=== PATIENT | male | born 1940 | race Caucasian/White ===

== ENCOUNTER 2018-06-04 22:55 | Emergency (ER) | payer MEDICARE, OTHER, SELFPAY ==
[2018-06-04 22:56] VITALS: BP 122/66; PULSE 123; RESP 16; TEMP 36.1; O2SAT 97; BMI 26.9
--- NOTE | 2018-06-05 00:10 | CT_ITS ---
STUDY: CT ABDOMEN AND PELVIS WITHOUT CONTRAST REASON FOR EXAM: Male, 78 years old. Abdominal pain. Vomiting. RADIATION DOSAGE (If Supplied By Facility): CTDIvol = ( 16.85 ) mGy, DLP = ( 930.50 ) mGycm TECHNIQUE: Transaxial images were obtained from the dome of the diaphragm to the symphysis pubis without oral contrast, and without intravenous contrast. Sagittal and coronal images were reconstructed. Individualized dose optimization techniques were used for this CT. COMPARISON: None. FINDINGS: There is mild atelectasis in the visualized posterior lung bases. The visualized portions of the heart are within normal limits. There is decreased attenuation of the liver consistent with steatosis. Normal gallbladder and extrahepatic biliary system. There is mild splenomegaly. There are a few small calcifications in the head of the pancreas which might represent chronic pancreatitis. The pancreas is otherwise normal in appearance with no evidence for acute pancreatitis. Normal bilateral adrenal glands. Normal right kidney. Normal left kidney. There is a small hiatal hernia. Normal small intestine. There are multiple colonic diverticula consistent with diverticulosis. The appendix is visualized posterior to the cecum on axial images 84-96. It contains some radiodense material but otherwise appears normal, with no evidence for acute appendicitis.. There is mild atherosclerotic calcification of the abdominal aorta, without a demonstrated aneurysm. There is an IVC filter in place. Normal retroperitoneum. There are multiple mildly hyperplastic mesenteric lymph nodes in the midabdomen which range up to 7 mm in short axis diameter. There is apparent mild mural thickening of the urinary bladder which may be an artifact of limited distention or may represent cystitis or other bladder pathology. Prostate gland is enlarged. There are small inguinal hernias which contain fat, but no bowel. There are surgical mesh underlying the anterior abdominal wall, consistent with a previous ventral hernia repair. There are diffuse degenerative changes of the visualized lumbar spine. CT/Abdomen/Pelvis without Cont IMPRESSION: Fatty liver. Mild splenomegaly. Suspect chronic pancreatitis. No evidence for acute pancreatitis. Small hiatal hernia. Colonic diverticulosis, without evidence for acute diverticulitis. Enlarged prostate. Mural thickening of the urinary bladder may be an artifact of limited distention or may represent cystitis or bladder pathology. Atherosclerosis. IVC filter. Previous ventral hernia repair. Mild mesenteric lymph node hyperplasia, possibly representing mesenteric lymphadenitis. No demonstrated urinary calculi or hydronephrosis. No evidence for appendicitis. No evidence for bowel obstruction or ileus. Electronically Signed: Dylan Pleitez MD at 1:53 EST , Service support ,
[2018-06-05 00:29] VITALS: PULSE 90; RESP 16; O2SAT 95
[2018-06-05] MEDS: Ondansetron 4 MG/2 ML Vial IV ×2 (00:30→02:20)
[2018-06-05] MEDS: 0.9% Normal Saline 1,000 ML 1000 ML IV (00:30)
[2018-06-05] MEDS: Diphenoxylate/Atrop 1 Tablet PO (00:31)
[2018-06-05 00:39] LABS: Absolute Lymphocyte Count 1.82 X10^3/ul (0.83-4.51); Absolute Neutrophil Count 9.6 X10^3/uL (2.0-7.7); Basophil# 0.01 X10^3/uL; Basophil% 0.1 % (0-1); Eosinophil# 0.31 X10^3/uL; Eosinophils% 2.5 % (0-5); Hematocrit 41.6 % (40-54); Hemoglobin 14.9 g/dl (13.0-16.5); Lymphocyte # 1.82 X10^3/ul (4.0); Lymphocyte % 14.5 % (19-41); Mean Corp Hgb Conc 35.8 g/gl (32-36); Mean Corpuscular Volume 86.7 fL (80-94); Mean Platelet Vol. 10.5 fl (6.2-12.0); Monocyte# 0.81 X10^3/uL; Monocyte% 6.5 % (0-10); Neutrophil # 9.55 X10^3/uL (2.7-7.7); Neutrophil % 76.2 % (47-70); POSITIVE COUNT NO; POSITIVE DIFFERENTIAL NO; POSITIVE MORPHOLOGY NO; Platelet Count 169 K/mm3 (150-450); RBC Distribution Width CV 13.9 % (11.6-14.6); RBC Distribution Width SD 43.7 fl (35.1-43.9); White Blood Count 12.5 K/mm3 (4.4-11.0)
[2018-06-05 01:01] VITALS: BP 132/70; PULSE 83; RESP 16; O2SAT 93
[2018-06-05 01:13] LABS: ALB/GLOB Ratio 0.8 RATIO (0.9-2.4); AST(SGOT) 39 U/L (15-37); Alanine Aminotransfer ALT/SGPT 46 U/L (16-61); Albumin, Serum 3.3 g/dL (3.2-5.0); Alkaline Phosphatase 88 U/L (45-117); Anion Gap 11 (5-15); BUN 24 mg/dL (7-18); BUN/Creat Ratio 17.9 RATIO (10-20); Calcium,Total 9.3 mg/dL (8.5-10.1); Chloride 108 mmol/L (98-107); Creatinine, Serum 1.34 mg/dL (0.70-1.30); EST Glomerular Filtration Rate 55 mL/min (>60); Est Glom Filt Rate - Afr Amer 67 mL/min (>60); Estimated Creatinine Clearance 54.53 ml/min; Globulin 4.3 g/dL (2.2-4.2); Glucose 239 mg/dL (74-106); Lipase 82 U/L (73-393); Potassium 3.2 mmol/L (3.5-5.1); Protein, Total 7.6 g/dL (6.4-8.2); Sodium Level 138 mmol/L (136-145)
[2018-06-05 01:35] VITALS: BP 125/75; PULSE 84; RESP 16; O2SAT 98
[2018-06-05] MEDS: 0.9% Normal Saline 1,000 ML 999 ML IV (02:19)
--- NOTE | 2018-06-05 02:21 | ED.VISSUMM ---
- ER Visit Summary Date of Service: 06/05/18 Chief Complaint: Diarrhea History of Present Illness: The patient is a 78 M presenting for evaluation secondary diarrhea. Patient reports over the course last 6 days he has having loose watery diarrhea. He reports that he is having up to 10-15 episodes per day. This been associated with nausea and vomiting that started today. Patient states that he tends to have a history of getting colitis about once a year but this seems to be lasting somewhat longer. Denies any new exposures, antibiotic use, recent hospital admissions, or travel. Patient does state that he has a mild amount of abdominal pain associated with this that is crampy and diffuse and nonlocalizing. Review of systems otherwise negative. Physical Examination: Vital signs are within normal limits, patient is afebrile. General: Patient is well-nourished well-developed and in no acute distress. Head: Normocephalic, atraumatic Eyes: Pupils equal round and reactive bilaterally, extra occular motion intact bialterally ENT: Moist mucous membranes Neck: Supple, no lymphadenopathy, no JVD, no meningismus CVS: Heart regular rate and rhythm, no murmurs, rubs or gallops, radial pulses 2+ bilaterally Resp: Respirations nondistressed, lung sounds clear bilaterally Abdomen: Soft, diffuse nonlocalizing tenderness, nondistended, no palpable masses, normal bowel sounds Back: Nontender Extremities: Nontender, atraumatic, active full range of motion, no peripheral edema Skin: warm, no rashes, no petechia Neuro: Alert and oriented x 4, CN 2-12 intact, no lateralizing neurological defecits Psyc: Normal affect Test Results: CT abdomen and pelvis shows mesenteric adenitis. CBC shows leukocytosis of 12, chemistry shows mild acidosis CO2 at 19 creatinine 1.3 liver and lipase are unremarkable potassium mildly low at 3.2 Emergency Department Course and Treatment: Patient presented for evaluation secondary to prolonged diarrhea. Does not seem to have any risk factors for infectious colitis, but he did have some mild abdominal tenderness. CT shows mesenteric adenitis. Lab work was essentially unremarkable except for very mild acidosis and mild hypokalemia. Patient was given 2 L normal saline and Lomotil and Zofran had improvement. I had a extensive conversation with patient about inpatient versus outpatient management, he does feel comfortable with outpatient management at this point and given his stable vital signs and relatively normal workup I believe this to be appropriate. He will be sent home with a course of Zofran, instructed on aggressive hydration, he understands signs and symptoms which to return to follow-up with primary care within the next 1-2 days. Disposition: Discharge Impression: 1. Mesenteric adenitis 2. Colitis This note was generated with [employer] dictation software. It may contain incorrect words, spelling, and punctuation that were not noted in review of the chart prior to signing ED Disposition - Plan for ED Patient: Disposition: Home or Assisted Living Chief Complaint: Nausea/Vomiting/Diarrhea Diagnosis: Mesenteric adenitis Instructions: ED Gastroenteritis Non Infec, ED Adenitis Mesenteric Prescriptions: Ondansetron [Zofran Odt] 4 mg PO Q8H PRN PRN #10 tab PRN Reason: Nausea [facility]errals: [facility] [Primary Care Provider] - 2 Days
[2018-06-05 03:45] VITALS: BP 131/78; PULSE 85; RESP 16; O2SAT 95
== END 2018-06-05 03:45 | disposition home or self-care (01) ==
PROVIDERS: Emergency Provider Emergency Medicine
DX: I88.0 Nonspecific mesenteric lymphadenitis (principal); K52.9 Noninfective gastroenteritis and colitis, unspecified; E11.9 Type 2 diabetes mellitus without complications; I10 Essential (primary) hypertension; E78.00 Pure hypercholesterolemia, unspecified; Z86.73 Personal history of transient ischemic attack (TIA), and cerebral infarction without residual deficits; Z86.718 Personal history of other venous thrombosis and embolism
CPT/HCPCS: 74176; 80053; 83690; 85025; 96361; 96374; 96376; 99284; J7030; A4216; J2405

== ENCOUNTER 2020-03-01 10:39 | Emergency (ER) | payer OTHER, MEDICARE, SELFPAY ==
[2020-03-01 10:41] VITALS: BP 148/72; PULSE 71; RESP 16; TEMP 36.3; O2SAT 98; BMI 29.5
[2020-03-01 10:42] VITALS: BP 148/72; PULSE 71; RESP 16; TEMP 36.3; O2SAT 98
--- NOTE | 2020-03-01 10:59 | ED.VIS.GEN ---
History of Present Illness Chief Complaint: Complaint Informant: Patient, Significant Other Onset: Days - 1-2 Context: Gradual Onset Timing: Intermittent Quality: burning Location: urethral Current Severity: Moderate Maximum Severity: Moderate Worsened by: urinating Relieved by: nothing Associated Symptoms: both testicles/scrotum ache. nausea. Narrative: Patient states he has a urethral stricture somewhere, was scheduled for a scope at the [facility] several days ago however since he was on blood thinners for some reason they had to reschedule it for a month from now, he states he urinates frequently, every hour or 2, that is typical for him, but now he has a burning dysuria. No fevers or chills, no new back pain although he has chronic back discomfort. States he is cramping in his lower abdomen. He states when they try to do a bladder scan at the [facility] this past week, they were not able to find his bladder easily and assumed that it was emptying. He denies any hematuria at this time. He is still urinating. - Past Medical History (1) Benign prostatic hyperplasia Status: Chronic (2) Dementia Status: Chronic (3) Depression Status: Chronic (4) History of DVT (deep vein thrombosis) Status: Chronic (5) History of pulmonary embolism Status: Chronic (6) Hyperlipidemia Status: Chronic (7) Hypertension Status: Chronic (8) Type 2 diabetes mellitus Status: Chronic Past Medical History - Allergies and Home Meds Allergies/Adverse Reactions: Allergies No Known Allergies Allergy (Verified 03/01/20 10:42) Primary Care Physician: [place] [place] [Primary Care Provider] - Surgical History: herniorrhaphy Lives: Spouse/ Significant Other Smoking Status: Never smoker - Family History Maternal Family History: Reports: No pertinent history Paternal Family History: Reports: No pertinent history Review of Systems General: Denies: Chills, Fever, Sweats Eyes: Denies: Visual changes - bilaterally, Diplopia ENT: Denies: Rhinorrhea, Sore throat Cardiovascular: Denies: Chest pain, Palpitations Respiratory: Denies: Dyspnea, Cough, Dyspnea on exertion Gastrointestinal: Reports: Abdominal pain, Nausea. Denies: Vomiting, Diarrhea, Melena, Hematochezia Genitourinary: Reports: Dysuria, Frequency. Denies: Hematuria Musculoskeletal: Reports: Back pain. Denies: Neck pain, Extremity Pain Skin: Denies: Rash, Wounds Neurological: Denies: Headache, Weakness, Numbness Physical Exam Vital Signs/Narrative: Vital Signs Temp Pulse Resp BP Pulse Ox 03/01/20 10:42 97.4 F L 71 16 148/72 H 98 03/01/20 10:41 97.4 F L 71 16 148/72 H 98 Inital Vital Signs reviewed: Yes General: Well nourished, Well developed, No Acute Distress Head: Normocephalic, Atraumatic Eyes: Perrl, EOMI ENT: Moist mucous membranes, No rhinorrhea Neck: Supple, Nontender Cardiovascular: Regular rate, Regular rhythm, No murmurs. Negative for: Tachycardia Respiratory: No distress, CTA bilaterally, Chest nontender Abdomen: Soft, Nondistended, Normal bowel sounds, Tender - Suprapubic only. Negative for: Guarding, Rebound tenderness, Pulsatile mass : - - Mild tenderness diffusely scrotum and testicles. Both testicles descended. No blue dot sign, signs of cellulitis, or abnormal cremasteric reflex. Back: Nontender, Normal Inspection. Negative for: CVA tenderness Extremities: Nontender, No edema Skin: Normal color, No rash Neurological: Alert, Oriented x3, Cranial nerves II-XII grossly intact, Normal Strength, Normal Sensation Psychological: Normal affect, Normal Mood Diagnostic/Tx/Re-eval Laboratory Tests 03/01/20 Range/Units 11:32 Urine Color Yellow (Yellow) Urine Clarity Clear (Clear) Urine pH 6.0 (5.0 - 8.0) Ur Specific [place] 1.020 (1.002-1.030) Urine Protein 15 H (Negative) mg/dl Urine Glucose (UA) 1000 H (Normal) mg/dl Urine Ketones 5 H (Negative) mg/dl Urine Occult Blood 10 H (Negative) /ul Urine Nitrite Negative (Negative) Urine Bilirubin Negative (Negative) mg/dL Urine Urobilinogen Normal (Normal) mg/dl Ur Leukocyte Esterase 500 H (Negative) /ul Urine RBC 0 SEEN (0-5) /hpf Urine WBC 10-25 SEEN (0-5) /hpf Ur Squamous Epith Cells 0-5 SEEN (0-5) /hpf Urine Bacteria 0 SEEN (None Seen) /hpf Urine Mucus 0 SEEN (<or=2+) /hpf - Medical Decision Making Patient had a postvoid residual of only 100 cc, which is reassuring evidence against acute urinary retention, and a urinalysis that is consistent with infection. We will treat him for nonhemorrhagic cystitis, and advise close outpatient follow-up with his urologist. He is comfortable with that plan. With regards to his testicular tenderness, if he has epididymitis bilaterally, and/or orchido-epididymitis, the antibiotic should help those as well. ED Disposition - Plan for ED Patient: Disposition: Home or Assisted Living Diagnosis: Cystitis Instructions: ED CYSTITIS Male Adult Prescriptions: Cephalexin [Keflex] 500 mg PO TID #30 cap Transmission Status: Pending to [facility] Referrals: [facility] [Primary Care Provider] - 3-5 Days if not improving (your urologist)
[2020-03-01 11:37] LABS: Bacteria 0 SEEN /hpf (None Seen); Mucous, Urine 0 SEEN /hpf (<or=2+); Red Blood Cells-Urine 0 SEEN /hpf (0-5)
[2020-03-01 11:38] LABS: Color, Urine Yellow (Yellow); Glucose, Dipstick 1000 mg/dl (Normal); Ketone-Dipstick 5 mg/dl (Negative); Leukocyte Esterase-Dipstick 500 /ul (Negative); Nitrite-Dipstick Negative (Negative); Occult Blood-Urine 10 /ul (Negative); Protein-Dipstick 15 mg/dl (Negative); Urine Bilirubin Dipstick Negative (Negative); Urine Clarity Clear (Clear); Urine Urobilinogen Normal (Normal)
[2020-03-01 11:51] LABS: Squamous Epithelial Cells - UA 0-5 SEEN /hpf (0-5); White Blood Cells 10-25 SEEN /hpf (0-5)
[2020-03-01] MEDS: Cephalexin 250 MG Capsule 500 MG PO (12:05)
== END 2020-03-01 12:09 | disposition home or self-care (01) ==
PROVIDERS: Emergency Provider Emergency Medicine
DX: N30.90 Cystitis, unspecified without hematuria (principal); N35.919 Unspecified urethral stricture, male, unspecified site; F03.90 Unspecified dementia, unspecified severity, without behavioral disturbance, psychotic disturbance, mood disturbance, and anxiety; Z86.718 Personal history of other venous thrombosis and embolism; Z86.711 Personal history of pulmonary embolism; E78.5 Hyperlipidemia, unspecified; I10 Essential (primary) hypertension; E11.9 Type 2 diabetes mellitus without complications; Z79.02 Long term (current) use of antithrombotics/antiplatelets; Z79.84 Long term (current) use of oral hypoglycemic drugs; Z79.899 Other long term (current) drug therapy
CPT/HCPCS: 81001; 87086; 87088; 99283

== ENCOUNTER 2020-03-24 13:03 | Emergency (ER) | payer OTHER, MEDICARE, SELFPAY ==
[2020-03-24 13:05] VITALS: BP 143/89; PULSE 86; RESP 18; TEMP 36.7; O2SAT 97; BMI 29.7
--- NOTE | 2020-03-24 14:11 | CT_ITS ---
STUDY: CT ABDOMEN AND PELVIS WITHOUT CONTRAST REASON FOR EXAM: Male, 80 years old. LEFT LOWER ABDOMINAL PAIN AND LEFT TESTICULAR PAIN. Hx of diabetes, HTN and HLD RADIATION DOSAGE (If Supplied By Facility): CTDIvol = ( 16.44 ) mGy, DLP = ( 1573.18 ) mGycm TECHNIQUE: Transaxial images were obtained from the dome of the diaphragm to the symphysis pubis without oral contrast, and without intravenous contrast. Sagittal and coronal images were reconstructed. Individualized dose optimization techniques were used for this CT. COMPARISON: Comparison is made with prior examination dated 06/05/2018. FINDINGS: The visualized lung bases are unremarkable. The visualized portions of the heart are within normal limits. There is decreased attenuation of the liver consistent with steatosis. Normal gallbladder and extrahepatic biliary system. There is mild splenomegaly. Stable punctate calcifications in the head of the pancreas. Normal bilateral adrenal glands. 1 cm cyst in the lateral aspect of the right kidney. Normal left kidney. Normal visualized stomach. Normal small intestine. There are multiple colonic diverticula consistent with diverticulosis. The appendix is visualized and appears normal. There is scattered atherosclerotic calcification of the abdominal aorta, without a demonstrated aneurysm. There is an IVC filter in place. Normal retroperitoneum. Normal urinary bladder. There are prostatic calcifications. There is evidence of prior anterior abdominal wall hernia repair with a mesh. There are mild degenerative changes of the visualized lumbar spine. CT/Abdomen/Pelvis W IV Cont ONLY IMPRESSION: Fatty infiltration of liver. Mild splenomegaly. Sigmoid diverticulosis. Electronically Signed: Sergey Espinoza, at 15:50 EDT , Service support ,
--- NOTE | 2020-03-24 14:13 | US_ITS ---
STUDY: SCROTUM ULTRASOUND REASON FOR EXAM: Male, 80 years old. LEFT TESTICULAR PAIN 3WEEKS -- hx UTI TECHNIQUE: Ultrasound evaluation of the scrotum was performed with color Doppler and static sheikh-scale imaging. COMPARISON: None. FINDINGS: RIGHT TESTICLE INTRATESTICULAR: There is a normal size of the right testicle. The right testicle measures 3.8 cm x 3 cm x 2.5 cm. There is a homogenous echotexture. There is normal arterial and normal venous vascularity. There is no demonstrated right testicular mass or cyst. EXTRATESTICULAR: The epididymis is normal in size. The epididymis head measures 0.6 cm x 1 cm x 0.5 cm. There is increased (hyperemic) vascularity of the epididymis. There is no demonstrated epididymal cystic structure. There is no demonstrated hydrocele. There is no demonstrated varicocele. There is no demonstrated extratesticular mass or cyst. LEFT TESTICLE INTRATESTICULAR: There is a normal size of the left testicle. The left testicle measures 3.1 cm x 2.7 cm x 1.9 cm. There is a homogenous echotexture. There is normal arterial and normal venous vascularity. There is no demonstrated left testicular mass or cyst. EXTRATESTICULAR: The epididymis is enlarged. The epididymis head measures 0.7 cm x 0.8 cm x 0.8 cm. There is increased (hyperemic) vascularity of the epididymis. There is no demonstrated epididymal cystic structure. There is no demonstrated hydrocele. There is no demonstrated varicocele. There is no demonstrated extratesticular mass or cyst. US/Testicular with Arterial Flow IMPRESSION: Findings suggestive of bilateral epididymitis more prominent on the left side. Electronically Signed: Sergey Espinoza, at 15:57 EDT , Service support ,
[2020-03-24] MEDS: Morphine 2 MG/ML Syringe IV (14:33)
[2020-03-24] MEDS: Ondansetron 4 MG/2 ML Vial IV (14:33)
[2020-03-24 14:37] LABS: Absolute Lymphocyte Count 1.87 X10^3/uL (0.83-4.51); Absolute Neutrophil Count 4.6 X10^3/uL (2.0-7.7); Basophil# 0.05 X10^3/uL; Basophil% 0.7 % (0-1); Eosinophil# 0.53 X10^3/uL; Eosinophils% 7.1 % (0-5); Hematocrit 33.2 % (40-54); Lymphocyte # 1.87 X10^3/ul (4.0); Lymphocyte % 25.1 % (19-41); Mean Corp Hgb Conc 33.1 g/dL (32-36); Mean Corpuscular Hgb 29.5 pg (27.0-32.0); Mean Platelet Vol. 9.4 fl (6.2-12.0); Monocyte# 0.41 X10^3/uL; Monocyte% 5.5 % (0-10); NRBC Flagged by Analyzer 0 % (0-5); Neutrophil # 4.57 X10^3/uL (2.7-7.7); Neutrophil % 61.3 % (47-70); Platelet Count 147 K/mm3 (150-450); RBC Distribution Width CV 13.9 % (11.6-14.6); RBC Distribution Width SD 45.1 fl (35.1-43.9); Red Blood Count 3.73 M/mm3 (4.6-6.2); White Blood Count 7.5 K/mm3 (4.4-11.0)
[2020-03-24 14:39] VITALS: BP 143/89; PULSE 86; RESP 18; TEMP 36.7; O2SAT 97
--- NOTE | 2020-03-24 14:47 | ED.DCSUM_ITS ---
History of Present Illness Chief Complaint: Male Pain/Injury Informant: Patient Narrative: 80-year-old male presents with concern for scrotal pain. States that approximately 1 week ago he had an attempted cystoscopy with but was found to have a ureteral stricture. States that since that time he has been developing pain in his lower abdomen including his suprapubic region. Describes it as aching. Patient states he also began developing pain in his left scrotum. Describes this is aching as well. No relieving or worsening factors. Was seen by his primary care physician today who was concerned for a high riding testicle. Denies any trauma to the area. Denies any hematuria. Denies any hematochezia or melena. Moving bowels without issue. Denies any fever, chills, chest pain, shortness of breath, nausea, vomiting. Past Medical History - Allergies and Home Meds Allergies/Adverse Reactions: Allergies No Known Allergies Allergy (Verified 03/24/20 13:10) Primary Care Physician: [place] [place] [Primary Care Provider] - Past Medical History: - - Diabetes, hypertension, pulmonary embolism, DVT, dementia Surgical History: herniorrhaphy Smoking Status: Never smoker Alcohol: None Drugs: None - Family History Maternal Family History: Reports: No pertinent history Paternal Family History: Reports: No pertinent history Physical Exam Vital Signs/Narrative: Vital Signs Temp Pulse Resp BP Pulse Ox 03/24/20 14:39 98.1 F 86 18 143/89 H 97 03/24/20 13:05 98.1 F 86 18 143/89 H 97 Diagnostic/Tx/Re-eval Clinical Impression(s) from Imaging Studies Abdomen/Pelvis CT 03/24/20 14:11 IMPRESSION: Fatty infiltration of liver. Mild splenomegaly. Sigmoid diverticulosis. Electronically Signed: Sergey Espinoza, at 15:50 EDT , Service support , Testicular Ultrasound 03/24/20 14:13 IMPRESSION: Findings suggestive of bilateral epididymitis more prominent on the left side. Electronically Signed: Sergey Espinoza, at 15:57 EDT , Service support , Laboratory Data 03/24/20 03/24/20 03/24/20 14:30 14:30 16:00 WBC 7.5 RBC 3.73 L Hgb 11.0 L Hct 33.2 L MCV 89.0 MCH 29.5 MCHC 33.1 RDW Std Deviation 45.1 H RDW Coeff of Melany 13.9 Plt Count 147 L MPV 9.4 Immature Gran % (Auto) 0.300 Neut % (Auto) 61.3 Lymph % (Auto) 25.1 Whiteside % (Auto) 5.5 Eos % (Auto) 7.1 H Baso % (Auto) 0.7 Absolute Neuts (auto) 4.6 Absolute Lymphs (auto) 1.87 Nucleated RBC % 0 Sodium 139 Potassium 3.9 Chloride 106 Carbon Dioxide 26.0 Anion Gap 7 BUN 16 Creatinine 1.21 Estim Creat Clear Calc 58.50 Est GFR (MDRD) Af Amer 75 Est GFR (MDRD) Non-Af 62 BUN/Creatinine Ratio 13.2 Glucose 311 H Calcium 9.0 Total Bilirubin 0.80 AST 27 ALT 36 Alkaline Phosphatase 65 Total Protein 7.1 Albumin 3.2 Globulin 3.9 Albumin/Globulin Ratio 0.8 L Urine Color Yellow Urine Clarity Sl. Cloudy Urine pH 6.5 Ur Specific [place] 1.010 Urine Protein Negative Urine Glucose (UA) 1000 H Urine Ketones Negative Urine Occult Blood 10 H Urine Nitrite Negative Urine Bilirubin Negative Urine Urobilinogen Normal Ur Leukocyte Esterase Negative Urine RBC 0 SEEN Urine WBC 0 SEEN Ur Squamous Epith Cells 0-5 SEEN Urine Bacteria 0 SEEN Urine Mucus 0 SEEN - Medical Decision Making Appears well and nontoxic. Vital signs within normal limits. Afebrile. CT of the abdomen pelvis shows no acute process. Ultrasound of the scrotum shows a bilateral epididymitis worse on the left. Urine shows no continued evidence of infection following treatment with Keflex last week. Patient will be advised on supportive underwear as well as Tylenol for pain relief. Asked to follow-up with urologist at [place]. Asked to return for new or worsening symptoms. Patient agreeable and discharged home in stable condition. Impression: 1. Bilateral epididymitis ED Disposition - Plan for ED Patient: Disposition: Home or Assisted Living Instructions: ED Epididymitis Referrals: [facility] [Primary Care Provider] -
[2020-03-24 14:54] LABS: ALB/GLOB Ratio 0.8 RATIO (0.9-2.4); AST(SGOT) 27 U/L (15-37); Alanine Aminotransfer ALT/SGPT 36 U/L (16-61); Albumin, Serum 3.2 g/dL (3.2-5.0); Alkaline Phosphatase 65 U/L (45-117); Anion Gap 7 (5-15); BUN 16 mg/dL (7-18); BUN/Creat Ratio 13.2 RATIO (10-20); Chloride 106 mmol/L (98-107); Creatinine, Serum 1.21 mg/dL (0.70-1.30); EST Glomerular Filtration Rate 62 mL/min (>60); Est Glom Filt Rate - Afr Amer 75 mL/min (>60); Globulin 3.9 g/dL (2.2-4.2); Glucose 311 mg/dL (74-106); Potassium 3.9 mmol/L (3.5-5.1); Protein, Total 7.1 g/dL (6.4-8.2); Sodium Level 139 mmol/L (136-145)
[2020-03-24 16:04] LABS: Bacteria 0 SEEN /hpf (None Seen); Mucous, Urine 0 SEEN /hpf (<or=2+); Red Blood Cells-Urine 0 SEEN /hpf (0-5); White Blood Cells 0 SEEN /hpf (0-5)
[2020-03-24 16:23] LABS: Color, Urine Yellow (Yellow); Glucose, Dipstick 1000 mg/dl (Normal); Ketone-Dipstick Negative (Negative); Leukocyte Esterase-Dipstick Negative /ul (Negative); Nitrite-Dipstick Negative (Negative); Occult Blood-Urine 10 /ul (Negative); Protein-Dipstick Negative (Negative); Urine Bilirubin Dipstick Negative (Negative); Urine Clarity Sl. Cloudy (Clear); Urine Urobilinogen Normal (Normal); Urine pH 6.5 (5.0 - 8.0)
[2020-03-24 16:40] LABS: Squamous Epithelial Cells - UA 0-5 SEEN /hpf (0-5)
[2020-03-24 17:04] VITALS: BP 135/77; PULSE 84; RESP 17; O2SAT 98
== END 2020-03-24 17:05 | disposition home or self-care (01) ==
PROVIDERS: Emergency Provider Emergency Medicine
DX: N45.1 Epididymitis (principal); E11.9 Type 2 diabetes mellitus without complications; I10 Essential (primary) hypertension; F03.90 Unspecified dementia, unspecified severity, without behavioral disturbance, psychotic disturbance, mood disturbance, and anxiety; Z86.718 Personal history of other venous thrombosis and embolism; Z86.711 Personal history of pulmonary embolism
CPT/HCPCS: 74177; 76870; 80053; 81001; 85025; 93976; 96374; 96375; 99283; A4216; J2405

== ENCOUNTER → 2020-04-10 | Outpatient (CLI) | payer OTHER, MEDICARE, SELFPAY ==
[2020-03-24 13:05] VITALS: BMI 29.7
--- NOTE | 2020-04-10 14:16 | US_ITS ---
STUDY: SCROTUM ULTRASOUND REASON FOR EXAM: Male, 80 years old. epididymitis -- previous scan on 03/24/20 -- on 2nd round of anti biotics TECHNIQUE: Ultrasound evaluation of the scrotum was performed with color Doppler and static sheikh-scale imaging. COMPARISON: None. FINDINGS: RIGHT TESTICLE INTRATESTICULAR: There is a normal size of the right testicle. The right testicle measures 4.3 x 2.7 x 1.9 cm. There is a homogenous echotexture. There is normal arterial and normal venous vascularity. There is no demonstrated right testicular mass or cyst. EXTRATESTICULAR: The epididymis is normal in size. The epididymis head measures 1.8 cm. There is increased (hyperemic) vascularity of the epididymis. There is no demonstrated epididymal cystic structure. There is no demonstrated hydrocele. There is no demonstrated varicocele. There is no demonstrated extratesticular mass or cyst. Right sided scrotal wall thickening. LEFT TESTICLE INTRATESTICULAR: There is a normal size of the left testicle. The left testicle measures 4.0 x 2.6 x 1.5 cm. There is a heterogeneous echotexture. Ill-defined focal areas of decreased echogenicity are seen as much as 1.4 cm. Heterogeneous left testis is also present previously. There is normal arterial and normal venous vascularity. There is no demonstrated left testicular mass or cyst. EXTRATESTICULAR: The epididymis is normal in size. The epididymis head measures 1.4 cm. There is increased (hyperemic) vascularity of the epididymis. There is no demonstrated epididymal cystic structure. There is no demonstrated hydrocele. There is no demonstrated varicocele. There is no demonstrated extratesticular mass or cyst. Left sided scrotal wall thickening. US/Testicular with Arterial Flow IMPRESSION: Improvement since prior exam. Currently no definite increased vascularity of either testes. Normal blood flow to both testes. Continued increased vascularity of the epididymides. No significant hydroceles. Findings currently suggest bilateral epididymitis with no specific evidence for orchitis. Electronically Signed: Ezequile Hernandez MD at 16:42 EDT , Service support ,
== END | disposition home or self-care (01) ==
LOC: US 14:12
DX: N45.1 Epididymitis (principal)
CPT/HCPCS: 76870; 93976

== ENCOUNTER → 2020-05-04 | Outpatient (CLI) | payer OTHER, MEDICARE, SELFPAY ==
[2020-05-04 16:15] LABS: Hematocrit 35.2 % (40-54); Hemoglobin 11.7 g/dL (13.0-16.5); Mean Corp Hgb Conc 33.2 g/dL (32-36); Mean Corpuscular Hgb 29.9 pg (27.0-32.0); Platelet Count 161 K/mm3 (150-450); RBC Distribution Width CV 14.2 % (11.6-14.6); RBC Distribution Width SD 46.5 fl (35.1-43.9); Red Blood Count 3.91 M/mm3 (4.6-6.2); White Blood Count 7.9 K/mm3 (4.4-11.0)
[2020-05-04 16:37] LABS: ALB/GLOB Ratio 0.8 RATIO (0.9-2.4); AST(SGOT) 34 U/L (15-37); Alanine Aminotransfer ALT/SGPT 42 U/L (16-61); Albumin, Serum 3.3 g/dL (3.2-5.0); Alkaline Phosphatase 67 U/L (45-117); Anion Gap 4 (5-15); BUN 15 mg/dL (7-18); Calcium,Total 8.9 mg/dL (8.5-10.1); Chloride 104 mmol/L (98-107); Creatinine, Serum 1.07 mg/dL (0.70-1.30); EST Glomerular Filtration Rate 71 mL/min (>60); Est Glom Filt Rate - Afr Amer 86 mL/min (>60); Glucose 223 mg/dL (74-106); Potassium 4.1 mmol/L (3.5-5.1); Protein, Total 7.3 g/dL (6.4-8.2); Sodium Level 136 mmol/L (136-145)
== END | disposition home or self-care (01) ==
DX: Z86.718 Personal history of other venous thrombosis and embolism (principal); Z86.711 Personal history of pulmonary embolism
CPT/HCPCS: 36415; 80053; 85027

== ENCOUNTER 2021-11-09 09:53 | Outpatient (CLI) | payer OTHER, MEDICARE, SELFPAY ==
--- NOTE | 2021-11-09 10:01 | PR.ITP_ITS ---
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 Gold Classification:: GOLD 1: Mild - PFT FEV1:: 3.06 - 96% predicted FVC:: 3.72 - 87% predicted FEV1/FVC%:: 82 - 110 % predicted - Personal Learning Style/Barriers Personal Learning Style:: Audio/Visual - , Written Barriers to Learning: Vision impaired, Hearing impaired Stage of change r/t lifestyle modifications: Action Educational Classes [place]: Breathing Retraining: Initial Assessment, Exercise: Initial Assessment, Energy Conservation: Initial Assessment, Preventing infection: Initial Assessment, Nutrition: Initial Assessment - Education/Goals Individual Counseling: Initial Assessment: High Blood Pressure, Diabetes, Overweight/Obesity, Sedentary Lifestyle [place] Patient Goals: Increase muscle strength: Initial Assessment, Experience less dyspnea: Initial Assessment, Improve energy level: Initial Assessment, Improve the ability to cope with ADLs: Initial Assessment, Improve knowledge of lung disease: Initial Assessment, Understand how to use medications: Initial Assessment, Control panic/anxiety: Initial Assessment, Improve my quality of life: Initial Assessment, Reduce Stress/relaxation techniques: Initial Assessment Exercise - Initial Assessment - Visit Date of Eval: 11/09/21 Session Number:: 0 - pre-pulm rehab evaluation - Problem/Goals Problems: Deconditioning, No regular exercise, Knowledge deficit exercise safety Goals:: Aerobic exercise 30-60 mins x 12 weeks [36 sessions] - Physician Prescribed Exercise Modalities: Treadmill, Airdyne, NuStep Frequency (days/week): 3 Duration (Minutes):: 30-45 Intensity: 60-80% of age predicted maximum heart rate reserve Current METSs:: 3.0 Target HR:: 120 - THRR 92-120 Resting Blood Pressure: 116/66 Core Components - Initial Core Components - 30 DAYS Core Components - 60 DAYS Core Components - 90 DAYS Core Components - Final Patient Health Questionnaire Initial Assessment 1. Little interest or pleasure in doing things: Nearly every day 2. Feeling down, depressed, or hopeless: More than half the days 3. Trouble falling or staying asleep, or sleeping too much: Nearly every day 4. Feeling tired or having little energy: Nearly every day 5. Poor appetite or overeating: Not at all 6. Feeling bad about yourself -- or that you are a failure or have let yourself or your family down: Several days 7. Trouble concentrating on things, such as reading the newspaper or watching television: Nearly every day 8. Moving or speaking so slowly that other people could have noticed. Or the opposite - being so fidgety or restless that you have been moving around a lot more than usual: Several days 9. Thoughts that you would be better off , or of hurting yourself in some way: Several days How difficult have these problems made it for you to do your work, take care of things at home, or get along with other people?: Somewhat difficult Total Score: 17 Knowledge Questionaire (BCKQ) - Information Information: [place] COPD Knowledge Questionnaire (BCKQ) This questionnaire is designed to find out what you know about your lung problem. It should be completed without help form anyone else. This usually takes between 10 and 20 minutes. Your answers will help us to find out what information you need to help you to understand and manage your lung condition. Han the chitina which you think is the correct answer. - Questions b. COPD can only be confirmed by breathing tests: Don't know c. In COPD ther is usually gradual worsening over time: True d. In COPD oxygen levels in the blood are always low: Don't know e. COPD is usually in people less than 40 years old: Don't know Desirae than 80% of COPD cases are caused by cigarette smoking: Don't know b. COPD can be caused by occupational dust exposure: True c. Longstanding asthma can develop into COPD: True d. COPD is commonly an inherited disease: False e. Women are less vunerable to the effects of cigarette than men: False a. Swelling of the ankles is common in COPD:: Don't know b. Fatigue [tiredness] is common in COPD: True c. Wheezing is common in COPD: True d. Crushing chest pain is common in COPD: Don't know e. Rapid weight loss is common in COPD: Don't know a. Severe breathlessness prevents travel by air: True b. Breathlessness can be worsened by eating large meals: Don't know c. Breathlessness means that your oxygen levels are low: True d. Breathlessness is a normal response to exercise: True e. Breathlessness is primarily caused by a narrowing of the bronchial tubes: Don't know a. Coughing phlegm is a common symptom in COPD: Don't know b. Clearing phlegm is more difficult if you get dehydrated: Don't know c. Bronchodilator inhalers can help clear phlegm: Don't know d. Phlegm causes harm if swallowed: Don't know e. Clearing phlegm can be assisted by breathing exercises: True a. Chest infections often cause coughing of blood: Don't know b. Chest infection phlegm usually becomes coloured (ylw/grn): Don't know cExerbations (episodes of worsening) can occur in the absence of chest infection: Don't know d. Chest infections are always accompanied by a high temperature: False e. Steroid tablets should be taken whenever there is an exacerbation: Don't know aWalking excercises better than breathing to improve fitness: Don't know b. Exercise should be avoided as it strains the lungs: Don't know c. Exercise can help maintain your bone density: True d. Exercise helps relieve depression: True e. Exercise should be stopped if it makes you breathless: Don't know a. Stopping smoking will reduce the risk of heart disease: True b. Stopping smoking will slow down further lung damage: True c. Stopping smoking is pointless as the damage is done: False d.Stopping smoking usually results in improved lung function: True eNicotine replacement therapy only available on prescription: Don't know a. A flu jab is recommended every year: Don't know b. You can get flu from having a flu jab: False c. You can only have a flu jab if you are 65 or over: Don't know d. A pneumonia jab protects against all forms of pneumonia: Don't know e.You can have a pneumonia jab and a flu job on the same day: Don't know a. Bronchodilators act quickly (within 10 minutes): Don't know b. Both short & long acting bronchodilators can be taken on the same day: Don't know c. Spacers (volumatic,nebuhaler,serochamber)should be dried w/atowel after washing: Don't know d. A spacer device increases the medication to the lungs: Don't know e. Tremor may be a side effect of bronchodilators: Don't know a. To be effective, the course should last at least 10 days: Don't know b. Excessive use of antibiotics can cause resistant bacteria (germs): True c. Antibiotics will clear all chest infections: False d. Antibiotic treatment is necessary for an exacerbation (worsening) however mild: Don't know e. Seek advice if antibiotics cause severe diarrhoea: True a. Steroid tablets help strengthen muscles: Don't know b. Steroid tablets should be avoided if there is a chest infection: Don't know c. The risk of long-term side effects due to steroids is less w/short courses then w/continous treatment: Don't know dIndigestion is common side effect from using steroid tablet: Don't know e. Steroid tablets can increase your appetite: Don't know a. Inhaled steroids should be stopped if you are given steroid tablets: Don't know bSteroid inhalers can be used for rapid relief breathlessnes: Don't know c. Spacer devices reduce the risk of getting thrush in the mouth: Don't know d.Steroid inhaler should be taken before your bronchodilator: Don't know e. Inhaled steroids improve lung function in COPD: Don't know COPD Assessment Test [CAT] - Questions Never cough = 0, Cough all the time = 5: 1 No phlegm = 0, Chest full of phlegm = 5: 0 No chest tightness = 0, Chest very tight = 5: 3 No breathless w/exertion = 0, Very breathless w/exertion = 5: 3 No limitations w/activity = 0, Very limited w/activity = 5: 3 Confident leaving home = 0, Not at all confident = 5: 0 Sleep soundly = 0, Don't sleep soundly = 5: 3 Lots of energy = 0, No energy at all = 5: 5 Total CAT score:: 18 Self-Efficacy Initial Assessment We would like to know how confident you are in doing certain activities. Please select your confidence level for:: Select your confidence level for the following using the scale 1-10 where 1 is not at all confident and 10 is totally confident. Your score is the average of all 6 responses. Fatigue: How confident are you that you can keep the fatigue caused by your disease from interfering with the things you want to do? Select Number: 5 Physical Discomfort or Pain: How confident are you that you can keep the physical discomfort or pain of your disease from interfering with the things you want to do? Select Number: 5 Emotional Distress: How confident are you that you can keep the emotional distress caused by your disease from interfering with the things you want to do? Select Number: 6 Other Symptoms or Health Problems: How confident are you that you can keep other symptoms or health problems from interfering with the things you want to do? Select Number: 6 Different Tasks and Activities: How confident are you that you can do the different tasks and activities needed to manage your health condition so as to reduce your need to see a doctor? Select Number: 4 Medication: How confident are you that you can do things other than just taking medication to reduce how much your illness affects your everyday life? Select Number: 7 Total Score:: 5 Nutrition Survey - Nutrition Survey Initial Have you lost >10 lbs over the past 2 months without trying?: No Are you following a special diet at home for diabetes, low fat, or low salt?: No Are you interested in meeting with a dietitian for help understanding your diet?: No Do you eat less than 3 meals a day?: Yes Do you eat fatty meats (ferris, sausage, ribs, etc), fried foods, desserts, large amounts of salad dressings, margarine, butter, or cheese most days?: No Do you have food allergies? [Enter types in comment field]: No Do you eat in restaurants more than 3 times a week?: No Do you season food with salt, seasoning salt, or garlic salt?: Yes Do you used canned, boxed, frozen meals, or soups, seasoning packets?: No Total Score:: 2
--- NOTE | 2021-11-09 10:01 | PCM.PR.HP ---
History of Present Illness Arrival date:: 11/09/21 Arrival time:: 10:02 Date of Referral:: 10/27/21 Date of Evaluation: 11/09/21 [facility] Primary Diagnosis: COPD [facility] Breathless Scale: When is the patient short of breath? Y/N Grade: Description of Breathlessness: 0 I only get breathless with strenuous exercise. 1 I get short of breath when hurrying on level ground or walking up a slight hill. 2 On level ground, I walk slower than people of the same age because of breathless, or have to stop for breath when walking at my own pace. 3 I stop for breath after walking 100 yards or after a few minutes on level ground. 4 I am too breathless to leave the house or I am breathless when dressing. Respiratory Problems: Yes: Fatigue, Able to Speak in Full Sentences, Dizziness, Anxiety, Dyspnea at Rest, Dyspnea with Activity No: Retain Secretions, Limited Range of Motion, Wheezing - Secretions Thick:: No Thin:: No Hx of Sleep Apnea: Yes Do you snore loudly (louder than talking or can be heard through closed doors)?: Yes - was on a CPAP but kept fighting the machine, told no longer needed. Do you often feel tired/ fatigued/ sleepy during daytime?: Yes Has anyone observed you stop breathing during sleep?: No History of Hypertension (for STOP score): Yes STOP Results: Positive Home Medications: Home Medications apixaban [Eliquis] 5 mg PO BID 08/11/17 atenolol 50 mg PO DAILY 08/11/17 atorvastatin 80 mg PO QHS 08/11/17 glipizide 10 mg PO BIDAC 08/11/17 omeprazole 20 mg PO DAILY 08/11/17 ropinirole [Requip] 0.5 mg PO QHS 08/11/17 tamsulosin 0.4 mg PO QHS 08/11/17 codeine-guaifenesin 10 ml PO Q6H PRN PRN #14 udc 08/13/17 loratadine 10 mg PO DAILY PRN 06/04/18 saxagliptin [Onglyza] 2.5 mg PO DAILY 06/04/18 ondansetron 4 mg PO Q8H PRN PRN #10 tab 06/05/18 cephalexin 500 mg PO TID #30 cap 03/01/20 acetaminophen 325 mg PO Q6H PRN 11/09/21 escitalopram oxalate 5 mg PO DAILY 11/09/21 ezetimibe 10 mg PO DAILY 11/09/21 finasteride 5 mg PO DAILY 11/09/21 fluticasone furoate-vilanterol 1 inh INHALATION DAILY 11/09/21 insulin glargine 42 unit SUBCUT QPM 11/09/21 nitroglycerin 0.4 mg SUBLINGUAL Q5M PRN 11/09/21 pantoprazole 20 mg PO DAILY 11/09/21 pioglitazone 15 mg PO DAILY 11/09/21 semaglutide 1 mg SUBCUT QWEEK 11/09/21 Allergies/Adverse Reactions: Allergies No Known Allergies Allergy (Verified 03/24/20 13:10) Medical Utilization Do you use a peak flow meter at home?: No Do you use a spacer device with your inhalers?: No Number of hospital visits in the last year?: 0 Number of emergency room visits in the last year?: 2 Do you see your physician on a regular schedule?: Yes How often?: 3 months period and as needed for flare-ups or ill Advanced Directives - Advanced Directives Power of Tiller Man: Yes Living Will: Yes Advance Directives Information Provided: No Advance Directives on File: No - patient not sure but he believes they may be o file here at [facility] DNR Order?:: No - MOLST See MOLST form: No Past Medical History - Covid-19 Screening Fever: No Unexplained muscle aches: No Current respiratory symptoms: No Upper respiratory infections symptoms: No Gastro-intestinal symptoms: Yes - H/O GERD [id number] symptoms: No Has tested positive for COVID-19 in last 30 days: No Date of testin11/09/21 - Patient states he has had both vaccines and booster. Had contact w/person w/symptoms or Covid-19 (+) last 14 days: No Has High Risk Exposures ID'd by Health dept/Inf Control team: No 65 years or older:: Yes Lives in Assisted Living facility:: No Has a chronic lung disease or moderate to severe asthma:: Yes Has a serious heart condition:: No Immunocompromised:: No Severely obese (Body Mass Index of 40 or higher):: No Diabetic:: Yes Has chronic kidney disease undergoing dialysis:: No Has liver disease:: Yes Medical History: Past Medical History (Last Updated 11/09/21 @ 10:20 by Von Richey, AURE, LIBRARIAN SPECIALIST, BS) Chronic shortness of breath R06.02 COPD (chronic obstructive pulmonary disease) J44.9 Coronary artery disease I25.10 Diabetes type 2, controlled E11.9 Dizziness R42 on exertion GERD (gastroesophageal reflux disease) K21.9 Pulmonary embolism I26.99 Restrictive lung disease J98.4 PMH Surgical History: Past Surgical History (Last Updated 11/09/21 @ 10:42 by Von Richey, AURE, LIBRARIAN SPECIALIST, BS) H/O adenoidectomy Z90.89 H/O hernia repair Z98.890, Z87.19 Hx of tonsillectomy Z90.89 - Current/ Previous Services Pulmonary Rehab:: No Social History - Smoking History Smoking Status: Never smoker Hx Tobacco Use: No Hx Smoking Exposure: No - Alcohol Use Alcohol Usage: No - Substance Abuse Hx Substance Use: No - Occupation Occupation (List type of work in comments):: Retired - Hobbies, Recreation, Social Activities Hobbies: Other - AmGroSocialRefrigerating Engineer Recreational Activities: I am able to engage in most, but not all activities - just run out of air easily. Functioning ADL/IADL - Current Ability Current Ability: Independent Self-Care (e.g.,grooming, dressing, & bathing), Independent Ambulation, Independent Transfer, Independent Household tasks (e.g., light meal prep, laundry, shopping) - Pt Functioning Prior to Problem Prior Functioning: Self-Care (e.g.,grooming, dressing, & bathing): Independent, Ambulation: Independent, Transfer: Independent, Household tasks (e.g., light meal prep, laundry, shopping): Independent Social Environment - Status Marital Status: - Current Living Arrangements Living Environment:: Spouse - Children How many children do you have?: 4 Do any of your children live nearby?: Yes - Safety Do you feel safe in your surroundings?: Yes - Assistance Do you need any assistance at home?: no Review of Systems Review of Systems: Right click = Denies ([place]). Left click = Reports ([place]) Respiratory: Reports: SOB at Rest - Sometimes, but very rare, SOB upon Exertion - always and worsens over time, Appetite, Normal, Dizziness/Lightheadedness - positional, and especially first thing in the morning sitting up on bedside., Fatigue, Sleep, Normal. Denies: Cough, Sputum production, Wheezing, Sexual changes Is Patient Pain Free?: Yes Pain Location: none Pain Level: 0/10 Risk Factor Assessment - Chief Complaint Chief Complaint: 81 yr male from the [facility] who presents to Pulmonary Rehab today for his COPD/Restrictive Lung Disease. Noted lower lobe fibosis, chronic dypnea with worsening shortness of breath on exertion. Patient denies cough, fever chills, or chest pain today. - Vital Signs Temperature: 98.6 F Pulse Rate: 96 Pulse Rhythm: Regular Respiratory Rate: 16 Pulse Ox: 96 Blood Pressure: 116/66 - Diabetes Diabetic History: Type II, Insulin Dependent Nutrition Referral for Diabetes: Yes - Obesity Height: 6 ft 3 in Weight:: 226 lb 9.6 oz Weight in Pounds: 226.6 lbs Weight Source: Estimated by Patient Body Mass Index (BMI): 28.3 Nutritional Referral for Obesity: No - Risk Stratification Risk Guidelines: Lowest Risk: Risk Factor for Smoking, Risk Factor for Dyslipidemia, Risk Factor for Diabetes - No Glucose Available; No HbA1c Available Motivation - Motivation to Participate On a scale of 1 to 10, how prepared are you to commit to attending program?: 10 What do you see as barriers to successfully being able to complete the program?: not really What do you see as the benefits of succesfully completing the program? In other words, what do you hope to get out of participating in the program?: better breathing, get strength and endurance, improve outlook on life Are there issues you are dealing with that will interfere with completing the program?: no Do you have a spouse or signficant other, family or friends who will help support you to complete the program?: Yes Diagnostic Data Review - 6 Minute Walk Test 6 Minute Walk Test: no feet walked indicated but noted no desaturation on report provided. - Pulmonary Function Test FEV1:: 3.06 FVC:: 3.72 FEV1/FVC%:: 82 Gold Classification: GOLD class I (mild COPD) with FEV1/FVC<70%, FEV1<80% predicted - Mild restrictive disease; fibrosis in the lower lobes.
[2021-11-09 10:48] VITALS: BP 116/66; PULSE 96; RESP 16; TEMP 37; O2SAT 96; BMI 28.3
[2021-11-09 10:57] VITALS: BP 116/66
== END 2021-11-09 23:59 | disposition home or self-care (01) ==
DX: J44.9 Chronic obstructive pulmonary disease, unspecified (principal)

== ENCOUNTER 2021-11-17 10:30 | Outpatient (RCR) | payer OTHER, MEDICARE, SELFPAY | END 2021-11-27 23:59 | LOC: PR 10:30 | DX: R06.00 Dyspnea, unspecified (principal); I27.20 Pulmonary hypertension, unspecified | CPT/HCPCS: 97150; G0239 ==

== ENCOUNTER 2021-12-09 18:36 | Emergency (ER) | payer OTHER, SELFPAY ==
[2021-12-08 07:27] VITALS: BMI 27.9
[2021-12-09 18:37] VITALS: BP 167/154; PULSE 104; RESP 16; TEMP 36.8; O2SAT 98; BMI 28.1
--- NOTE | 2021-12-09 19:25 | CT_ITS ---
STUDY: CT Abdomen And Pelvis W/O Contrast Injection 12/09/2021 8:13 PM REASON FOR EXAM: Male, 81 years old. Abdominal pain abd pain -- lower abd pain, constipation, ? diverticulitis Individualized dose optimization techniques were used for this CT. COMPARISON: Mar 24 2020 3:30pm . TECHNIQUE: CT Abdomen And Pelvis W/O Contrast Injection FINDINGS: There are atherosclerotic calcifications of visualized coronary arteries. The visualized portions of the heart are within normal limits. Normal liver. Normal gallbladder and extrahepatic biliary system. Normal spleen. Normal pancreas. Normal bilateral adrenal glands. No acute findings of the right kidney. No acute findings of the left kidney. Normal visualized stomach. Normal small intestine. There are multiple colonic diverticula consistent with diverticulosis. There is non-visualization of the appendix. Rectal wall thickening and inflammation may suggest a proctitis. There are calcifications of the abdominal aorta. This is consistent for atherosclerotic disease. There is NO abdominal aortic aneurysm. Vascular workup can be obtained based on clinical correlation. There is an IVC filter in place. Subcentimeter mesenteric lymph nodes. Bilateral testicular hydroceles. Normal urinary bladder. There are prostatic calcifications.Anterior abdominal wall hernia mesh in place. There is an umbilical hernia containing fat. There are diffuse degenerative changes of the visualized lumbar spine. Vacuum disc phenomenon. There is bilateral neural foraminal stenosis at L4-5 and L5-S1. CT/Abdomen/Pelvis without Cont IMPRESSION: (NOT LISTED IN ORDER OF SIGNIFICANCE) There are multiple colonic diverticula consistent with diverticulosis. Rectal wall thickening and inflammation may suggest a proctitis. Other findings as above. Electronically Signed: Harsha Grayson MD at 20:15 EDT ,
--- NOTE | 2021-12-09 19:26 | ED.VIS.GI ---
HPI HPI - GI History of Present Illness Chief Complaint: Constipation Informant: patient and spouse/S.O. Narrative Narrative: Here with spouse for evaluation lower abdominal pain and constipation. Typically has 2 bowel movements a day. Last bowel movement yesterday. Today none. However pain started lower abdomen. No fevers. No nausea or vomiting. No urinary symptoms. Colonoscopy 2 years ago states diverticulosis no diverticulitis in the past. Spouse tried to disimpact only had a little bit that was casper. She tried a fleets enema with no relief. Patient on Eliquis for history of DVT. Prior similar symptoms: No PFSH PFSH Medical History Chronic shortness of breath COPD (chronic obstructive pulmonary disease) Coronary artery disease Diabetes type 2, controlled Dizziness GERD (gastroesophageal reflux disease) Pulmonary embolism Restrictive lung disease Home Medications apixaban [Eliquis] 5 mg PO BID 08/11/17 [History Last Taken Unknown] atenolol 50 mg PO DAILY 08/11/17 [History Last Taken Unknown] atorvastatin 80 mg PO QHS 08/11/17 [History Last Taken Unknown] glipizide 10 mg PO BIDAC 08/11/17 [History Last Taken Unknown] omeprazole 20 mg PO DAILY 08/11/17 [History Last Taken Unknown] ropinirole [Requip] 0.5 mg PO QHS 08/11/17 [History Last Taken Unknown] tamsulosin 0.4 mg PO QHS 08/11/17 [History Last Taken Unknown] codeine-guaifenesin 10 ml PO Q6H PRN PRN #14 udc 08/13/17 [Rx Last Taken Unknown] loratadine 10 mg PO DAILY PRN 06/04/18 [History Last Taken Unknown] saxagliptin [Onglyza] 2.5 mg PO DAILY 06/04/18 [History Last Taken Unknown] ondansetron 4 mg PO Q8H PRN PRN #10 tab 06/05/18 [Rx Last Taken Unknown] cephalexin 500 mg PO TID #30 cap 03/01/20 [Rx Last Taken Unknown] acetaminophen 325 mg PO Q6H PRN 11/09/21 [History Last Taken Unknown] escitalopram oxalate 5 mg PO DAILY 11/09/21 [History Last Taken Unknown] ezetimibe 10 mg PO DAILY 11/09/21 [History Last Taken Unknown] finasteride 5 mg PO DAILY 11/09/21 [History Last Taken Unknown] fluticasone furoate-vilanterol 1 inh INHALATION DAILY 11/09/21 [History Last Taken Unknown] insulin glargine 42 unit SUBCUT QPM 11/09/21 [History Last Taken Unknown] nitroglycerin 0.4 mg SUBLINGUAL Q5M PRN 11/09/21 [History Last Taken Unknown] pantoprazole 20 mg PO DAILY 11/09/21 [History Last Taken Unknown] pioglitazone 15 mg PO DAILY 11/09/21 [History Last Taken Unknown] semaglutide 1 mg SUBCUT QWEEK 11/09/21 [History Last Taken Unknown] amoxicillin-pot clavulanate 1 tab PO Q12H #20 tab 12/09/21 [Rx Last Taken Unknown] Allergy/AdvReac Type Severity Reaction Status Date / Time No Known Allergies Allergy Verified 12/09/21 18:37 Surgical History H/O adenoidectomy H/O hernia repair Hx of tonsillectomy Social History Smoking Status: Never smoker ROS ROS ED Constitutional Constitutional ED: Denies chills, fever(s) or sweats Eyes Eyes: Denies change in vision ENT ENT ED: Denies dysphagia or sore throat Cardiovascular Cardiovascular: Denies chest pain, leg edema, palpitations or racing heartbeat Respiratory/Chest Respiratory/Chest: Denies cough, dyspnea or dyspnea on exertion Gastrointestinal Gastrointestinal: Reports abdominal pain and constipation; Denies diarrhea, nausea or vomiting Genitourinary Genitourinary ED: Denies dysuria, hematuria or urinary frequency Musculoskeletal Musculoskeletal: Denies back pain, extremity pain or neck pain Integumentary Denies rash or wounds Neurologic Neurologic: Denies headache(s), paresthesias or weakness EXAM Physical Exam Const Vital Signs: 12/09/21 18:37 12/09/21 21:19 Temperature 98.2 F Temperature Source Temporal Pulse Rate 104 H 79 Respiratory Rate 16 Blood Pressure 167/154 H 147/74 H Blood Pressure Mean 158 98 Pulse Ox 98 Oxygen Delivery Method Room Air Positive well nourished and well developed General Appearance ED: well developed and NAD HEENT Reports moist mucous membranes normocephalic and atraumatic Eyes PERRL, EOMs intact bilaterally and conjunctivae normal General Eye ED: Yes normal appearance of both eyes Neck no lymphadenopathy and supple General: Negative for tenderness Chest Wall Chest: Negative for tenderness Resp normal respiratory effort and normal air movement Effort and Inspection: symmetric chest movement; Negative for respiratory distress Cardio regular rate, regular rhythm and no murmurs Peripheral Pulses: pulses 2+ throughout GI normal to inspection, nondistended, normoactive bowel sounds GI Narrative: Suprapubic tenderness without guarding or rebound. Palpation: Negative for guarding or rebound tenderness present Back/Spine no CVA tenderness and no thoracic nor lumbar tenderness Extremity normal to inspection General Extremety ED: Negative for edema or tenderness General Extremity: Negative for edema Neuro oriented x3 and no sensory deficits noted Sensorium / Orientation: awake and alert Skin no rashes or lesions noted and no wounds MDM MDM MDM Narrative Medical decision making narrative: Patient with mild suprapubic tenderness. Nonsurgical abdomen. Laboratory studies white count 8.8. CT scan positive for thickening rectal wall concerning for proctitis. Reevaluation he had a large bowel movement with relief of symptoms. He is afebrile he did not require any pain medicines. He is placed on Augmentin for treatment. [facility] Return precautions. All questions were answered. Lab Data Attestation: I reviewed the patient's lab results. Labs: Laboratory Results - last 24 hr 12/09/21 12/09/21 19:30 19:30 WBC 8.8 RBC 4.14 L Hgb 12.8 L Hct 37.1 L MCV 89.6 MCH 30.9 MCHC 34.5 RDW Std Deviation 44.3 H RDW Coeff of Melany 13.5 Plt Count 179 MPV 10.1 Immature Gran % (Auto) 0.200 Neut % (Auto) 71.8 H Lymph % (Auto) 18.6 L [place] % (Auto) 5.6 Eos % (Auto) 3.3 Baso % (Auto) 0.5 Absolute Neuts (auto) 6.3 Absolute Lymphs (auto) 1.63 Nucleated RBC % 0 Sodium 140 Potassium 4.2 Chloride 109 H Carbon Dioxide 26.0 Anion Gap 5 BUN 15 Creatinine 1.13 Estim Creat Clear Calc 61.63 Est GFR (MDRD) Af Amer 80 Est GFR (MDRD) Non-Af 66 BUN/Creatinine Ratio 13.3 Glucose 109 H Calcium 9.6 Total Bilirubin 1.20 H AST 28 ALT 36 Alkaline Phosphatase 74 Total Protein 7.4 Albumin 3.4 Globulin 4.0 Albumin/Globulin Ratio 0.8 L Lipase 153 Radiography Diagnostic Testing: Clinical Impression(s) from Imaging Studies Abdomen/Pelvis CT 12/09/21 19:25 IMPRESSION: (NOT LISTED IN ORDER OF SIGNIFICANCE) There are multiple colonic diverticula consistent with diverticulosis. Rectal wall thickening and inflammation may suggest a proctitis. Other findings as above. Electronically Signed: Harsha Grayson MD at 20:15 EDT , Discharge Plan Triage Chief Complaint: Constipation ED Provider: Dequan Olea Dx/Rx/DC Orders Clinical Impression: Acute proctitis, Abdominal pain Instructions: Abdominal Pain, ED Understanding Colitis Prescriptions: New amoxicillin-pot clavulanate 875-125 mg tablet 1 tab PO Q12H Qty: 20 RF: 0 No Action atorvastatin 80 MG tablet 80 mg PO QHS RF: 0 tamsulosin 0.4 MG capsule 0.4 mg PO QHS RF: 0 ropinirole [Requip] 0.5 MG tablet 0.5 mg PO QHS RF: 0 omeprazole 20 MG capsule 20 mg PO DAILY RF: 0 atenolol 50 MG tablet 50 mg PO DAILY RF: 0 glipizide 5 MG tablet 10 mg PO BIDAC RF: 0 apixaban [Eliquis] 5 MG tablet 5 mg PO BID RF: 0 codeine-guaifenesin 5 ML liquid 10 ml PO Q6H PRN PRN (Reason: COUGH/CONGESTION) Qty: 14 RF: 0 saxagliptin [Onglyza] 5 MG tablet 2.5 mg PO DAILY RF: 0 loratadine 10 MG capsule 10 mg PO DAILY PRN (Reason: Allergies) RF: 0 ondansetron 4 MG tablet 4 mg PO Q8H PRN PRN (Reason: Nausea) Qty: 10 RF: 0 cephalexin 500 MG capsule 500 mg PO TID Qty: 30 RF: 0 pioglitazone 15 mg Tablet 15 mg PO DAILY RF: 0 acetaminophen 325 mg Tablet 325 mg PO Q6H PRN (Reason: Pain) RF: 0 insulin glargine 100 unit/mL Solution 42 unit SUBCUT QPM RF: 0 pantoprazole 20 mg Tablet,Delayed Release (Dr/Ec) 20 mg PO DAILY RF: 0 nitroglycerin 0.4 mg Tablet, Sublingual 0.4 mg SUBLINGUAL Q5M PRN (Reason: Chest Pain) RF: 0 finasteride 5 mg Tablet 5 mg PO DAILY RF: 0 ezetimibe 10 mg Tablet 10 mg PO DAILY RF: 0 escitalopram oxalate 5 mg Tablet 5 mg PO DAILY RF: 0 fluticasone furoate-vilanterol 100-25 mcg/dose Blister With Device 1 inh INHALATION DAILY RF: 0 semaglutide 1 mg/dose (4 mg/3 mL) Pen Injector 1 mg SUBCUT QWEEK RF: 0 [facility] [Primary Care Provider] - 1 Week Activity Restrictions/Additional Instructions: CT notes proctitis. Labs are stable white count normal. Take antibiotic as prescribed. Disposition Disposition: Home, Self Care Discharge Date/Time: 12/09/21 21:54
[2021-12-09 19:41] LABS: Absolute Lymphocyte Count 1.63 X10^3/uL (0.83-4.51); Absolute Neutrophil Count 6.3 X10^3/uL (2.0-7.7); Basophil# 0.04 X10^3/uL; Basophil% 0.5 % (0-1); Eosinophil# 0.29 X10^3/uL; Eosinophils% 3.3 % (0-5); Hematocrit 37.1 % (40-54); Hemoglobin 12.8 g/dL (13.0-16.5); Lymphocyte # 1.63 X10^3/ul (0.83-4.51); Lymphocyte % 18.6 % (19-41); Mean Corp Hgb Conc 34.5 g/dL (32-36); Mean Corpuscular Hgb 30.9 pg (27.0-32.0); Mean Corpuscular Volume 89.6 fL (80-94); Mean Platelet Vol. 10.1 fl (6.2-12.0); Monocyte# 0.49 X10^3/uL; Monocyte% 5.6 % (0-10); NRBC Flagged by Analyzer 0 % (0-5); Neutrophil # 6.28 X10^3/uL (2.7-7.7); Neutrophil % 71.8 % (47-70); Platelet Count 179 K/mm3 (150-450); RBC Distribution Width CV 13.5 % (11.6-14.6); RBC Distribution Width SD 44.3 fl (35.1-43.9); Red Blood Count 4.14 M/mm3 (4.6-6.2); White Blood Count 8.8 K/mm3 (4.4-11.0)
[2021-12-09 19:53] LABS: ALB/GLOB Ratio 0.8 RATIO (0.9-2.4); AST(SGOT) 28 U/L (15-37); Alanine Aminotransfer ALT/SGPT 36 U/L (16-61); Albumin, Serum 3.4 g/dL (3.2-5.0); Alkaline Phosphatase 74 U/L (45-117); Anion Gap 5 (5-15); BUN 15 mg/dL (7-18); BUN/Creat Ratio 13.3 RATIO (10-20); Calcium,Total 9.6 mg/dL (8.5-10.1); Chloride 109 mmol/L (98-107); Creatinine, Serum 1.13 mg/dL (0.70-1.30); EST Glomerular Filtration Rate 66 mL/min (>60); Est Glom Filt Rate - Afr Amer 80 mL/min (>60); Estimated Creatinine Clearance 61.63 ml/min; Glucose 109 mg/dL (74-106); Lipase 153 U/L (73-393); Potassium 4.2 mmol/L (3.5-5.1); Protein, Total 7.4 g/dL (6.4-8.2); Sodium Level 140 mmol/L (136-145)
[2021-12-09 21:19] VITALS: BP 147/74; PULSE 79
[2021-12-09] MEDS: Amox/Clavulanate 875 MG Tablet PO (21:52)
== END 2021-12-09 21:54 | disposition home or self-care (01) ==
PROVIDERS: Emergency Provider Emergency Medicine; Visit Provider Emergency Medicine
DX: K62.89 Other specified diseases of anus and rectum (principal); J44.9 Chronic obstructive pulmonary disease, unspecified; E11.9 Type 2 diabetes mellitus without complications; Z79.4 Long term (current) use of insulin; I25.10 Atherosclerotic heart disease of native coronary artery without angina pectoris; R10.9 Unspecified abdominal pain; K21.9 Gastro-esophageal reflux disease without esophagitis; Z86.711 Personal history of pulmonary embolism; Z79.01 Long term (current) use of anticoagulants; Z79.899 Other long term (current) drug therapy; K59.00 Constipation, unspecified
CPT/HCPCS: 74176; 80053; 83690; 85025; 96360; 99284; J7030

== ENCOUNTER 2021-12-24 10:30 | Outpatient (RCR) | payer OTHER, MEDICARE, SELFPAY ==
--- NOTE | 2021-12-08 07:12 | PCM.PR.TP ---
Exercise - 30-Day Assessment - Visit Date of Eval: 12/08/21 Session Number:: 10 - Physician Prescribed Exercise Modalities: Treadmill, NuStep, SciFit Frequency (days/week): 3 Duration (Minutes):: 50 Intensity: 60-80% of age predicted maximum heart rate reserve Aerobic Exercise [30-60 min 3-7x/week]:: Progressing Clarissa-12 METs - Progression 0.5-1.0 weekly:: 0 - Current METSs:: 3.0 Target HR:: 119 - Resting heart rates >109 Rest+ 20 for THRR+ 20 for Current RPD:: 3 Maximum Exercise HR:: 127 Resting Blood Pressure: 108/60 Maximum Exercise Blood Pressure: 122/60 Minimum SpO2 with exercise: 90 - room air EKG Type: NSR to sinus tach w/occasional PAC and PVC Current Minutes of Exercise: 50 - Home Exercise Home Exercise:: No Nutrition/Wt Mgmt - 30-Day - Weight Management Height: 6 ft 3 in - Weight:: 223 lb 8 oz BMI: 27.9 Weight Goals Progress:: Progressing Psychosocial - 30-Day - Visit Date of Eval: 12/08/21 Session Number:: 10 - Problems/Goals History of Emotional Disorders: Depression Psychosocial Goals: 1. Patient is free from overwhelming symtoms of depression (or anxiety, 2. Identifies personal stressors & states the strategies for managing, 3. Identifies activities to decrease isolation and/or symptoms of, 4. Improved psychosocial coping skills., 5. Verbalizes coping strategies., 6. Adequate treatment of depression., 7. Improved Q.O.L. Self-reported stressors: Medical/Health - Psychosocial Test Tool Used:: PHQ-9 Questionnaire PHQ-9 Score: 17 - Concerning when thoughts of being better off and feeling bad about yourself is rated high. Referred to MD for counseling:: No - Referral to Behavioral Health PS - Interventions: Yes Attend Stress Management Classes, No Referral to Behavioral Health if PHQ-9 score >9:, No Referral to [facility], No Referral to Physician if PHQ-9 if score is 5-9: - Plan Interventions/Plan:: Assess stressors,coping strategies & signs of derpression on admission, Instruct/assist pt to develop coping & personal stress Mgt strategies, Instruct patient to recognize signs & symptoms of depression, Instruct patient to recog Oxygen & Oxygen Titration 30D - Visit Date of Eval: 12/08/21 Session Number:: 10 - Reassessment Reassessment- 30 Days: Demonstrate knowledge of O2 Rx at rest & w/exercise Breath Sounds:: Inspiratory Wheezes SpO2:: 94 - @ rest room air Core Components - Initial Core Components - 30 DAYS - Visit Date of Eval: 12/08/21 Session Number:: 10 - Hypertension Resting Blood Pressure:: 108/60 [employer] [place] [employer] Hypertension Guidelines: [place] [employer] Hypertension Guidelines. Normal BP Less than 120/80. Elevated BP 120/80. Hypertension Stage 1: BP 130-139/80-89. Hypertesnion Stage 2: BP 140 or higher/90 or higher. Hypertension Crisis: BP higher than 180/120 Peak Exercise Blood Pressure:: 122/60 Change in medication: No Outcomes/Goals: Able to verbalize/achieve optimal blood pressure <130/80, Incorporates diet changes & exercise for blood pressure control by DC Interventions/plan: Instruct on optimal blood pressure, hypertension & medications, Instruct on effects of sodium, alcohol, stress, exercise &hypertension 30 day Reassessments:: Met - Exacerbation Mgmt & Airway Clearance Reassessment: Demonstrates knowledge of O2 Rx at rest, Demonstrates knowledge of O2 Rx with exercise Bronchial Hygiene Plan: Yes Pt demo correct for improved hydration, Yes Pt demo correct for hand hygiene - Medication Medication list reviewed:: Yes Taking medications 100% of the time:: Met - Diabetes Diabetes:: Yes Insulin dependent injection/pump?: No Non-Insulin Dependent?: Yes Do you monitor your blood sugar at home?: Yes Referral to Diabetic Clinic:: Yes Refer to Nutritional Services: DSMNT & MNT 30-day Reassessments:: Progressing - Heart Failure Documenting weight renee: No Core Components - 60 DAYS Core Components - 90 DAYS Core Components - Final Patient Health Questionnaire 30-Day Re-eval Assessment 1. Little interest or pleasure in doing things: Nearly every day 2. Feeling down, depressed, or hopeless: More than half the days 3. Trouble falling or staying asleep, or sleeping too much: Nearly every day 4. Feeling tired or having little energy: Nearly every day 5. Poor appetite or overeating: Not at all 6. Feeling bad about yourself -- or that you are a failure or have let yourself or your family down: Several days 7. Trouble concentrating on things, such as reading the newspaper or watching television: Nearly every day 8. Moving or speaking so slowly that other people could have noticed. Or the opposite - being so fidgety or restless that you have been moving around a lot more than usual: Several days 9. Thoughts that you would be better off , or of hurting yourself in some way: Several days How difficult have these problems made it for you to do your work, take care of things at home, or get along with other people?: Somewhat difficult Total Score: 17 Knowledge Questionaire (BCKQ) - Information Information: [place] COPD Knowledge Questionnaire (BCKQ) This questionnaire is designed to find out what you know about your lung problem. It should be completed without help form anyone else. This usually takes between 10 and 20 minutes. Your answers will help us to find out what information you need to help you to understand and manage your lung condition. Han the tolowa [id number]' which you think is the correct answer. Self-Efficacy 30-Day Re-eval Assessment We would like to know how confident you are in doing certain activities. Please select your confidence level for:: Select your confidence level for the following using the scale 1-10 where 1 is not at all confident and 10 is totally confident. Your score is the average of all 6 responses. Fatigue: How confident are you that you can keep the fatigue caused by your disease from interfering with the things you want to do? Select Number: 6 Physical Discomfort or Pain: How confident are you that you can keep the physical discomfort or pain of your disease from interfering with the things you want to do? Select Number: 6 Emotional Distress: How confident are you that you can keep the emotional distress caused by your disease from interfering with the things you want to do? Select Number: 6 Other Symptoms or Health Problems: How confident are you that you can keep other symptoms or health problems from interfering with the things you want to do? Select Number: 6 Different Tasks and Activities: How confident are you that you can do the different tasks and activities needed to manage your health condition so as to reduce your need to see a doctor? Select Number: 7 Medication: How confident are you that you can do things other than just taking medication to reduce how much your illness affects your everyday life? Select Number: 8 Total Score:: 6 Nutrition Survey
[2021-12-08 07:27] VITALS: BP 108/60; BP 122/60; O2SAT 94; BMI 27.9
== END 2021-12-28 23:59 ==
LOC: PR 10:30
DX: R06.00 Dyspnea, unspecified (principal)
CPT/HCPCS: 97150; G0239

== ENCOUNTER 2022-01-07 10:30 | Outpatient (RCR) | payer OTHER, SELFPAY ==
[2021-12-08 07:27] VITALS: BMI 27.9
[2021-12-29 01:06] VITALS: BP 108/60; BP 122/60
--- NOTE | 2022-01-05 12:32 | PR.ITP_ITS ---
Exercise - 60-Day Assessment - Visit Date of Eval: 01/05/22 Session Number:: 17 - Patient missed 7 sessions due to rapid heart rates - Physician Prescribed Exercise Modalities: Treadmill, NuStep, SciFit Frequency (days/week): 3 Duration (Minutes):: 30-45 Intensity: 60-80% of age predicted maximum heart rate reserve Aerobic Exercise [30-60 min 3-7x/week]:: Not progressing - limited by generalized weakness and extreme fatigue. Patient gets totally wiped out. Clarissa-[id number] Current METSs: 2.5 unchanged over his 17 attended sessions. Target HR:: 0 - Resting HR + 25 BPM Current RPD:: 14 Maximum Exercise HR:: 111 Resting Blood Pressure: 128/68 Maximum Exercise Blood Pressure: 126/70 Minimum SpO2 with exercise: 89 - room air EKG Type: Sinus tachycardia with occasional PVCs and rare PACs Current Minutes of Exercise: 38:04 - Home Exercise Home Exercise:: No Nutrition/Wt Mgmt - 60-Day - Visit Date of Eval: 01/05/22 - t Session Number:: 17 - Weight Management Height: 6 ft 3 in Weight:: 220 lb BMI: 27.5 Weight Goals Progress:: Progressing - encouraging smaller more frequent meals Psychosocial - 60-Day - Visit Date of Eval: 01/05/22 Session Number:: 17 - Problems/Goals History of Emotional Disorders: Anxious, Depression Psychosocial Goals: 1. Patient is free from overwhelming symtoms of depression (or anxiety, 2. Identifies personal stressors & states the strategies for managing, 3. Identifies activities to decrease isolation and/or symptoms of, 4. Improved psychosocial coping skills., 5. Verbalizes coping strategies., 7. Improved Q.O.L. Depression:: Self report Self-reported stressors: Medical/Health, Recent Illness - Psychosocial Test Tool Used:: Pulmonary QOL, PHQ-9 Questionnaire Referred to MD for counseling:: Yes - Referral to Behavioral Health PS - Interventions: Yes Referral to Physician if PHQ-9 if score is 5-9:, Yes Attend Stress Management Classes, No Referral to Behavioral Health if PHQ-9 score >9:, No [facility]erral to [facility] - Plan Interventions/Plan:: Assess stressors,coping strategies & signs of derpression on admission, Instruct/assist pt to develop coping & personal stress Mgt strategies, Instruct patient to recognize signs & symptoms of depression, Instruct patient to recog Oxygen & Oxygen Titration 60D - Visit Date of Eval: 01/05/22 Session Number:: 17 - Reassessment Reassessment- 60 Days: Demonstrate knowledge of O2 Rx at rest & w/exercise, Has home O2 as Rx'd Breath Sounds:: Crackles & Wheezes SpO2:: 96 - room air at rest Airway Clearance: SMI and P-Flex Devices instructed with patient returning proper technique. Core Components - Initial Core Components - 30 DAYS Core Components - 60 DAYS - Visit Date of Eval: 01/05/22 Session Number:: 17 - Hypertension Hypertension Diagnosis:: Hypertension ICD-10 I10 Resting Blood Pressure:: 128/68 [employer] Hypertension Guidelines: [employer] Hypertension Guidelines. Normal BP Less than 120/80. Elevated BP 120/80. Hypertension Stage 1: BP 130-139/80-89. Hypertesnion Stage 2: BP 140 or higher/90 or higher. Hypertension Crisis: BP higher than 180/120 Peak Exercise Blood Pressure:: 130/68 Change in medication: No Outcomes/Goals: Able to verbalize/achieve optimal blood pressure <130/80, Incorporates diet changes & exercise for blood pressure control by DC Interventions/plan: Instruct on optimal blood pressure, hypertension & medications, Instruct on effects of sodium, alcohol, stress, exercise &hypertension 60 day Reassessments:: Progressing - Exacerbation Mgmt & Airway Clearance Reassessment: Demonstrates knowledge of O2 Rx at rest, Demonstrates knowledge of O2 Rx with exercise Bronchial Hygiene Plan: Yes Pt demonstrates correctly for effective cough, Yes Pt demo correct for improved hydration, Yes Pt demo correct for hand hygiene, Yes Pt demo correct for verbalize when to call MD - Medication Medication list reviewed:: Yes Taking medications 100% of the time:: Approximately 75% of the time - Reinforce importance of using inhalers prior to exertional activities such as his exercising Taking medications 100% of the time:: Approximately 75% of the time Medication reassessment: Yes Pt demonstrates correct technique timing for MDI, Yes Pt demonstrates correct technique timing for DPI, Yes Pt demonstrates correct technique timing for NEB, Yes Pt demonstrates correct technique timing for spacer - Diabetes Diabetes:: No - Heart Failure Documenting weight renee: No Core Components - 90 DAYS Core Components - Final Patient Health Questionnaire 60-Day Re-eval Assessment 1. Little interest or pleasure in doing things: Nearly every day 2. Feeling down, depressed, or hopeless: More than half the days 3. Trouble falling or staying asleep, or sleeping too much: Nearly every day 4. Feeling tired or having little energy: Nearly every day 5. Poor appetite or overeating: Several days 6. Feeling bad about yourself -- or that you are a failure or have let yourself or your family down: Several days 7. Trouble concentrating on things, such as reading the newspaper or watching television: Nearly every day 8. Moving or speaking so slowly that other people could have noticed. Or the opposite - being so fidgety or restless that you have been moving around a lot more than usual: Several days 9. Thoughts that you would be better off , or of hurting yourself in some way: Several days How difficult have these problems made it for you to do your work, take care of things at home, or get along with other people?: Very difficult Total Score: 18 Knowledge Questionaire (BCKQ) - Information Information: [place] [facility] COPD Knowledge Questionnaire (BCKQ) This questionnaire is designed to find out what you know about your lung problem. It should be completed without help form anyone else. This usually takes between 10 and 20 minutes. Your answers will help us to find out what information you need to help you to understand and manage your lung condition. [place] [employer] [place] [place] which you think is the correct answer. Self-Efficacy 60-Day Re-eval Assessment We would like to know how confident you are in doing certain activities. Please select your confidence level for:: Select your confidence level for the [facility] using the scale 1-10 where 1 is not at all confident and 10 is totally confident. Your score is the average of all 6 responses. Fatigue: How confident are you that you can keep the fatigue caused by your disease from interfering with the things you want to do? Select Number: 5 Physical Discomfort or Pain: How confident are you that you can keep the physical discomfort or pain of your disease from interfering with the things you want to do? Select Number: 5 Emotional Distress: How confident are you that you can keep the emotional distress caused by your disease from interfering with the things you want to do? Select Number: 5 Other Symptoms or Health Problems: How confident are you that you can keep other symptoms or health problems from interfering with the things you want to do? Select Number: 5 Different Tasks and Activities: How confident are you that you can do the different tasks and activities needed to manage your health condition so as to reduce your need to see a doctor? Select Number: 5 Medication: How confident are you that you can do things other than just taking medication to reduce how much your illness affects your everyday life? Select Number: 5 Total Score:: 5 Nutrition Survey
[2022-01-05 12:43] VITALS: BP 128/68; BP 130/68; O2SAT 96; BMI 27.5
== END 2022-01-27 23:59 ==
LOC: PR 10:30
DX: R06.00 Dyspnea, unspecified (principal)
CPT/HCPCS: 97150; G0239

== ENCOUNTER 2022-01-14 10:23 | Emergency (ER) | payer OTHER, SELFPAY ==
[2022-01-05 12:43] VITALS: BMI 27.5
[2022-01-14 10:24] VITALS: BP 125/75; PULSE 98; RESP 20; TEMP 36.6; O2SAT 98; BMI 28.2
[2022-01-14 10:46] VITALS: BP 131/64; PULSE 89; RESP 20; O2SAT 98
[2022-01-14 11:00] LABS: Bedside Glucose 282 mg/dL (74-106)
--- NOTE | 2022-01-14 11:34 | EKG12_ITS ---
Test Reason : CP Blood Pressure : / mmHG Vent. Rate : 085 BPM Atrial Rate : 085 BPM P-R Int : 156 ms QRS Dur : 134 ms QT Int : 420 ms P-R-T Axes : 008 -21 027 degrees QTc Int : 499 ms Normal sinus rhythm Right bundle branch block Abnormal ECG Confirmed by AMI NOGUEIRA, BOBBI ([id number]), editorial clerk NATHALIE SYED ([id number]) on 01/17/2022 12:38:01 PM Referred By: DM Confirmed By:BOBBI MUELLER MD
--- NOTE | 2022-01-14 11:34 | RAD_ITS ---
STUDY: X-RAY CHEST REASON FOR EXAM: Male, 81 years old. Chest pain TECHNIQUE: Single AP portable view of the chest. COMPARISON: Comparison is made with prior study dated 08/11/2017. FINDINGS: EKG electrodes are seen. The lungs are clear and expanded. There is no demonstrated pleural abnormality. Normal size heart. Normal mediastinum and raquel. Normal visualized pulmonary arteries. There is atherosclerotic calcification of the aortic arch with tortuosity. Normal visualized thoracic spine. Normal visualized ribs, clavicles, and shoulders. There is no demonstrated abnormality of the visualized soft tissue structures of the upper abdomen. RAD/Chest 1 View (Portable) IMPRESSION: No acute abnormality is seen. Electronically Signed: Sergey Espinoza MD at 12:20 EDT ,
[2022-01-14 11:42] VITALS: O2SAT 96
[2022-01-14 11:52] LABS: Absolute Lymphocyte Count 1.48 X10^3/uL (0.83-4.51); Absolute Neutrophil Count 5.4 X10^3/uL (2.0-7.7); Basophil# 0.02 X10^3/uL; Basophil% 0.3 % (0-1); Eosinophil# 0.29 X10^3/uL; Eosinophils% 3.8 % (0-5); Hematocrit 35.6 % (40-54); Hemoglobin 12.2 g/dL (13.0-16.5); Lymphocyte # 1.48 X10^3/ul (0.83-4.51); Lymphocyte % 19.6 % (19-41); Mean Corp Hgb Conc 34.3 g/dL (32-36); Mean Corpuscular Volume 90.6 fL (80-94); Mean Platelet Vol. 10.2 fl (6.2-12.0); Monocyte# 0.33 X10^3/uL; Monocyte% 4.4 % (0-10); NRBC Flagged by Analyzer 0 % (0-5); Neutrophil # 5.42 X10^3/uL (2.7-7.7); Neutrophil % 71.5 % (47-70); Platelet Count 173 K/mm3 (150-450); RBC Distribution Width CV 13.4 % (11.6-14.6); RBC Distribution Width SD 44.5 fl (35.1-43.9); Red Blood Count 3.93 M/mm3 (4.6-6.2); White Blood Count 7.6 K/mm3 (4.4-11.0)
[2022-01-14 12:12] LABS: Anion Gap 8 (5-15); BUN 17 mg/dL (7-18); BUN/Creat Ratio 14.5 RATIO (10-20); Chloride 107 mmol/L (98-107); Creatinine, Serum 1.17 mg/dL (0.70-1.30); EST Glomerular Filtration Rate 64 mL/min (>60); Est Glom Filt Rate - Afr Amer 77 mL/min (>60); Estimated Creatinine Clearance 59.52 ml/min; Glucose 277 mg/dL (74-106); Potassium 3.7 mmol/L (3.5-5.1); Sodium Level 137 mmol/L (136-145); Troponin-I HS 8 pg/mL (3.0-78.0)
--- NOTE | 2022-01-14 12:57 | CT_ITS ---
STUDY: CT BRAIN WITHOUT CONTRAST REASON FOR EXAM: Male, 81 years old. Headache RADIATION DOSAGE (If Supplied By Facility): CTDIvol = ( 44.99 ) mGy, DLP = ( 846.73 ) mGycm TECHNIQUE: Transaxial CT imaging of the brain was performed without administration of intravenous contrast material. Individualized dose optimization techniques were used for this CT. COMPARISON: Comparison is made with prior study dated 11/05/2012. FINDINGS: Normal soft tissue structures. Normal calvarium. There is mild cerebral atrophy with widening of the extra-axial spaces and ventricular dilatation. There are areas of decreased attenuation within the white matter tracts of the supratentorial brain, consistent with microvascular disease changes. 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 Normal brainstem. Normal cerebellum. There is no intracranial hemorrhage. There are no findings of an acute ischemic infarction. Partial opacification of the ethmoid sinuses bilaterally. Mild degree of mucosal thickening of the right maxillary sinus. CT/Brain/Head without Contrast IMPRESSION: Chronic involutional changes of the brain. Electronically Signed: Sergey Espinoza MD at 13:39 EDT ,
--- NOTE | 2022-01-14 13:23 | EDS_ITS ---
HPI History of Present Illness Chief Complaint: General Illness Informant: patient and spouse/S.O. Narrative Narrative: 81-year-old male presenting to the emergency department with episodic feelings of near syncope. States has been going on for couple months. He has episodes where he will get sweaty with blood pressure of the low feel like being passed out. Today he was at pulmonary rehab and after watching some videos was on his way to the exercise portion when he got these feelings. States he is feeling better now and has a headache behind the right eye. His states that he is on low-dose lisinopril to control his heart rate but notes that he has a cough and she thinks that this is all related to the lisinopril. She states that they talk to their doctor at the [place] about discontinuing the lisinopril and they did not want to do this regularly as the cough. [facility] Medical History Chronic shortness of breath COPD (chronic obstructive pulmonary disease) Coronary artery disease Diabetes type 2, controlled Dizziness GERD (gastroesophageal reflux disease) Pulmonary embolism Restrictive lung disease Home Medications apixaban 5 mg tablet (Eliquis) 5 mg PO BID BLOOD CLOTS 08/11/17 [History Last Taken Unknown] atenolol 50 mg tablet 50 mg PO DAILY HEART 08/11/17 [History Last Taken Unknown] atorvastatin 80 mg tablet 80 mg PO QHS CHOLESTEROL 08/11/17 [History Last Taken Unknown] glipizide 5 mg tablet 10 mg PO BIDAC BLOOD SUGAR/DIABETES 08/11/17 [History Last Taken Unknown] omeprazole 20 mg capsule,delayed release 20 mg PO DAILY gerd 08/11/17 [History Last Taken Unknown] ropinirole 0.5 mg tablet (Requip) 0.5 mg PO QHS RESTLESS LEGS 08/11/17 [History Last Taken Unknown] tamsulosin 0.4 mg capsule 0.4 mg PO QHS PROSTATE/URINATION 08/11/17 [History Last Taken Unknown] loratadine 10 mg capsule 10 mg PO DAILY PRN Allergies 06/04/18 [History Last Taken Unknown] saxagliptin 5 mg tablet (Onglyza) 2.5 mg PO DAILY 06/04/18 [History Last Taken Unknown] ondansetron 4 mg disintegrating tablet 4 mg PO Q8H PRN PRN Nausea #10 tabs 06/05/18 [Rx Last Taken Unknown] acetaminophen 325 mg tablet 325 mg PO Q6H PRN Pain 11/09/21 [History Last Taken Unknown] escitalopram oxalate 5 mg tablet 5 mg PO DAILY 11/09/21 [History Last Taken Unknown] ezetimibe 10 mg tablet 10 mg PO DAILY 11/09/21 [History Last Taken Unknown] finasteride 5 mg tablet 5 mg PO DAILY 11/09/21 [History Last Taken Unknown] fluticasone furoate 100 mcg-vilanterol 25 mcg/dose inhalation powder 1 inh inhalation DAILY 11/09/21 [History Last Taken Unknown] insulin glargine 100 unit/mL subcutaneous solution 42 unit subcut QPM 11/09/21 [History Last Taken Unknown] nitroglycerin 0.4 mg sublingual tablet 0.4 mg sublingual Q5M PRN Chest Pain 11/09/21 [History Last Taken Unknown] pantoprazole 20 mg tablet,delayed release 20 mg PO DAILY 11/09/21 [History Last Taken Unknown] pioglitazone 15 mg tablet 15 mg PO DAILY 11/09/21 [History Last Taken Unknown] semaglutide 1 mg/dose (4 mg/3 mL) subcutaneous pen injector 1 mg subcut QWEEK 11/09/21 [History Last Taken Unknown] Allergy/AdvReac Type Severity Reaction Status Date / Time No Known Allergies Allergy Verified 01/14/22 10:26 Surgical History H/O adenoidectomy H/O hernia repair Hx of tonsillectomy Social History Smoking Status: Never smoker EXAM Physical Exam Const Vital Signs: 01/14/22 10:24 01/14/22 10:46 01/14/22 10:46 Temperature 98 F Temperature Source Temporal Pulse Rate 98 89 Respiratory Rate 20 H 20 H Respiratory Effort Normal Non-Labored Respiratory Pattern Normal Blood Pressure 125/75 H 131/64 H Blood Pressure Mean 91 86 Pulse Ox 98 98 Oxygen Delivery Method Room Air Room Air 01/14/22 11:42 01/14/22 11:43 01/14/22 14:02 Temperature Temperature Source Pulse Rate 108 H Respiratory Rate 22 H Respiratory Effort Normal Non-Labored Respiratory Pattern Blood Pressure 132/73 H Blood Pressure Mean 92 Pulse Ox 96 99 Oxygen Delivery Method Room Air Room Air Positive well nourished and well developed General Appearance ED: well developed HEENT Reports normocephalic, head/scalp atraumatic and moist mucous membranes Eyes PERRL and EOMs intact bilaterally Neck no lymphadenopathy, supple and no JVD Resp normal respiratory effort and clear to auscultation bilaterally Cardio regular rate, regular rhythm and no murmurs GI normal to inspection, nondistended, normoactive bowel sounds and non-tender Palpation: soft Back/Spine no CVA tenderness and normal ROM Extremity normal to inspection General Extremety ED: Negative for edema General Extremity: Negative for edema Neuro oriented x3 and CN's II-XII intact bilaterally Sensorium / Orientation: alert Motor Exam: strength 5/5 throughout Psych mental status grossly normal Mood & Affect: Negative for depressed or tearful Skin no rashes or lesions noted and no wounds MDM MDM MDM Narrative Medical decision making narrative: Basic blood work was negative. Head CT showed no acute process. Troponin is 8. My interpretation of the chest x-ray is no acute process. On repeat examination the patient states he feels like he is drunk and that he is having a hard time even lifting himself up off the bed. Check the urine this was negative. Patient is able to now ambulate to the bathroom and feels good enough to go home. Lab Data Attestation: I reviewed the patient's lab results. Labs: Laboratory Results - last 24 hr 01/14/22 01/14/22 01/14/22 10:45 10:45 10:55 WBC 7.6 RBC 3.93 L Hgb 12.2 L Hct 35.6 L MCV 90.6 MCH 31.0 MCHC 34.3 RDW Std Deviation 44.5 H RDW Coeff of Melany 13.4 Plt Count 173 MPV 10.2 Immature Gran % (Auto) 0.400 Neut % (Auto) 71.5 H Lymph % (Auto) 19.6 [place] % (Auto) 4.4 Eos % (Auto) 3.8 Baso % (Auto) 0.3 Absolute Neuts (auto) 5.4 Absolute Lymphs (auto) 1.48 Nucleated RBC % 0 Sodium 137 Potassium 3.7 Chloride 107 Carbon Dioxide 22.0 Anion Gap 8 BUN 17 Creatinine 1.17 Estim Creat Clear Calc 59.52 Est GFR (MDRD) Af Amer 77 Est GFR (MDRD) Non-Af 64 BUN/Creatinine Ratio 14.5 Glucose 277 H Calcium 9.0 Troponin I High Sens 8 Urine Color Urine Clarity Urine pH Ur Specific [place] Urine Protein Urine Glucose (UA) Urine Ketones Urine Occult Blood Urine Nitrite Urine Bilirubin Urine Urobilinogen Ur Leukocyte Esterase Urine RBC Urine WBC Ur Squamous Epith Cells Amorphous Sediment Urine Bacteria Urine Mucus POC Glucose 282 H 01/14/22 01/14/22 01/14/22 13:54 14:04 15:57 WBC RBC Hgb Hct MCV MCH MCHC RDW Std Deviation RDW Coeff of Melany Plt Count MPV Immature Gran % (Auto) Neut % (Auto) Lymph % (Auto) [place] % (Auto) Eos % (Auto) Baso % (Auto) Absolute Neuts (auto) Absolute Lymphs (auto) Nucleated RBC % Sodium Potassium Chloride Carbon Dioxide Anion Gap BUN Creatinine Estim Creat Clear Calc Est GFR (MDRD) Af Amer Est GFR (MDRD) Non-Af BUN/Creatinine Ratio Glucose Calcium Troponin I High Sens Urine Color Yellow Urine Clarity Sl. Cloudy Urine pH 7.0 Ur Specific [place] 1.010 Urine Protein Negative Urine Glucose (UA) 1000 H Urine Ketones Negative Urine Occult Blood Negative Urine Nitrite Negative Urine Bilirubin Negative Urine Urobilinogen Normal Ur Leukocyte Esterase 100 H Urine RBC 0 SEEN Urine WBC 10-25 SEEN Ur Squamous Epith Cells 10-25 SEEN Amorphous Sediment 1+ PHOS Urine Bacteria 0 SEEN Urine Mucus 0 SEEN POC Glucose 93 59 L Radiography Diagnostic Testing: Clinical Impression(s) from Imaging Studies Chest X-Ray 01/14/22 11:34 IMPRESSION: No acute abnormality is seen. Electronically Signed: Sergey Espinoza MD at 12:20 EDT , Brain CT 01/14/22 12:57 IMPRESSION: Chronic involutional changes of the brain. Electronically Signed: Sergey Espinoza MD at 13:39 EDT , Discharge Plan Triage Chief Complaint: General Illness Other Complaint: Weakness ED Provider: Juventino Lees Dx/Rx/DC Orders Clinical Impression: Near syncope, Acute hypotension Instructions: ED Low Blood Pressure, All Causes Prescriptions: No Action atorvastatin 80 MG tablet 80 mg PO QHS tamsulosin 0.4 MG capsule 0.4 mg PO QHS ropinirole [Requip] 0.5 MG tablet 0.5 mg PO QHS omeprazole 20 MG capsule 20 mg PO DAILY atenolol 50 MG tablet 50 mg PO DAILY glipizide 5 MG tablet 10 mg PO BIDAC Eliquis 5 MG tablet 5 mg PO BID Onglyza 5 MG tablet 2.5 mg PO DAILY loratadine 10 MG capsule 10 mg PO DAILY PRN (Reason: Allergies) ondansetron 4 MG tablet 4 mg PO Q8H PRN PRN (Reason: Nausea) Qty: 10 0RF pioglitazone 15 mg Tablet 15 mg PO DAILY acetaminophen 325 mg Tablet 325 mg PO Q6H PRN (Reason: Pain) insulin glargine 100 unit/mL Solution 42 unit SUBCUT QPM pantoprazole 20 mg Tablet,Delayed Release (Dr/Ec) 20 mg PO DAILY nitroglycerin 0.4 mg Tablet, Sublingual 0.4 mg SUBLINGUAL Q5M PRN (Reason: Chest Pain) finasteride 5 mg Tablet 5 mg PO DAILY ezetimibe 10 mg Tablet 10 mg PO DAILY escitalopram oxalate 5 mg Tablet 5 mg PO DAILY fluticasone furoate-vilanterol 100-25 mcg/dose Blister With Device 1 inh INHALATION DAILY semaglutide 1 mg/dose (4 mg/3 mL) Pen Injector 1 mg SUBCUT QWEEK [facility] [place] Referrals[place] [Primary Care Provider] - As soon as possible Activity Restrictions/Additional Instructions: I do think it is reasonable for you to stop your lisinopril and see if it helps your cough. I would encourage you to follow-up with your doctors as soon as possible Disposition Disposition: Home, Self Care
[2022-01-14 14:01] LABS: Bedside Glucose 93 mg/dL (74-106)
[2022-01-14 14:02] VITALS: BP 132/73; PULSE 108; RESP 22; O2SAT 99
[2022-01-14 14:14] LABS: Bacteria 0 SEEN /hpf (None Seen); Mucous, Urine 0 SEEN /hpf (<or=2+); Red Blood Cells-Urine 0 SEEN /hpf (0-5)
[2022-01-14 14:15] LABS: Color, Urine Yellow (Yellow); Glucose, Dipstick 1000 mg/dl (Normal); Ketone-Dipstick Negative (Negative); Leukocyte Esterase-Dipstick 100 /ul (Negative); Nitrite-Dipstick Negative (Negative); Occult Blood-Urine Negative /ul (Negative); Protein-Dipstick Negative (Negative); Urine Bilirubin Dipstick Negative (Negative); Urine Clarity Sl. Cloudy (Clear); Urine Urobilinogen Normal (Normal)
[2022-01-14 14:26] LABS: Amorphous Sediment 1+ PHOS; Squamous Epithelial Cells - UA 10-25 SEEN /hpf (0-5); White Blood Cells 10-25 SEEN /hpf (0-5)
[2022-01-14 16:00] LABS: Bedside Glucose 59 mg/dL (74-106)
[2022-01-14 16:22] VITALS: BP 129/74; PULSE 89; RESP 16; O2SAT 98
== END 2022-01-14 16:22 | disposition home or self-care (01) ==
PROVIDERS: Emergency Provider Emergency Medicine; Visit Provider Emergency Medicine
DX: R55 Syncope and collapse (principal); J44.9 Chronic obstructive pulmonary disease, unspecified; E11.9 Type 2 diabetes mellitus without complications; Z79.4 Long term (current) use of insulin; I95.9 Hypotension, unspecified; I25.10 Atherosclerotic heart disease of native coronary artery without angina pectoris; K21.9 Gastro-esophageal reflux disease without esophagitis; Z79.899 Other long term (current) drug therapy; Z79.01 Long term (current) use of anticoagulants; Z86.73 Personal history of transient ischemic attack (TIA), and cerebral infarction without residual deficits
CPT/HCPCS: 70450; 71045; 80048; 81001; 82962; 84484; 85025; 93005; 99285

== ENCOUNTER 2022-09-26 12:43 | Emergency (ER) | payer OTHER, SELFPAY ==
[2022-01-05 12:43] VITALS: BMI 27.5
[2022-09-26 12:44] VITALS: BP 148/87; PULSE 92; RESP 18; TEMP 36.8; O2SAT 99
--- NOTE | 2022-09-26 13:52 | EX.ED.DYSGE1 ---
HPI History of Present Illness Chief Complaint: Wound Check Informant: patient and spouse/S.O. Onset/Context/Timing Onset: Weeks Context: Gradual Onset Timing: Continuous Current Severity: Mild Maximum Severity: Mild Narrative Narrative: 82-year-old male history of diabetes, hypertension on Eliquis for DVT. Sent out small pimple on his neck for 2 months and he said over the last week is gotten worse. [facility] who [facility] him on B[facility] but told him if it was not getting better he may need go to the emergency department. Its not improving. He denies any fever or chills. He has been on antibiotic 3 days or so. Prior similar symptoms: Yes Recent Illness/Hospitalization: No PFSH [facility] Medical History Chronic shortness of breath COPD (chronic obstructive pulmonary disease) Coronary artery disease Diabetes type 2, controlled Dizziness GERD (gastroesophageal reflux disease) Pulmonary embolism Restrictive lung disease Home Medications apixaban 5 mg tablet (Eliquis) 5 mg PO BID BLOOD CLOTS 08/11/17 [History Last Taken Unknown] atenolol 50 mg tablet 50 mg PO DAILY HEART 08/11/17 [History Last Taken Unknown] atorvastatin 80 mg tablet 80 mg PO QHS CHOLESTEROL 08/11/17 [History Last Taken Unknown] glipizide 5 mg tablet 10 mg PO BIDAC BLOOD SUGAR/DIABETES 08/11/17 [History Last Taken Unknown] omeprazole 20 mg capsule,delayed release 20 mg PO DAILY gerd 08/11/17 [History Last Taken Unknown] ropinirole 0.5 mg tablet (Requip) 0.5 mg PO QHS RESTLESS LEGS 08/11/17 [History Last Taken Unknown] tamsulosin 0.4 mg capsule 0.4 mg PO QHS PROSTATE/URINATION 08/11/17 [History Last Taken Unknown] loratadine 10 mg capsule 10 mg PO DAILY PRN Allergies 06/04/18 [History Last Taken Unknown] saxagliptin 5 mg tablet (Onglyza) 2.5 mg PO DAILY 06/04/18 [History Last Taken Unknown] ondansetron 4 mg disintegrating tablet 4 mg PO Q8H PRN PRN Nausea #10 tabs 06/05/18 [Rx Last Taken Unknown] acetaminophen 325 mg tablet 325 mg PO Q6H PRN Pain 11/09/21 [History Last Taken Unknown] escitalopram oxalate 5 mg tablet 5 mg PO DAILY 11/09/21 [History Last Taken Unknown] ezetimibe 10 mg tablet 10 mg PO DAILY 11/09/21 [History Last Taken Unknown] finasteride 5 mg tablet 5 mg PO DAILY 11/09/21 [History Last Taken Unknown] fluticasone furoate 100 mcg-vilanterol 25 mcg/dose inhalation powder 1 inh inhalation DAILY 11/09/21 [History Last Taken Unknown] insulin glargine 100 unit/mL subcutaneous solution 42 unit subcut QPM 11/09/21 [History Last Taken Unknown] nitroglycerin 0.4 mg sublingual tablet 0.4 mg sublingual Q5M PRN Chest Pain 11/09/21 [History Last Taken Unknown] pantoprazole 20 mg tablet,delayed release 20 mg PO DAILY 11/09/21 [History Last Taken Unknown] pioglitazone 15 mg tablet 15 mg PO DAILY 11/09/21 [History Last Taken Unknown] semaglutide 1 mg/dose (4 mg/3 mL) subcutaneous pen injector 1 mg subcut QWEEK 11/09/21 [History Last Taken Unknown] Allergy/AdvReac Type Severity Reaction Status Date / Time No Known Allergies Allergy Verified 09/26/22 12:44 Surgical History H/O adenoidectomy H/O hernia repair Hx of tonsillectomy Social History Smoking Status: Never smoker ROS ROS ED ROS Narrative Neck abscess. Review of Systems ROS Unobtainable: Denies due to encephalopathy Constitutional Constitutional ED: Denies chills or fever(s) Eyes Eyes: Denies blurry vision ENT ENT ED: Denies ear pain Cardiovascular Cardiovascular: Denies chest pain Respiratory/Chest Respiratory/Chest: Denies cough or dyspnea Gastrointestinal Gastrointestinal: Denies abdominal pain Genitourinary Genitourinary ED: Denies dysuria or hematuria Musculoskeletal Musculoskeletal: Reports neck pain; Denies arthralgias, back pain or myalgias Integumentary Denies abscess or Abrasions Neurologic Neurologic: Denies headache(s) Psychiatric Psychiatric: Denies anxiety or depression Endocrine Endocrinology: Denies cold intolerance Hematologic/Lymphatic Hematologic/Lymphatic: Reports none Allergic/Immunologic Allergic/Immunologic ED: Denies mouth swelling or tongue swelling EXAM Physical Exam Narrative Exam Narrative: 82-year-old male no acute distress. Vital signs stable afebrile. in room. H EENT exam unremarkable. Posterior neck he has a 2 cm abscess. No surrounding cellulitis. It is fluctuant and tender. Will need to be drained. Trachea midline. No lymphadenopathy. Back otherwise unremarkable. Lungs are clear. Heart regular rhythm. Otherwise exam unremarkable. Const Vital Signs: 09/26/22 12:44 Temperature 98.2 F Temperature Source Temporal Pulse Rate 92 Respiratory Rate 18 Blood Pressure 148/87 H Blood Pressure Mean 107 Pulse Ox 99 Oxygen Delivery Method Room Air Positive well nourished and well developed; Negative for obese, cachectic, contractures or unkempt General Appearance ED: well developed and NAD; Negative for unkempt, cachectic, contractures, cyanotic or diaphoretic Nutritional Appearance: Negative for cachectic or obese HEENT Reports moist mucous membranes; Denies dry mucous membranes Negative for trauma or tenderness Mouth ED: No dry mucous membranes Mouth: No dry mucous membranes Eyes PERRL and EOMs intact bilaterally General Eye ED: Negative for pale conjunctiva or scleral icterus Neck no lymphadenopathy, supple and no JVD Neck Narrative: Posterior neck 2 cm abscess. Fluctuant. Tender. Needs drained. No surrounding cellulitis. General: tenderness Lymph Lymphatic: Negative for other Chest Wall inspection of chest normal and palpation of chest normal Chest: Negative for other Resp normal respiratory effort and clear to auscultation bilaterally Effort and Inspection: Negative for retractions Auscultation: Negative for rales, rhonchi or wheezes Cardio regular rate, regular rhythm, S1 normal heart sound, S2 normal heart sound and no murmurs Palpation: Negative for palpable S3 Rate: Negative for bradycardia Rhythm: Negative for abnormal rhythm GI normal to inspection, nondistended, normoactive bowel sounds, non-tender, non-distended and no masses Inspection: Negative for abdominal distention Auscultation: normoactive bowel sounds Palpation: soft; Negative for tender Bladder / Kidney Exam: No other Back/Spine no CVA tenderness Cervical Spine: Negative for cervical spine tenderness Thoracic Spine / Upper Back: Negative for thoracic spinal tenderness Lumbar Spine / Lower Back: Negative for lumbar spinal tenderness Extremity normal to inspection General Extremety ED: Negative for edema or tenderness General Extremity: Negative for edema Neuro oriented x3 and CN's II-XII intact bilaterally Sensorium / Orientation: alert; Negative for orientation impaired, lethargic or stuporous Motor Exam: strength 5/5 throughout Psych mental status grossly normal Appearance: Negative for unkempt Attitude: No agitated Mood & Affect: Negative for depressed, anxious or tearful Skin no rashes or lesions noted and no wounds Skin Narrative: Abscess posterior neck. Rashes: No rashes noted Trauma: Negative for abrasion MDM MDM MDM Narrative Medical decision making narrative: 82-year-old male abscess on the back of his neck. Has been on antibiotics for 3 days with no improvement. Let will be applied. Local anesthetized with lidocaine. Incised and drained. I incised and drained the patient's abscess in the posterior neck. Primarily sebaceous fluid came out. Small pus. Had a colonoscopy placed a small amount of packing. Patient tolerated procedure well. To be discharged. Procedures Other Procedures Procedure(s): Posterior neck abscess. 2 cm. Local anesthetized with let topically. Then lidocaine subcu. Made a 1 cm horizontal incision. Drained pus and primarily sebaceous fluid consistent with an infected sebaceous cyst. 1 to 2 inches of packing gauze was placed. Patient instructed to pull it out 3 to 4 days. Continue his antibiotic. Follow-up with our nurse or return if reaccumulating. Discharge Plan Triage Chief Complaint: Wound Check ED Provider: Sky Lara Dx/Rx/DC Orders Clinical Impression: Abscess, History of diabetes mellitus, History of deep vein thrombosis of lower extremity, Chronic anticoagulation Instructions: ED Abscess Incision And Drainage Prescriptions: No Action atorvastatin 80 MG tablet 80 mg PO QHS tamsulosin 0.4 MG capsule 0.4 mg PO QHS ropinirole [Requip] 0.5 MG tablet 0.5 mg PO QHS omeprazole 20 MG capsule 20 mg PO DAILY atenolol 50 MG tablet 50 mg PO DAILY glipizide 5 MG tablet 10 mg PO BIDAC Eliquis 5 MG tablet 5 mg PO BID Onglyza 5 MG tablet 2.5 mg PO DAILY loratadine 10 MG capsule 10 mg PO DAILY PRN (Reason: Allergies) ondansetron 4 MG tablet 4 mg PO Q8H PRN PRN (Reason: Nausea) Qty: 10 0RF pioglitazone 15 mg Tablet 15 mg PO DAILY acetaminophen 325 mg Tablet 325 mg PO Q6H PRN (Reason: Pain) insulin glargine 100 unit/mL Solution 42 unit SUBCUT QPM pantoprazole 20 mg Tablet,Delayed Release (Dr/Ec) 20 mg PO DAILY nitroglycerin 0.4 mg Tablet, Sublingual 0.4 mg SUBLINGUAL Q5M PRN (Reason: Chest Pain) finasteride 5 mg Tablet 5 mg PO DAILY ezetimibe 10 mg Tablet 10 mg PO DAILY escitalopram oxalate 5 mg Tablet 5 mg PO DAILY fluticasone furoate-vilanterol 100-25 mcg/dose Blister With Device 1 inh INHALATION DAILY semaglutide 1 mg/dose (4 mg/3 mL) Pen Injector 1 mg SUBCUT QWEEK [facility] [facility] [facility] [Primary Care Provider] - 1 Week if not improving Activity Restrictions/Additional Instructions: You had an infected sebaceous cyst/abscess on the back your neck. That was drained. I placed about 1 to 2 inches of packing material. That can be pulled out in 3 to 4 days. Tylenol for pain. Continue your current medications. Finish the antibiotic as prescribed. Warm compresses or warm shower to the area. This should progressively improve. If it is getting worse return to have it re-evaluated. Disposition Disposition: Home, Self Care
[2022-09-26 14:14] VITALS: BMI 27.6
[2022-09-26] MEDS: Lidocaine/Epi/Tetracaine 50 ML 1 APPLIC TOPICAL (14:16)
[2022-09-26] MEDS: Lidocaine 1% (20 ml mdv) 20 ML Vial 10 ML INFILT (14:16)
[2022-09-26 15:35] VITALS: BP 130/70; PULSE 61; RESP 16; O2SAT 100
== END 2022-09-26 15:36 | disposition home or self-care (01) ==
PROVIDERS: Emergency Provider Emergency Medicine; Visit Provider Emergency Medicine
DX: L02.11 Cutaneous abscess of neck (principal); J44.9 Chronic obstructive pulmonary disease, unspecified; E11.9 Type 2 diabetes mellitus without complications; I25.10 Atherosclerotic heart disease of native coronary artery without angina pectoris; I10 Essential (primary) hypertension; Z79.01 Long term (current) use of anticoagulants; Z86.718 Personal history of other venous thrombosis and embolism
CPT/HCPCS: 10060; 99284

== ENCOUNTER 2024-02-13 12:54 | Emergency (ER) | payer OTHER, SELFPAY ==
[2022-01-05 12:43] VITALS: BMI 27.5
[2024-02-13 12:55] VITALS: BP 134/99; PULSE 101; RESP 18; TEMP 36.9; O2SAT 99; BMI 26.6
--- NOTE | 2024-02-13 13:55 | EX.ED.DYSGE1 ---
HPI History of Present Illness Chief Complaint: Dizziness Informant: patient and spouse/S.O. Onset/Context/Timing Onset: Days (3) Context: Sudden Onset Timing: Continuous Quality: Off balance, lightheaded, swelling sensation Location: Frontal Worsened by: Bending forward and standing up Relieved by: Rest, sleep Narrative Narrative: Patient presents with headache and dizziness that has been getting worse over the last 3 days. Patient states he feels off balance and lightheaded. Patient states he feels like he is swimming. Patient states he has a frontal headache. Patient states his dizziness is worse when he bends forward and then stands up. Patient states it is better with rest and sleep. Patient states he has been having episodes where he sees some black spots in his vision. Patient states he did have recent cataract surgery and has been noticing the spots in his vision since the cataract surgery. Patient admits to some nausea and vomiting. Patient denies any chest pain or shortness of breath. also states he has been doing some work outside in the heat. Patient and think that he may be dehydrated. [facility] Medical History Dizziness Chronic shortness of breath GERD (gastroesophageal reflux disease) Coronary artery disease Pulmonary embolism Restrictive lung disease Diabetes type 2, controlled COPD (chronic obstructive pulmonary disease) Home Medications ?Medication ?Instructions ?Recorded ?Last Taken ?Type apixaban 5 mg tablet (Eliquis) 5 mg PO BID BLOOD CLOTS 08/11/17 Unknown History atenolol 50 mg tablet 50 mg PO DAILY HEART 08/11/17 Unknown History atorvastatin 80 mg tablet 80 mg PO QHS CHOLESTEROL 08/11/17 Unknown History glipizide 5 mg tablet 10 mg PO BIDAC BLOOD SUGAR/DIABETES 08/11/17 Unknown History omeprazole 20 mg capsule,delayed 20 mg PO DAILY gerd 08/11/17 Unknown History release ropinirole 0.5 mg tablet (Requip) 0.5 mg PO QHS RESTLESS LEGS 08/11/17 Unknown History tamsulosin 0.4 mg capsule 0.4 mg PO QHS PROSTATE/URINATION 08/11/17 Unknown History loratadine 10 mg capsule 10 mg PO DAILY PRN Allergies 06/04/18 Unknown History saxagliptin 5 mg tablet (Onglyza) 2.5 mg PO DAILY 06/04/18 Unknown History ondansetron 4 mg disintegrating 4 mg PO Q8H PRN PRN Nausea #10 tabs 06/05/18 Unknown Rx tablet acetaminophen 325 mg tablet 325 mg PO Q6H PRN Pain 11/09/21 Unknown History escitalopram oxalate 5 mg tablet 5 mg PO DAILY 11/09/21 Unknown History ezetimibe 10 mg tablet 10 mg PO DAILY 11/09/21 Unknown History finasteride 5 mg tablet 5 mg PO DAILY 11/09/21 Unknown History fluticasone furoate 100 1 inh inhalation DAILY 11/09/21 Unknown History mcg-vilanterol 25 mcg/dose inhalation powder insulin glargine 100 unit/mL 42 unit subcut QPM 11/09/21 Unknown History subcutaneous solution nitroglycerin 0.4 mg sublingual 0.4 mg sublingual Q5M PRN Chest 11/09/21 Unknown History tablet Pain pantoprazole 20 mg tablet,delayed 20 mg PO DAILY 11/09/21 Unknown History release pioglitazone 15 mg tablet 15 mg PO DAILY 11/09/21 Unknown History semaglutide 1 mg/dose (4 mg/3 mL) 1 mg subcut QWEEK 11/09/21 Unknown History subcutaneous pen injector Allergy/AdvReac Type Severity Reaction Status Date / Time No Known Allergies Allergy Verified 09/26/22 12:44 Surgical History H/O adenoidectomy Hx of tonsillectomy H/O hernia repair Social History household members: spouse housing: house Smoking Status: Never smoker ROS ROS ED Constitutional Constitutional ED: Denies chills or fever(s) Eyes Eyes: Reports change in vision; Denies blurry vision ENT ENT ED: Reports rhinorrhea; Denies sore throat Cardiovascular Cardiovascular: Denies chest pain or palpitations Respiratory/Chest Respiratory/Chest: Denies cough or dyspnea Gastrointestinal Gastrointestinal: Reports nausea and vomiting Genitourinary Genitourinary ED: Denies dysuria or hematuria Musculoskeletal Musculoskeletal: Reports neck pain; Denies back pain Integumentary Denies abscess or rash Neurologic Neurologic: Reports headache(s); Denies weakness Allergic/Immunologic Allergic/Immunologic ED: Denies mouth swelling or urticaria EXAM Physical Exam Const Vital Signs: 02/13/24 12:55 02/13/24 14:00 02/13/24 14:02 Temperature 98.4 F Temperature Source Temporal Pulse Rate 101 H 79 Pulse Rate [Lying] 81 Pulse Rate [Sitting (for 1 minute prior to obtaining)] 89 Pulse Rate [Standing (for 1 minute prior to obtaining)] 88 Respiratory Rate 18 16 Blood Pressure 134/99 H 146/73 H Blood Pressure [Lying] 154/77 H Blood Pressure [Sitting (for 1 minute prior to obtaining)] 154/77 H Blood Pressure [Standing (for 1 minute prior to obtaining)] 152/86 H Blood Pressure Mean 110 97 Blood Pressure Mean [Lying] 102 Blood Pressure Mean [Sitting (for 1 minute prior to obtaining)] 102 Blood Pressure Mean [Standing (for 1 minute prior to obtaining)] 108 Pulse Ox 99 97 Oxygen Delivery Method Room Air 02/13/24 15:00 02/13/24 16:00 Temperature Temperature Source Pulse Rate 75 71 Pulse Rate [Lying] Pulse Rate [Sitting (for 1 minute prior to obtaining)] Pulse Rate [Standing (for 1 minute prior to obtaining)] Respiratory Rate 16 16 Blood Pressure 135/76 H 138/73 H Blood Pressure [Lying] Blood Pressure [Sitting (for 1 minute prior to obtaining)] Blood Pressure [Standing (for 1 minute prior to obtaining)] Blood Pressure Mean 95 94 Blood Pressure Mean [Lying] Blood Pressure Mean [Sitting (for 1 minute prior to obtaining)] Blood Pressure Mean [Standing (for 1 minute prior to obtaining)] Pulse Ox 95 98 Oxygen Delivery Method Room Air Room Air Positive well nourished and well developed General Appearance ED: well developed HEENT Reports moist mucous membranes Eyes PERRL and EOMs intact bilaterally Eyes Narrative: There is mild nystagmus with lateral gaze bilaterally. Neck supple and no JVD Resp normal respiratory effort and clear to auscultation bilaterally Cardio regular rate and regular rhythm GI non-tender and non-distended Palpation: soft Extremity normal to inspection Neuro oriented x3, CN's II-XII intact bilaterally and no sensory deficits noted Neuro Narrative: Lovejoy-Hallpike test was negative. Sensorium / Orientation: alert Motor Exam: strength 5/5 throughout Psych mental status grossly normal MDM MDM MDM Narrative Medical decision making narrative: Differential diagnosis includes dehydration, electrolyte abnormality, stroke, cardiac dysrhythmia, cardiac ischemia, pneumonia, and urinary tract infection. CT scan of the brain will be obtained to assess for stroke and intracranial bleeding. Chest x-ray will be obtained to assess for pneumonia and pneumothorax. CBC will be obtained to assess for leukocytosis and anemia. Basic metabolic profile will be obtained to assess for electrolyte abnormality and renal function. Urinalysis will be obtained to assess for urinary tract infection and hematuria. High-sensitivity troponin will be obtained to assess for cardiac ischemia. Lab Data Attestation: I reviewed the patient's lab results. Lab results narrative: CBC was reviewed and was within normal limits. Basic metabolic profile was reviewed. BUN was slightly elevated at 19. Glucose was slightly elevated at 153. The remainder is within normal limits. High-sensitivity troponin was reviewed and was normal at 7. Urinalysis was reviewed. There is no evidence of urinary tract infection or hematuria. COVID-19 PCR was reviewed and was negative. Influenza PCR was reviewed and was negative for influenza A and influenza B. RSV PCR was reviewed and was negative. Labs: Laboratory Results - last 24 hr 02/13/24 02/13/24 13:10 15:17 WBC 8.9 RBC 4.36 L Hgb 13.2 Hct 39.0 L MCV 89.4 MCH 30.3 MCHC 33.8 RDW Std Deviation 44.2 H RDW Coeff of Melany 13.5 Plt Count 193 MPV 10.2 Immature Gran % (Auto) 0.200 Neut % (Auto) 63.2 Lymph % (Auto) 25.4 [place] % (Auto) 6.0 Eos % (Auto) 4.5 Baso % (Auto) 0.7 Absolute Neuts (auto) 5.6 Absolute Lymphs (auto) 2.27 Nucleated RBC % 0 Sodium 139 Potassium 3.7 Chloride 106 Carbon Dioxide 27.0 Anion Gap 6 BUN 19 H Creatinine 1.15 Estim Creat Clear Calc 57.58 Est GFR (MDRD) Af Amer 78 Est GFR (MDRD) Non-Af 65 BUN/Creatinine Ratio 16.5 Glucose 153 H Calcium 9.7 Troponin I High Sens 7 Urine Color Yellow Urine Clarity Clear Urine pH 6.0 Ur Specific [place] 1.020 Urine Protein Negative Urine Glucose (UA) 50 H Urine Ketones Negative Urine Occult Blood 10 H Urine Nitrite Negative Urine Bilirubin Negative Urine Urobilinogen 1 H Ur Leukocyte Esterase 25 H Urine RBC 0-5 SEEN Urine WBC 0-5 SEEN Ur Squamous Epith Cells 0-5 SEEN Urine Bacteria 0 SEEN Urine Mucus 0 SEEN Radiography Diagnostic Testing: Clinical Impression(s) from Imaging Studies Brain CT 02/13/24 14:02 IMPRESSION: Chronic involutional changes of the brain. Sinusitis of the maxillary and ethmoid sinuses. Electronically Signed: Sergey Espinoza MD at 14:54 EDT , Chest X-Ray 02/13/24 14:42 IMPRESSION: No acute abnormality is seen. Electronically Signed: Sergey Espinoza MD at 14:55 EDT , CT scan of the brain was obtained. There is no acute intracranial abnormality. There are chronic involutional changes noted. There is sinusitis of the maxillary and ethmoid sinuses. This was interpreted by the radiologist and was also independently reviewed by myself. PA and lateral chest x-ray was obtained. There are 2 views. On my independent interpretation, lung alba are clear. There is normal cardiac silhouette. Bony thorax is normal. There is no acute process noted. Radiologist also interpreted the x-ray and agrees. EKG Initial EKG: Attestation: I personally reviewed and interpreted this EKG as follows: Interpretation: Sinus Rhythm (88) and RBBB Comments: EKG was obtained. On my independent interpretation, shows normal sinus rhythm with a rate of 88. FL interval was normal at 168 ms. QRS interval was prolonged at 132 ms. QTc interval was somewhat prolonged at 500 ms. There is left axis deviation at -32. There is a right bundle branch block pattern noted. There is left ventricular hypertrophy noted. There are no acute ST or T wave changes noted. Prior EKG tracings: available for review Prior: Unchanged (01/14/2022) Treatment and Re-Evaluation :: Orthostatic vital signs were obtained. Patient was given IV fluids. Patient was feeling better on reevaluation. Patient was advised of his findings. Patient was able to ambulate without difficulty. Patient wants to go home. Patient was instructed to drink plenty of fluids. Patient was instructed to follow-up with his primary care physician in 5 to 7 days. Patient was instructed to return if worse in any way. Patient understood and was agreeable with the plan. All questions were answered. Discharge Plan Triage Chief Complaint: Dizziness ED Provider: Darvin Ceron Dx/Rx/DC Orders Clinical Impression: Dizziness, Type 2 diabetes mellitus Instructions: ED Dehydration (Adult), ED Dizziness, Uncertain Cause Prescriptions: No Action atorvastatin 80 MG tablet 80 mg PO QHS tamsulosin 0.4 MG capsule 0.4 mg PO QHS ropinirole [Requip] 0.5 MG tablet 0.5 mg PO QHS omeprazole 20 MG capsule 20 mg PO DAILY atenolol 50 MG tablet 50 mg PO DAILY glipizide 5 MG tablet 10 mg PO BIDAC Eliquis 5 MG tablet 5 mg PO BID Onglyza 5 MG tablet 2.5 mg PO DAILY loratadine 10 MG capsule 10 mg PO DAILY PRN (Reason: Allergies) ondansetron 4 MG tablet 4 mg PO Q8H PRN PRN (Reason: Nausea) Qty: 10 0RF pioglitazone 15 mg Tablet 15 mg PO DAILY acetaminophen 325 mg Tablet 325 mg PO Q6H PRN (Reason: Pain) insulin glargine 100 unit/mL Solution 42 unit SUBCUT QPM pantoprazole 20 mg Tablet,Delayed Release (Dr/Ec) 20 mg PO DAILY nitroglycerin 0.4 mg Tablet, Sublingual 0.4 mg SUBLINGUAL Q5M PRN (Reason: Chest Pain) finasteride 5 mg Tablet 5 mg PO DAILY ezetimibe 10 mg Tablet 10 mg PO DAILY escitalopram oxalate 5 mg Tablet 5 mg PO DAILY fluticasone furoate-vilanterol 100-25 mcg/dose Blister With Device 1 inh INHALATION DAILY semaglutide 1 mg/dose (4 mg/3 mL) Pen Injector 1 mg SUBCUT QWEEK [facility]Primary [facility] Provider] - 3-5 Days Print Language: Sami Disposition Disposition: Home, Self Care
[2024-02-13 14:00] VITALS: BP 146/73; PULSE 79; RESP 16; O2SAT 97
[2024-02-13 14:02] VITALS: BP 152/86; BP 154/77; PULSE 81; PULSE 88; PULSE 89
--- NOTE | 2024-02-13 14:02 | EKG12_ITS ---
Test Reason : DIZZY Blood Pressure : / mmHG Vent. Rate : 088 BPM Atrial Rate : 088 BPM P-R Int : 168 ms QRS Dur : 132 ms QT Int : 414 ms P-R-T Axes : 041 -32 035 degrees QTc Int : 500 ms Normal sinus rhythm Left axis deviation Right bundle branch block Minimal voltage criteria for LVH, may be normal variant ( R in aVL ) Abnormal ECG Confirmed by MANI NOGUEIRA, BRAD ([id number]), multimedia editor NATHALIE SYED ([id number]) on 02/15/2024 10:35:13 A M Referred By: WILDER/JOVAN Confirmed By:ALONSO SINGLETON MD
--- NOTE | 2024-02-13 14:02 | CT_ITS ---
STUDY: CT BRAIN WITHOUT CONTRAST REASON FOR EXAM: Male, 84 years old. Dizziness RADIATION DOSAGE (If Supplied By Facility): CTDIvol = ( 44.99 ) mGy, DLP = ( 829.85 ) mGycm TECHNIQUE: Transaxial CT imaging of the brain was performed without administration of intravenous contrast material. Individualized dose optimization techniques were used for this CT. COMPARISON: Comparison is made with prior study dated January 14, 2022. FINDINGS: Normal soft tissue structures. Normal calvarium. There is mild cerebral atrophy with widening of the extra-axial spaces and ventricular dilatation. There are areas of decreased attenuation within the white matter tracts of the supratentorial brain, consistent with microvascular disease changes. 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 Normal brainstem. Normal cerebellum. There is no intracranial hemorrhage. There are no findings of an acute ischemic infarction. Atherosclerotic calcification of the cavernous portions of the internal carotid arteries bilaterally. Mucosal thickening along the inferior aspect of the maxillary sinuses and partial opacification of the ethmoid sinuses bilaterally. CT/Brain/Head without Contrast IMPRESSION: Chronic involutional changes of the brain. Sinusitis of the maxillary and ethmoid sinuses. Electronically Signed: Sergey Espinoza MD at 14:54 EDT ,
[2024-02-13] MEDS: 0.9% Normal Saline (1000mL) 1,000 ML 1000 ML IV (14:26)
--- NOTE | 2024-02-13 14:42 | RAD_ITS ---
STUDY: X-RAY CHEST REASON FOR EXAM: Male, 84 years old. Dizziness TECHNIQUE: PA and lateral views of the chest. COMPARISON: Comparison is made with prior study dated January 14, 2022. FINDINGS: EKG electrodes are seen. The lungs are clear and expanded. There is no demonstrated pleural abnormality. Normal size heart. Normal mediastinum and raquel. Normal visualized pulmonary arteries. There is atherosclerotic tortuosity of the aortic arch and descending thoracic aorta. There are diffuse degenerative changes of the visualized thoracic spine. Normal visualized ribs, clavicles, and shoulders. There is no demonstrated abnormality of the visualized soft tissue structures of the upper abdomen. RAD/Chest PA and Lateral IMPRESSION: No acute abnormality is seen. Electronically Signed: Sergey Espinoza MD at 14:55 EDT ,
[2024-02-13 15:00] VITALS: BP 135/76; PULSE 75; RESP 16; O2SAT 95
[2024-02-13 15:15] LABS: Absolute Lymphocyte Count 2.27 X10^3/uL (0.83-4.51); Absolute Neutrophil Count 5.6 X10^3/uL (2.0-7.7); Basophil# 0.06 X10^3/uL; Basophil% 0.7 % (0-1); Eosinophils% 4.5 % (0-5); Hemoglobin 13.2 g/dL (13.0-16.5); Lymphocyte # 2.27 X10^3/ul (0.83-4.51); Lymphocyte % 25.4 % (19-41); Mean Corp Hgb Conc 33.8 g/dL (32-36); Mean Corpuscular Hgb 30.3 pg (27.0-32.0); Mean Corpuscular Volume 89.4 fL (80-94); Mean Platelet Vol. 10.2 fl (6.2-12.0); Monocyte# 0.54 X10^3/uL; NRBC Flagged by Analyzer 0 % (0-5); Neutrophil # 5.64 X10^3/uL (2.7-7.7); Neutrophil % 63.2 % (47-70); Platelet Count 193 K/mm3 (150-450); RBC Distribution Width CV 13.5 % (11.6-14.6); RBC Distribution Width SD 44.2 fl (35.1-43.9); Red Blood Count 4.36 M/mm3 (4.6-6.2); White Blood Count 8.9 K/mm3 (4.4-11.0)
[2024-02-13 15:16] LABS: Anion Gap 6 (5-15); BUN 19 mg/dL (7-18); BUN/Creat Ratio 16.5 RATIO (10-20); Calcium,Total 9.7 mg/dL (8.5-10.1); Chloride 106 mmol/L (98-107); Creatinine, Serum 1.15 mg/dL (0.70-1.30); EST Glomerular Filtration Rate 65 mL/min (>60); Est Glom Filt Rate - Afr Amer 78 mL/min (>60); Estimated Creatinine Clearance 57.58 ml/min; Glucose 153 mg/dL (74-106); Potassium 3.7 mmol/L (3.5-5.1); Sodium Level 139 mmol/L (136-145); Troponin-I HS 7 pg/mL (3.0-78.0)
[2024-02-13 15:22] LABS: Bacteria 0 SEEN /hpf (None Seen); Mucous, Urine 0 SEEN /hpf (<or=2+)
[2024-02-13 15:32] LABS: Color, Urine Yellow (Yellow); Glucose, Dipstick 50 mg/dl (Normal); Ketone-Dipstick Negative (Negative); Leukocyte Esterase-Dipstick 25 /ul (Negative); Nitrite-Dipstick Negative (Negative); Occult Blood-Urine 10 /ul (Negative); Protein-Dipstick Negative (Negative); Urine Bilirubin Dipstick Negative (Negative); Urine Clarity Clear (Clear); Urine Urobilinogen 1 mg/dl (Normal)
[2024-02-13 15:38] LABS: Red Blood Cells-Urine 0-5 SEEN /hpf (0-5); Squamous Epithelial Cells - UA 0-5 SEEN /hpf (0-5); White Blood Cells 0-5 SEEN /hpf (0-5)
[2024-02-13 16:00] VITALS: BP 138/73; PULSE 71; RESP 16; O2SAT 98
[2024-02-13 16:31] VITALS: BP 138/73; PULSE 71; RESP 16; TEMP 36.7; O2SAT 98
== END 2024-02-13 16:33 | disposition home or self-care (01) ==
PROVIDERS: Emergency Provider Emergency Medicine; Visit Provider Emergency Medicine
DX: R42 Dizziness and giddiness (principal); J44.9 Chronic obstructive pulmonary disease, unspecified; E11.9 Type 2 diabetes mellitus without complications; R51.9 Headache, unspecified; R11.2 Nausea with vomiting, unspecified; I25.10 Atherosclerotic heart disease of native coronary artery without angina pectoris; I45.10 Unspecified right bundle-branch block
CPT/HCPCS: 70450; 71046; 80048; 81001; 84484; 85025; 87631; 93005; 96360; 99285; J7030; A4216

== ENCOUNTER 2024-10-09 09:51 | Emergency (ER) | payer OTHER, SELFPAY ==
[2022-01-05 12:43] VITALS: BMI 27.5
[2024-10-09] VITALS (21 sets, daily range): BP systolic 123–172; BP diastolic 72–85; PULSE 70–98; RESP 16–24; TEMP 36.4–36.8; O2SAT 90–100; BMI 25.7
--- NOTE | 2024-10-09 10:17 | EKG12_ITS ---
Test Reason : Blood Pressure : */* mmHG Vent. Rate : 88 BPM Atrial Rate : 88 BPM P-R Int : 164 ms QRS Dur : 130 ms QT Int : 418 ms P-R-T Axes : 13 -34 21 degrees QTcB Int : 505 ms Normal sinus rhythm Left axis deviation Right bundle branch block Minimal voltage criteria for LVH, may be normal variant ( R in aVL ) Abnormal ECG Confirmed by MANI NOGUEIRA, BRAD ([id number]), society editor NATHALIE SYED ([id number]) on 10/14/2024 11:12:05 AM Referred By: MARTA Confirmed By: BRAD SINGLETON MD
--- NOTE | 2024-10-09 10:19 | EX.ED.DYSGE1 ---
HPI History of Present Illness Chief Complaint: Abd Pain Informant: patient Narrative Narrative: 84-year-old male presenting to the emergency room with abdominal pain. Patient states that his was admitted last night got home around midnight and he ate 2 [employer] sandwich pop. He slept for about 4 hours got up and came to the hospital. He was walking down the hallway and began to experience some upper mid abdominal pain. States he feels nauseated. No vomiting. Did not have a bowel movement this morning. He did pass gas. He urinated. No reported fevers. He states his legs feel very shaky. He had a glass of milk this morning and wonders if his blood sugar was low (BGT 192) [facility] Medical History Dizziness Chronic shortness of breath GERD (gastroesophageal reflux disease) Coronary artery disease Pulmonary embolism Restrictive lung disease Diabetes type 2, controlled COPD (chronic obstructive pulmonary disease) Home Medications ?Medication ?Instructions ?Recorded ?Last Taken ?Type apixaban 5 mg tablet (Eliquis) 5 mg PO BID BLOOD CLOTS 08/11/17 Unknown History atenolol 50 mg tablet 50 mg PO DAILY HEART 08/11/17 Unknown History atorvastatin 80 mg tablet 80 mg PO QHS CHOLESTEROL 08/11/17 Unknown History glipizide 5 mg tablet 10 mg PO BIDAC BLOOD SUGAR/DIABETES 08/11/17 Unknown History omeprazole 20 mg capsule,delayed 20 mg PO DAILY gerd 08/11/17 Unknown History release ropinirole 0.5 mg tablet (Requip) 0.5 mg PO QHS RESTLESS LEGS 08/11/17 Unknown History tamsulosin 0.4 mg capsule 0.4 mg PO QHS PROSTATE/URINATION 08/11/17 Unknown History loratadine 10 mg capsule 10 mg PO DAILY PRN Allergies 06/04/18 Unknown History saxagliptin 5 mg tablet (Onglyza) 2.5 mg PO DAILY 06/04/18 Unknown History ondansetron 4 mg disintegrating 4 mg PO Q8H PRN PRN Nausea #10 tabs 06/05/18 Unknown Rx tablet acetaminophen 325 mg tablet 325 mg PO Q6H PRN Pain 11/09/21 Unknown History escitalopram oxalate 5 mg tablet 5 mg PO DAILY 11/09/21 Unknown History ezetimibe 10 mg tablet 10 mg PO DAILY 11/09/21 Unknown History finasteride 5 mg tablet 5 mg PO DAILY 11/09/21 Unknown History fluticasone furoate 100 1 inh inhalation DAILY 11/09/21 Unknown History mcg-vilanterol 25 mcg/dose inhalation powder insulin glargine 100 unit/mL 42 unit subcut QPM 11/09/21 Unknown History subcutaneous solution nitroglycerin 0.4 mg sublingual 0.4 mg sublingual Q5M PRN Chest 11/09/21 Unknown History tablet Pain pantoprazole 20 mg tablet,delayed 20 mg PO DAILY 11/09/21 Unknown History release pioglitazone 15 mg tablet 15 mg PO DAILY 11/09/21 Unknown History semaglutide 1 mg/dose (4 mg/3 mL) 1 mg subcut QWEEK 11/09/21 Unknown History subcutaneous pen injector Allergy/AdvReac Type Severity Reaction Status Date / Time No Known Allergies Allergy Verified 10/09/24 09:54 Surgical History H/O adenoidectomy Hx of tonsillectomy H/O hernia repair Social History household members: spouse housing: house Smoking Status: Never smoker ROS ROS ED Constitutional Constitutional ED: Denies chills or weight loss Eyes Eyes: Denies change in vision or diplopia ENT ENT ED: Denies ear pain, rhinorrhea or sore throat Cardiovascular Cardiovascular: Denies chest pain, orthopnea, palpitations or racing heartbeat Respiratory/Chest Respiratory/Chest: Denies cough, dyspnea or orthopnea Gastrointestinal Gastrointestinal: Reports abdominal pain and nausea; Denies diarrhea or vomiting Genitourinary Genitourinary ED: Denies dysuria, hematuria or urinary frequency Musculoskeletal Musculoskeletal: Denies arthralgias or myalgias Integumentary Denies abscess or rash Neurologic Neurologic: Reports other Details: Shakiness ; Denies headache(s) or weakness Psychiatric Psychiatric: Denies anxiety, depression, suicidal ideation or suicidal thoughts Endocrine Endocrinology: Denies polydipsia, polyphagia or polyuria Allergic/Immunologic Allergic/Immunologic ED: Denies mouth swelling, tongue swelling or urticaria EXAM Physical Exam Const Vital Signs: 10/09/24 09:51 10/09/24 11:45 10/09/24 12:30 Temperature 97.5 F L Temperature Source Temporal Pulse Rate 95 98 95 Respiratory Rate 16 24 H 20 H Blood Pressure 172/84 H 157/82 H 154/72 H Blood Pressure Mean 113 103 94 Pulse Ox 100 Oxygen Delivery Method Room Air 10/09/24 14:00 Temperature Temperature Source Pulse Rate 98 Respiratory Rate 23 H Blood Pressure 167/84 H Blood Pressure Mean 107 Pulse Ox Oxygen Delivery Method Positive well nourished and well developed General Appearance ED: well developed HEENT Reports normocephalic, head/scalp atraumatic and moist mucous membranes Eyes PERRL and EOMs intact bilaterally Neck no lymphadenopathy, supple and no JVD Resp normal respiratory effort and clear to auscultation bilaterally Cardio regular rate, regular rhythm and no murmurs Rate: tachycardic GI Inspection: Negative for abdominal distention Auscultation: normoactive bowel sounds Palpation: soft and tender epigastric; Negative for guarding or rebound tenderness present Back/Spine no CVA tenderness and normal ROM Extremity normal to inspection General Extremety ED: Negative for edema General Extremity: Negative for edema Neuro oriented x3 and CN's II-XII intact bilaterally Sensorium / Orientation: alert Motor Exam: strength 5/5 throughout Psych mental status grossly normal Mood & Affect: Negative for depressed or tearful Skin no rashes or lesions noted and no wounds MDM MDM MDM Narrative Medical decision making narrative: Differential diagnosis includes but not limited to anxiety reaction pancreatitis biliary colic GERD bowel obstruction mesenteric ischemia anemia electrolyte abnormalities dehydration coronary artery disease Patient's EKG is a normal sinus rhythm. His white count is 9.6 hemoglobin 12.5 platelet count of 166 LFTs showed a chronic elevation of his total bilirubin. Lipase nonspecifically elevated at [address] and pelvis with IV contrast was obtained. No evidence of bowel obstruction. Please see radiologist read for full details. They are reading some nonspecific mild stranding around the head of the pancreas. He received Ativan and Zofran and repeat examination shows abdomen benign and he was able to sleep but when he awoke and began speaking with his his symptoms returned while I was speaking with him. I gave him morphine and additional small dose of Ativan well Zofran and he is doing better. There could be a component of early pancreatitis but I feel like a lot of his symptoms are stress-induced. He concurs with this sentiment. I am advising him to get some sleep to let his rest and for him to monitor symptoms. If he is worsening he can return to the emergency department for repeat examination History & Record Review Discussion w/independent historian: Patient Lab Data Attestation: I reviewed the patient's lab results. Labs: Laboratory Results - last 24 hr 10/09/24 10/09/24 10/09/24 09:58 10:45 10:50 WBC 9.6 RBC 4.11 L Hgb 12.5 L Hct 35.7 L MCV 86.9 MCH 30.4 MCHC 35.0 RDW Std Deviation 42.3 RDW Coeff of Melany 13.5 Plt Count 166 MPV 9.5 Immature Gran % (Auto) 0.200 Neut % (Auto) 73.4 H Lymph % (Auto) 17.0 L [place] % (Auto) 6.9 Eos % (Auto) 2.1 Baso % (Auto) 0.4 Absolute Neuts (auto) 7.0 Absolute Lymphs (auto) 1.63 Nucleated RBC % 0 Sodium 138 Potassium 3.5 Chloride 103 Carbon Dioxide 22.6 Anion Gap 13 BUN 18 Creatinine 1.03 Estim Creat Clear Calc 64.29 Est GFR (MDRD) Non-Af 73 BUN/Creatinine Ratio 17.1 Glucose 195 H Calcium 9.6 Total Bilirubin 1.37 H Direct Bilirubin 0.56 H AST 27 ALT 27 Alkaline Phosphatase 75 Total Protein 6.7 Albumin 3.9 Globulin 2.8 Lipase 85 H Urine Color Yellow Urine Clarity Clear Urine pH 7.0 Ur Specific [place] 1.010 Urine Protein 15 H Urine Glucose (UA) 250 H Urine Ketones Negative Urine Occult Blood Negative Urine Nitrite Negative Urine Bilirubin Negative Urine Urobilinogen Normal Ur Leukocyte Esterase Negative Urine RBC 0 SEEN Urine WBC 0 SEEN Ur Squamous Epith Cells 0-5 SEEN Urine Bacteria 0 SEEN Urine Mucus 0 SEEN POC Glucose 192 H Radiography Diagnostic Testing: Clinical Impression(s) from Imaging Studies Abdomen/Pelvis CT 10/09/24 11:30 IMPRESSION: 1. Subtle fat stranding is identified in the pancreatic head could relate to acute pancreatitis. Clinical correlation is recommended. 2. Small esophageal hiatal hernia. 3. Bilateral inguinal hernias. 4. No obstructive uropathy. 5. Colonic diverticulosis without acute diverticulitis. Reading Location: [facility] EKG Initial EKG: Attestation: I personally reviewed and interpreted this EKG as follows: Comments: Normal sinus rhythm ventricular rate of 88 bpm. Right bundle branch block is noted Discharge Plan Triage Chief Complaint: Abd Pain ED Provider: Juventino Lees Dx/Rx/DC Orders Clinical Impression: Abdominal pain, Anxiety Instructions: Abdominal Pain, ED Anxiety Reaction Prescriptions: No Action atorvastatin 80 MG tablet 80 mg PO QHS tamsulosin 0.4 MG capsule 0.4 mg PO QHS ropinirole [Requip] 0.5 MG tablet 0.5 mg PO QHS omeprazole 20 MG capsule 20 mg PO DAILY atenolol 50 MG tablet 50 mg PO DAILY glipizide 5 MG tablet 10 mg PO BIDAC Eliquis 5 MG tablet 5 mg PO BID Onglyza 5 MG tablet 2.5 mg PO DAILY loratadine 10 MG capsule 10 mg PO DAILY PRN (Reason: Allergies) ondansetron 4 MG tablet 4 mg PO Q8H PRN PRN (Reason: Nausea) Qty: 10 0RF pioglitazone 15 mg Tablet 15 mg PO DAILY acetaminophen 325 mg Tablet 325 mg PO Q6H PRN (Reason: Pain) insulin glargine 100 unit/mL Solution 42 unit SUBCUT QPM pantoprazole 20 mg Tablet,Delayed Release (Dr/Ec) 20 mg PO DAILY nitroglycerin 0.4 mg Tablet, Sublingual 0.4 mg SUBLINGUAL Q5M PRN (Reason: Chest Pain) finasteride 5 mg Tablet 5 mg PO DAILY ezetimibe 10 mg Tablet 10 mg PO DAILY escitalopram oxalate 5 mg Tablet 5 mg PO DAILY fluticasone furoate-vilanterol 100-25 mcg/dose Blister With Device 1 inh INHALATION DAILY semaglutide 1 mg/dose (4 mg/3 mL) Pen Injector 1 mg SUBCUT QWEEK [facility] Care Provider[facility] Referrals[place] [facility] [Primary Care Provider] - Activity Restrictions/Additional Instructions: If you are feeling worse or unable to take p.o. fluids without vomiting please return to the emergency department. As we discussed I feel a lot of your symptoms are related to your situation with your . Please eat healthy today and get sleep. Print Language: Kuwaiti Disposition Disposition: Home, Self Care
[2024-10-09 10:24] LABS: Bedside Glucose 192 mg/dL (74-106)
[2024-10-09] MEDS: Ondansetron 4 MG/2 ML Vial IV ×2 (10:44→13:55)
[2024-10-09] MEDS: Lorazepam 2 MG/ML WCH Syringe 0.5 MG IV ×2 (10:44→13:56)
[2024-10-09 10:55] LABS: Absolute Lymphocyte Count 1.63 X10^3/uL (0.83-4.51); Basophil# 0.04 X10^3/uL; Basophil% 0.4 % (0-1); Eosinophils% 2.1 % (0-5); Hematocrit 35.7 % (40-54); Hemoglobin 12.5 g/dL (13.0-16.5); Lymphocyte # 1.63 X10^3/ul (0.83-4.51); Mean Corpuscular Hgb 30.4 pg (27.0-32.0); Mean Corpuscular Volume 86.9 fL (80-94); Mean Platelet Vol. 9.5 fl (6.2-12.0); Monocyte# 0.66 X10^3/uL; Monocyte% 6.9 % (0-10); NRBC Flagged by Analyzer 0 % (0-5); Neutrophil # 7.02 X10^3/uL (2.7-7.7); Neutrophil % 73.4 % (47-70); Platelet Count 166 K/mm3 (150-450); RBC Distribution Width CV 13.5 % (11.6-14.6); RBC Distribution Width SD 42.3 fl (35.1-43.9); Red Blood Count 4.11 M/mm3 (4.6-6.2); White Blood Count 9.6 K/mm3 (4.4-11.0)
[2024-10-09 11:23] LABS: AST(SGOT) 27 U/L (<=37); Alanine Aminotransfer ALT/SGPT 27 U/L (<=46); Albumin, Serum 3.9 g/dL (3.4-4.8); Alkaline Phosphatase 75 U/L (40-129); Anion Gap 13 (5-15); BUN 18 mg/dL (4-19); BUN/Creat Ratio 17.1 RATIO (10-20); Bilirubin, Direct 0.56 mg/dL (0.00-0.30); Calcium,Total 9.6 mg/dL (7.6-11.0); Carbon Dioxide 22.6 mmol/L (21.0-32.0); Chloride 103 mmol/L (98-108); Creatinine, Serum 1.03 mg/dL (0.70-1.20); EST Glomerular Filtration Rate 73 (>60); Estimated Creatinine Clearance 64.29 ml/min (50-250); Globulin 2.8 g/dL (2.2-4.2); Glucose 195 mg/dL (70-99); Lipase 85 U/L (13-75); Potassium 3.5 mmol/L (3.3-5.1); Protein, Total 6.7 g/dL (5.9-8.4); Sodium Level 138 mmol/L (133-145); Total Bilirubin 1.37 mg/dL (0.00-1.30)
--- NOTE | 2024-10-09 11:30 | CT_ITS ---
EXAM: CT Abdomen and Pelvis With Intravenous Contrast CLINICAL INDICATION: ABDOMINAL PAIN TECHNIQUE: Axial computed tomography images of the abdomen and pelvis with intravenous contrast. This CT exam was performed using one or more of the following dose reduction techniques: automated exposure control, adjustment of the mA and/or kV according to patient size, and/or use of iterative reconstruction technique. COMPARISON: CT Abdomen Pelvis dated 12/09/2021 FINDINGS: LUNG BASES: Unremarkable. No mass. No consolidation. MEDIASTINUM: Small esophageal hiatal hernia. ABDOMEN: LIVER: Fatty infiltration of the liver. GALLBLADDER AND BILE DUCTS: Unremarkable. No calcified stones. No ductal dilation. PANCREAS: Subtle fat stranding is identified in the pancreatic head could relate to acute pancreatitis. Clinical correlation is recommended. No ductal dilation. SPLEEN: Unremarkable. No splenomegaly. ADRENALS: Unremarkable. No mass. KIDNEYS AND URETERS: Unremarkable. No stones within either kidney. No hydronephrosis. STOMACH AND BOWEL: Colonic diverticulosis without acute diverticulitis. No obstruction. PELVIS: APPENDIX: No findings to suggest acute appendicitis. BLADDER: Unremarkable. No mass. REPRODUCTIVE: Unremarkable as visualized. ABDOMEN and PELVIS: INTRAPERITONEAL SPACE: Unremarkable. No free air. No significant fluid collection. BONES/JOINTS: No acute fracture. No dislocation. SOFT TISSUES: Bilateral inguinal hernias. VASCULATURE: Scattered calcified atherosclerotic disease of aorta. No abdominal aortic aneurysm. LYMPH NODES: Unremarkable. No enlarged lymph nodes. CT/Abdomen/Pelvis W IV Cont ONLY IMPRESSION: 1. Subtle fat stranding is identified in the pancreatic head could relate to a cute pancreatitis. Clinical correlation is recommended. 2. Small esophageal hiatal hernia. 3. Bilateral inguinal hernias. 4. No obstructive uropathy. 5. Colonic diverticulosis without acute diverticulitis. Reading [facility]
[2024-10-09 12:06] LABS: Bacteria 0 SEEN /hpf (None Seen); Mucous, Urine 0 SEEN /hpf (<or=2+); White Blood Cells 0 SEEN /hpf (0-5)
[2024-10-09 12:07] LABS: Color, Urine Yellow (Yellow); Glucose, Dipstick 250 mg/dl (Normal); Ketone-Dipstick Negative (Negative); Leukocyte Esterase-Dipstick Negative /ul (Negative); Nitrite-Dipstick Negative (Negative); Occult Blood-Urine Negative /ul (Negative); Protein-Dipstick 15 mg/dl (Negative); Urine Bilirubin Dipstick Negative (Negative); Urine Clarity Clear (Clear); Urine Urobilinogen Normal (Normal)
[2024-10-09 12:19] LABS: Squamous Epithelial Cells - UA 0-5 SEEN /hpf (0-5)
[2024-10-09 12:20] LABS: Red Blood Cells-Urine 0 SEEN /hpf (0-5)
[2024-10-09] MEDS: Morphine 4 MG/ML Syringe IV (13:55)
--- NOTE | 2024-10-09 15:30 | ED.RN ---
Upon discharge patient became nauseated. Patient back in room and Dr. Lees notified. Orders entered.
[2024-10-09] MEDS: Ondansetron ODT 4 MG Tablet PO (15:40)
== END 2024-10-09 18:43 | disposition home or self-care (01) ==
PROVIDERS: Emergency Medicine; Emergency Provider Emergency Medicine; Visit Provider Emergency Medicine
DX: R10.9 Unspecified abdominal pain (principal); J44.9 Chronic obstructive pulmonary disease, unspecified; E11.9 Type 2 diabetes mellitus without complications; F41.9 Anxiety disorder, unspecified; I25.10 Atherosclerotic heart disease of native coronary artery without angina pectoris; K21.9 Gastro-esophageal reflux disease without esophagitis
CPT/HCPCS: 74177; 80048; 80076; 81001; 82962; 83690; 85025; 93005; 96374; 96375; 96376; 99283; Q9967; A4216; J2405

== ENCOUNTER 2024-10-10 04:57 | Inpatient (IN) | payer OTHER, SELFPAY ==
[2022-01-05 12:43] VITALS: BMI 27.5
[2024-10-10] VITALS (11 sets, daily range): BP systolic 134–168; BP diastolic 58–99; PULSE 82–99; RESP 16–17; TEMP 36.8–37.2; O2SAT 91–98; BMI 23.8; BMI 25.2
[2024-10-10 05:28] LABS: Absolute Lymphocyte Count 1.54 X10^3/uL (0.83-4.51); Absolute Neutrophil Count 16.8 X10^3/uL (2.0-7.7); Basophil# 0.04 X10^3/uL; Basophil% 0.2 % (0-1); Eosinophil# 0.04 X10^3/uL; Eosinophils% 0.2 % (0-5); Hematocrit 38.3 % (40-54); Hemoglobin 13.4 g/dL (13.0-16.5); Lymphocyte # 1.54 X10^3/ul (0.83-4.51); Lymphocyte % 7.8 % (19-41); Mean Corpuscular Hgb 30.5 pg (27.0-32.0); Mean Corpuscular Volume 87.2 fL (80-94); Monocyte# 1.26 X10^3/uL; Monocyte% 6.4 % (0-10); NRBC Flagged by Analyzer 0 % (0-5); Neutrophil # 16.77 X10^3/uL (2.7-7.7); Neutrophil % 84.7 % (47-70); Platelet Count 187 K/mm3 (150-450); RBC Distribution Width CV 13.5 % (11.6-14.6); Red Blood Count 4.39 M/mm3 (4.6-6.2); White Blood Count 19.8 K/mm3 (4.4-11.0)
--- NOTE | 2024-10-10 05:42 | ED.VIS.GI ---
HPI HPI - GI History of Present Illness Chief Complaint: Abd Pain Informant: patient and family Narrative Narrative: Patient is an 84-year-old male with history of DVT, PE (on Eliquis), diabetes, dementia, hypertension hyperlipidemia presenting back to the emergency room for continued abdominal pain. Patient was actually seen in our ER for this pain yesterday. He states since discharged home he is continue to have pain. He had episode of vomiting while in the emergency room. Is not really been able to eat or drink anything. States anytime he drinks he gets worsening pain and starts belching. His is currently admitted into the hospital for bleeding duodenal ulcer and influenza. He has been having a lot of stress associate with this. His pain initially started when he had eaten [employer] sandwich. He has a history of an umbilical hernia repair but denies any other surgical history. Believes he still has his gallbladder. He feels that the pain is worse with movement because he was walking when it first started. No relief with Tums. No known history of any peptic ulcer disease. Denies any black or blood in his stool. Not sure what his last bowel movement was. Chart review from yesterday's ER visit, patient had a largely normal CBC and very mildly elevated lipase as well as total bili (85 and 1.37 respectively). His AST and ALT were normal. CT of the abdomen and pelvis showed subtle fat stranding of the pancreatic head which could be related to acute pancreatitis. No other acute process was noted. Patient denies any alcohol use. [facility] Medical History Dizziness Chronic shortness of breath GERD (gastroesophageal reflux disease) Coronary artery disease Pulmonary embolism Restrictive lung disease Diabetes type 2, controlled COPD (chronic obstructive pulmonary disease) Home Medications ?Medication ?Instructions ?Recorded ?Last Taken ?Type apixaban 5 mg tablet (Eliquis) 5 mg PO BID BLOOD CLOTS 08/11/17 Unknown History atenolol 50 mg tablet 50 mg PO DAILY HEART 08/11/17 Unknown History atorvastatin 80 mg tablet 80 mg PO QHS CHOLESTEROL 08/11/17 Unknown History glipizide 5 mg tablet 10 mg PO BIDAC BLOOD SUGAR/DIABETES 08/11/17 Unknown History omeprazole 20 mg capsule,delayed 20 mg PO DAILY gerd 08/11/17 Unknown History release ropinirole 0.5 mg tablet (Requip) 0.5 mg PO QHS RESTLESS LEGS 08/11/17 Unknown History tamsulosin 0.4 mg capsule 0.4 mg PO QHS PROSTATE/URINATION 08/11/17 Unknown History loratadine 10 mg capsule 10 mg PO DAILY PRN Allergies 06/04/18 Unknown History saxagliptin 5 mg tablet (Onglyza) 2.5 mg PO DAILY 06/04/18 Unknown History ondansetron 4 mg disintegrating 4 mg PO Q8H PRN PRN Nausea #10 tabs 06/05/18 Unknown Rx tablet acetaminophen 325 mg tablet 325 mg PO Q6H PRN Pain 11/09/21 Unknown History escitalopram oxalate 5 mg tablet 5 mg PO DAILY 11/09/21 Unknown History ezetimibe 10 mg tablet 10 mg PO DAILY 11/09/21 Unknown History finasteride 5 mg tablet 5 mg PO DAILY 11/09/21 Unknown History fluticasone furoate 100 1 inh inhalation DAILY 11/09/21 Unknown History mcg-vilanterol 25 mcg/dose inhalation powder insulin glargine 100 unit/mL 42 unit subcut QPM 11/09/21 Unknown History subcutaneous solution nitroglycerin 0.4 mg sublingual 0.4 mg sublingual Q5M PRN Chest 11/09/21 Unknown History tablet Pain pantoprazole 20 mg tablet,delayed 20 mg PO DAILY 11/09/21 Unknown History release pioglitazone 15 mg tablet 15 mg PO DAILY 11/09/21 Unknown History semaglutide 1 mg/dose (4 mg/3 mL) 1 mg subcut QWEEK 11/09/21 Unknown History subcutaneous pen injector Allergy/AdvReac Type Severity Reaction Status Date / Time No Known Allergies Allergy Verified 10/10/24 04:57 Surgical History H/O adenoidectomy Hx of tonsillectomy H/O hernia repair Social History household members: spouse housing: house Smoking Status: Never smoker ROS ROS ED Constitutional Constitutional ED: Denies chills or fever(s) ENT ENT ED: Denies ear pain, rhinorrhea or sore throat Cardiovascular Cardiovascular: Denies chest pain Respiratory/Chest Respiratory/Chest: Denies cough or dyspnea Gastrointestinal Gastrointestinal: Reports abdominal pain, nausea and vomiting; Denies constipation, diarrhea or melena Genitourinary Genitourinary ED: Denies dysuria or hematuria Musculoskeletal Musculoskeletal: Denies arthralgias or myalgias Integumentary Denies rash Neurologic Neurologic: Denies weakness Hematologic/Lymphatic Hematologic/Lymphatic: Reports easy bleeding, easy bruising and other Details: On Eliquis EXAM Physical Exam Const Vital Signs: 10/10/24 04:57 10/10/24 06:57 Temperature 98.3 F Temperature Source Oral Pulse Rate 99 85 Respiratory Rate 17 16 Blood Pressure 146/99 H 157/75 H Blood Pressure Mean 114 102 Pulse Ox 98 95 Oxygen Delivery Method Room Air Room Air Positive well nourished and well developed General Appearance ED: well developed and NAD; Negative for pallor HEENT Reports moist mucous membranes Eyes PERRL Neck supple and no JVD Resp normal respiratory effort and clear to auscultation bilaterally Cardio regular rate, regular rhythm and no murmurs Cardio Narrative: 2+ radial DP pulses GI non-distended GI Narrative: Negative Ann sign but is tender in that area. No peritoneal signs. Auscultation: hypoactive bowel sounds Palpation: soft and tender epigastric and RUQ; Negative for guarding Back/Spine no CVA tenderness Extremity full ROM General Extremety ED: Negative for edema General Extremity: Negative for edema Neuro Sensorium / Orientation: alert Motor Exam: Negative for general weakness Psych mental status grossly normal and thought process normal Skin General Skin Exam: Negative for jaundice or pallor MDM MDM MDM Narrative Medical decision making narrative: Patient evaluated for recurrent/worsening epigastric/right upper quadrant abdominal pain. Was seen in the ER yesterday for the same complaint. States it never really got better. States he really has been able to eat or drink anything. Drinking water makes him feel worse and causes him to belch. Patient is given IV morphine and Zofran as well as small IV fluid bolus for symptoms in the emergency room. He does feel much improved and is resting comfortably. He has an acute leukocytosis with white blood cell count of 19.8 (Was 9.6 yesterday). Hemoglobin mildly uptrending at 13.4 and suspect this is slight hemoconcentration. No left shift appreciated. Lactate is normal. Total and direct bilirubin mildly uptrending however AST and ALT are normal. Lipase is now normal (was previously mildly elevated 85). Patient has CT his abdomen pelvis yesterday we will obtain a right upper quadrant ultrasound as I am concerned this could be cholecystitis versus choledocholithiasis versus ascending cholangitis. Patient be signed out to oncoming physician pending ultrasound results and surgical consult as well as final disposition. I anticipate given his worsening leukocytosis, age and continued pain patient will require admission. Lab Data Attestation: I reviewed the patient's lab results. Labs: Laboratory Results - last 24 hr 10/10/24 10/10/24 10/10/24 05:00 05:20 06:30 WBC 19.8 H RBC 4.39 L Hgb 13.4 Hct 38.3 L MCV 87.2 MCH 30.5 MCHC 35.0 RDW Std Deviation 43.0 RDW Coeff of Melany 13.5 Plt Count 187 MPV 10.0 Immature Gran % (Auto) 0.700 Neut % (Auto) 84.7 H Lymph % (Auto) 7.8 L [place] % (Auto) 6.4 Eos % (Auto) 0.2 Baso % (Auto) 0.2 Absolute Neuts (auto) 16.8 H Absolute Lymphs (auto) 1.54 Nucleated RBC % 0 Sodium 137 Potassium 3.6 Chloride 100 Carbon Dioxide 21.8 Anion Gap 15 BUN 14 Creatinine 0.97 Estim Creat Clear Calc 68.26 Est GFR (MDRD) Non-Af 78 BUN/Creatinine Ratio 14.0 Glucose 177 H Lactic Acid 1.3 Calcium 9.5 Total Bilirubin 1.85 H Direct Bilirubin 0.82 H AST 26 ALT 26 Alkaline Phosphatase 88 Total Protein 7.5 Albumin 4.2 Globulin 3.3 Lipase 26 Urine Color Yellow Urine Clarity Clear Urine pH 7.0 Ur Specific [place] 1.010 Urine Protein 15 H Urine Glucose (UA) 100 H Urine Ketones 15 H Urine Occult Blood Negative Urine Nitrite Negative Urine Bilirubin Negative Urine Urobilinogen Normal Ur Leukocyte Esterase 25 H Rhythm Strip Rhythm Strip: Sinus Rhythm Rate: 91 Ectopy: None EKG Initial EKG: Attestation: I personally reviewed and interpreted this EKG as follows: Interpretation: Sinus Rhythm Comments: Normal sinus rhythm rate of 91 bpm Right bundle branch block Minimal voltage criteria for LVH Normal ST segment Discharge Plan Triage Chief Complaint: Abd Pain ED Provider: Marquita Newman Dx/Rx/DC Orders Clinical Impression: Acute upper abdominal pain, Leukocytosis Prescriptions: No Action atorvastatin 80 MG tablet 80 mg PO QHS tamsulosin 0.4 MG capsule 0.4 mg PO QHS ropinirole [Requip] 0.5 MG tablet 0.5 mg PO QHS omeprazole 20 MG capsule 20 mg PO DAILY atenolol 50 MG tablet 50 mg PO DAILY glipizide 5 MG tablet 10 mg PO BIDAC Eliquis 5 MG tablet 5 mg PO BID Onglyza 5 MG tablet 2.5 mg PO DAILY loratadine 10 MG capsule 10 mg PO DAILY PRN (Reason: Allergies) ondansetron 4 MG tablet 4 mg PO Q8H PRN PRN (Reason: Nausea) Qty: 10 0RF pioglitazone 15 mg Tablet 15 mg PO DAILY acetaminophen 325 mg Tablet 325 mg PO Q6H PRN (Reason: Pain) insulin glargine 100 unit/mL Solution 42 unit SUBCUT QPM pantoprazole 20 mg Tablet,Delayed Release (Dr/Ec) 20 mg PO DAILY nitroglycerin 0.4 mg Tablet, Sublingual 0.4 mg SUBLINGUAL Q5M PRN (Reason: Chest Pain) finasteride 5 mg Tablet 5 mg PO DAILY ezetimibe 10 mg Tablet 10 mg PO DAILY escitalopram oxalate 5 mg Tablet 5 mg PO DAILY fluticasone furoate-vilanterol 100-25 mcg/dose Blister With Device 1 inh INHALATION DAILY semaglutide 1 mg/dose (4 mg/3 mL) Pen Injector 1 mg SUBCUT QWEEK Primary Care Provider: [facility] [facility]errals: [facility] [Primary Care Provider] - Print Language: Kiswahili
--- NOTE | 2024-10-10 05:48 | EKG12_ITS ---
Test Reason : ABD PAIN Blood Pressure : */* mmHG Vent. Rate : 91 BPM Atrial Rate : 91 BPM P-R Int : 170 ms QRS Dur : 140 ms QT Int : 424 ms P-R-T Axes : 33 -27 20 degrees QTcB Int : 521 ms Normal sinus rhythm Right bundle branch block Minimal voltage criteria for LVH, may be normal variant ( R in aVL ) Abnormal ECG Confirmed by MANI NOGUEIRA, BRAD ([id number]), graphics editor NATHALIE SYED ([id number]) on 10/14/2024 10:54:56 AM Referred By: Confirmed By: BRAD SINGLETON MD
[2024-10-10] MEDS: Ondansetron 4 MG/2 ML Vial IV ×2 (05:52→14:13)
[2024-10-10] MEDS: 0.9% Normal Saline (500mL Bag) 500 ML 999 ML IV (05:54)
[2024-10-10] MEDS: morphine 8 MG/ML Syringe 6 MG IV (05:54)
[2024-10-10 06:03] LABS: AST(SGOT) 26 U/L (<=37); Alanine Aminotransfer ALT/SGPT 26 U/L (<=46); Albumin, Serum 4.2 g/dL (3.4-4.8); Alkaline Phosphatase 88 U/L (40-129); Anion Gap 15 (5-15); BUN 14 mg/dL (4-19); Bilirubin, Direct 0.82 mg/dL (0.00-0.30); Calcium,Total 9.5 mg/dL (7.6-11.0); Carbon Dioxide 21.8 mmol/L (21.0-32.0); Chloride 100 mmol/L (98-108); Creatinine, Serum 0.97 mg/dL (0.70-1.20); EST Glomerular Filtration Rate 78 (>60); Estimated Creatinine Clearance 68.26 ml/min (50-250); Globulin 3.3 g/dL (2.2-4.2); Glucose 177 mg/dL (70-99); Lipase 26 U/L (13-75); Potassium 3.6 mmol/L (3.3-5.1); Protein, Total 7.5 g/dL (5.9-8.4); Sodium Level 137 mmol/L (133-145); Total Bilirubin 1.85 mg/dL (0.00-1.30)
[2024-10-10 06:05] LABS: Lactic Acid 1.3 mmol/L (0.0-2.0)
[2024-10-10 06:37] LABS: Mucous, Urine 0 SEEN /hpf (<or=2+)
[2024-10-10 06:48] LABS: Color, Urine Yellow (Yellow); Glucose, Dipstick 100 mg/dl (Normal); Ketone-Dipstick 15 mg/dl (Negative); Leukocyte Esterase-Dipstick 25 /ul (Negative); Nitrite-Dipstick Negative (Negative); Occult Blood-Urine Negative /ul (Negative); Protein-Dipstick 15 mg/dl (Negative); Urine Bilirubin Dipstick Negative (Negative); Urine Clarity Clear (Clear); Urine Urobilinogen Normal (Normal)
--- NOTE | 2024-10-10 06:48 | US_ITS ---
PROCEDURE: ABDOMEN LIMITED REASON FOR EXAM: PAIN, LEUKOCYTOSIS COMPARISON: None FINDINGS: Liver: Diffusely echogenic suggesting fatty infiltration. It measures 15.9 cm. Gallbladder: No stones, sludge, wall thickening or tenderness. Common bile duct: Normal measuring 5 mm.. Pancreas: Visualized portions are sonographically unremarkable. Visualized portions of the right kidney are unremarkable. No right upper quadrant ascites. US/Abdomen Limited IMPRESSION: Fatty infiltration of the liver. Reading Location: [id number]
[2024-10-10 07:55] LABS: Red Blood Cells-Urine 0 SEEN /hpf (0-5)
[2024-10-10 07:56] LABS: Renal Epithelial Cells 0-5 SEEN /hpf (0-5); Squamous Epithelial Cells - UA 0-5 SEEN /hpf (0-5); White Blood Cells 0-5 SEEN /hpf (0-5)
[2024-10-10 08:10] LABS: Bacteria 0 SEEN /hpf (None Seen)
--- NOTE | 2024-10-10 10:35 | CT_ITS ---
PROCEDURE: ABDOMEN/PELVIS WITH CONTRAST REASON FOR EXAM: ABDOMINAL PAIN Possible pancreatitis. TECHNIQUE: Abdomen and pelvis CT with intravenous contrast. Oral contrast was also used. IV CONTRAST: 100 cc of Isovue-300. COMPARISON: Comparison is made with prior study dated October 10, 2023. FINDINGS: Lung bases: Minimal degree of right linear basilar atelectasis. Liver: Diffuse fatty infiltration. Gallbladder: Unremarkable. Spleen: Unremarkable. Pancreas: There is enlargement of the head of the pancreas with increased markings in the surrounding peritoneal fat suggestive of acute pancreatitis. Punctate calcification is seen at that site suggestive of possible chronic pancreatitis. Thickening of the right anterior perirenal fascia. Adrenals: Unremarkable. Kidneys: Small subcentimeter bilateral renal cysts. Bladder: Unremarkable.. Prosthetic enlargement with prostatic calcifications. Reproductive Organs: Unremarkable. Bowel: Colonic diverticulosis without diverticulitis.. Prior anterior abdominal hernia repair with a mesh. Appendix: Normal. Lymph nodes: No suspicious lymph node enlargement. Vasculature: A filter is seen within the inferior vena cava.. Atherosclerotic calcification of the abdominal aorta. Peritoneum / Retroperitoneum: No ascites. No free air. Bones: Degenerative changes of the spine. CT/Abdomen/Pelvis WITH Contrast IMPRESSION: Findings suggestive of mild degree of acute pancreatitis involving the head of the pancreas with surrounding inflammatory changes and punctate calcification. Fatty infiltration of the liver. Cysts in both kidneys. Sigmoid diverticulosis. One or more dose reduction techniques were used (e.g., Automated exposure contr ol, adjustment of the mA and/or kV according to patient size, use of iterative reconstruction technique). Reading Location: [facility]
[2024-10-10] MEDS: Pantoprazole Sodium 80 MG in 0.9% Normal Saline (50mL Bag) 15 ML 420 MG IV BOLUS (11:17)
--- NOTE | 2024-10-10 11:39 | EX.PCM.CON.S ---
Assessment & Plan Assessment/Plan (1) Acute upper abdominal pain: (2) Leukocytosis: PLAN: Plan I have been consulted in conjunction with Dr. Aguilar. She will independently evaluate this patient. General surgery was consulted for possible gallbladder related illness. Patient's RUQ/abdominal u/s demonstrated fatty infiltration of the liver. No indication of cholelithiasis, pericholecystic fluid or gallbladder wall thickening. On u/s the pancreas appears normal. CT scan of the ab/pel with contrast was obtained demonstrating mild acute pancreatitis. Patient was further reviewed with Dr. Aguilar along with the patient's images. Patient's symptoms do not seem consistent with acute cholecystitis or biliary colic. Patient's imaging is showing mild pancreatitis of unknown etiology. Patient is on Ozempic for diabetes, unsure last time he injected the medication. At this time, we are not recommending a laparoscopic cholecystectomy with IOC. Recommend patient start a high dose PPI daily. Patient and his [id number] have had the opportunity to ask and have questions answered. No surgical intervention is being recommended at this time. Thank you for allowing us to participate in this patient's care. HPI Consult Data Date of Consult: 10/10/24 HPI Narrative Reason for Consultation: Upper abdominal pain HPI Narrative: MADAY IGLESIAS, is a 84 M who presents with 1 day history of abdominal pain. Patient is a very poor historian with a history of dementia. Patient's lpatrm-ps-nxl was present in the room and provided some of the history. Patient states his in hospitalized in room 109 for a GI bleed. He notes he was visiting her and went to leave. He states he was headed to the retail pharamcy when he suddenly developed upper abdominal pain radiating across his entire abdomen, whole body shakes and overall feeling bad. He felt the pain was related to indigestion. He denies the pain radiating into his back. He notes going to the ED. He had CT ab/pel which demonstrated no bowel obstruction, nonspecific stranding around the head of the pancreas. He was provided Ativan and Zofran in the ED which helped with his symptoms. Per the ED note, patient was noted to have early pancreatitis, however most of his symptoms were related to stress. His lipase was normal at 85 and T Bili 1.37. He was discharged to home and asked to return if his symptoms became worse. Patient noted last night at 8:30 pm his symptoms returned. He tried to lay down and woke up at midnight. Patient's eewktm-hs-dnl gave him 2 Tylenol, which helped slightly. BRADLEY noted that the patient was doubled over in the chair and belching. She brought him in to the ED. Patient notes he has felt lightheaded and dizzy. Patient's last meal was on Monday, where he had 2 [employer] roast beef sandwiches and a pop. When asked why the patient hasn't been eating, he stated this was because he doesn't remember. Patient does admit to short term memory loss. He recently had a circumcision at [facility] secondary to urinary retention 1 month ago. Patient is a diabetic and on Ozempic. 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 He also has a christiano filter in place. He is unsure when this was placed. Patient notes an abdominal incisional hernia repair, which was completed a few years ago. He denies having pain like this previously. Patient's S-I-L states the patient's was diagnosed with Influenza A. Patient states he has not shown any symptoms. He denies being around any other sick contacts. He denies having a personal history of gastric ulcer. He notes he has his previous scopes completed at [facility]. Abdominal u/s demonstrating fatty infiltration of the liver. No stones, sludge, wall thickening at the gallbladder site. Pancreas is visualizing unremarkable. CT scan of ab/pel with contrast demonstrated mild degree of acute pancreatitis involving the head of the pancreas with surrounding inflammatory changes. Punctate calcification seen at the pancreas suggestive of possible chronic pancreatitis. Fatty liver. Cysts in both kidneys. Sigmoid diverticulosis. WBC 19.8, Hgb 13.4, Hct 38.3, Plt 187. T. Bili 1.85, AST 26, ALT 26, Alk Phos 88. Lipase 26 PFSH Medical History Dizziness Chronic shortness of breath GERD (gastroesophageal reflux disease) Coronary artery disease Pulmonary embolism Restrictive lung disease Diabetes type 2, controlled COPD (chronic obstructive pulmonary disease) Home Medications ?Medication ?Instructions ?Recorded ?Last Taken ?Type apixaban 5 mg tablet (Eliquis) 5 mg PO BID BLOOD CLOTS 08/11/17 Unknown History atorvastatin 80 mg tablet 80 mg PO QHS CHOLESTEROL 08/11/17 Unknown History tamsulosin 0.4 mg capsule 0.4 mg PO QHS PROSTATE/URINATION 08/11/17 Unknown History loratadine 10 mg capsule 10 mg PO DAILY PRN Allergies 06/04/18 Unknown History ondansetron 4 mg disintegrating 4 mg PO Q8H PRN PRN Nausea #10 tabs 06/05/18 Unknown Rx tablet acetaminophen 325 mg tablet 325 mg PO Q6H PRN Pain 11/09/21 Unknown History ezetimibe 10 mg tablet 10 mg PO DAILY 11/09/21 Unknown History fluticasone furoate 100 1 inh inhalation DAILY 11/09/21 Unknown History mcg-vilanterol 25 mcg/dose inhalation powder insulin glargine 100 unit/mL 55 unit subcut QPM 11/09/21 Unknown History subcutaneous solution nitroglycerin 0.4 mg sublingual 0.4 mg sublingual Q5M PRN Chest 11/09/21 Unknown History tablet Pain pantoprazole 20 mg tablet,delayed 20 mg PO DAILY 11/09/21 Unknown History release semaglutide 1 mg/dose (4 mg/3 mL) 0.25 mg subcut QWEEK 11/09/21 Unknown History subcutaneous pen injector Allergy/AdvReac Type Severity Reaction Status Date / Time No Known Allergies Allergy Verified 10/10/24 04:57 Surgical History H/O adenoidectomy Hx of tonsillectomy H/O hernia repair Social History household members: spouse housing: house Smoking Status: Never smoker ROS Constitutional Constitutional: Reports fatigue, poor appetite and weakness Eyes Eyes: Reports systems reviewed and no addt'l complaints, except as documented ENT HEENT: Reports systems reviewed and no addt'l complaints, except as documented Cardiovascular Cardiovascular: Reports systems reviewed and no addt'l complaints, except as documented Respiratory/Chest Respiratory/Chest: Reports systems reviewed and no addt'l complaints, except as documented Gastrointestinal Gastrointestinal: Reports nausea Genitourinary Genitourinary: Reports systems reviewed and no addt'l complaints, except as documented Musculoskeletal Musculoskeletal: Reports systems reviewed and no addt'l complaints, except as documented Integumentary Integumentary: Reports systems reviewed and no addt'l complaints, except as documented Neurologic Neurologic: Reports systems reviewed and no addt'l complaints, except as documented Psychiatric Psychiatric: Reports systems reviewed and no addt'l complaints, except as documented Endocrine Endocrinology: Reports systems reviewed and no addt'l complaints, except as documented Hematologic/Lymphatic Hematologic/Lymphatic: Reports systems reviewed and no addt'l complaints, except as documented Allergic/Immunologic Allergic/Immunologic: Reports systems reviewed and no addt'l complaints, except as documented Physical Exam Const alert and oriented x3 General Appearance: disheveled, lethargic and ill appearing HEENT normocephalic and head/scalp atraumatic Eyes PERRL Neck full ROM Resp normal respiratory effort and clear to auscultation bilaterally Cardio regular rate and regular rhythm GI GI Narrative: Abdomen- soft, guarding and tenderness to the upper abdomen. Hypoactive bowel sounds no CVA tenderness Back/Spine no CVA tenderness Extremity General Extremity: edema bilateral lower extremity Details: mild Skin no rashes or lesions noted Neuro no focal motor deficits and no sensory deficits noted Psych Appearance: disheveled Speech: slow Mood & Affect: labile affect Thought Process: confused Lab / Micro Data 10/10/24 05:00 10/10/24 05:00 Labs: Laboratory Results - last 24 hr 10/10/24 05:00: WBC 19.8 H, RBC 4.39 L, Hgb 13.4, Hct 38.3 L, MCV 87.2, MCH 30.5, MCHC 35.0, RDW Std Deviation 43.0, RDW Coeff of Melany 13.5, Plt Count 187, MPV 10.0, Immature Gran % (Auto) 0.700, Neut % (Auto) 84.7 H, Lymph % (Auto) 7.8 L, [place] % (Auto) 6.4, Eos % (Auto) 0.2, Baso % (Auto) 0.2, Absolute Neuts (auto) 16.8 H, Absolute Lymphs (auto) 1.54, Nucleated RBC % 0, Sodium 137, Potassium 3.6, Chloride 100, Carbon Dioxide 21.8, Anion Gap 15, BUN 14, Creatinine 0.97, Estim Creat Clear Calc 68.26, Est GFR (MDRD) Non-Af 78, BUN/Creatinine Ratio 14.0, Glucose 177 H, Calcium 9.5, Total Bilirubin 1.85 H, Direct Bilirubin 0.82 H, AST 26, ALT 26, Alkaline Phosphatase 88, Total Protein 7.5, Albumin 4.2, Globulin 3.3, Lipase 26 10/10/24 05:20: Lactic Acid 1.3 10/10/24 06:30: Urine Color Yellow, Urine Clarity Clear, Urine pH 7.0, Ur Specific [place] 1.010, Urine Protein 15 H, Urine Glucose (UA) 100 H, Urine Ketones 15 H, Urine Occult Blood Negative, Urine Nitrite Negative, Urine Bilirubin Negative, Urine Urobilinogen Normal, Ur Leukocyte Esterase 25 H, Urine RBC 0 SEEN, Urine WBC 0-5 SEEN, Ur Squamous Epith Cells 0-5 SEEN, Ur Renal Epithelial Cell 0-5 SEEN, Urine Bacteria 0 SEEN, Urine Mucus 0 SEEN Rhythm Strip Rhythm Strip: Sinus Rhythm Rate: 91 Ectopy: None Imaging Radiology Impression Abdomen Ultrasound 10/10/24 06:48 IMPRESSION: Fatty infiltration of the liver. Reading Location: [facility] Abdomen/Pelvis CT 10/10/24 10:35 IMPRESSION: Findings suggestive of mild degree of acute pancreatitis involving the head of the pancreas with surrounding inflammatory changes and punctate calcification. Fatty infiltration of the liver. Cysts in both kidneys. Sigmoid diverticulosis. One or more dose reduction techniques were used (e.g., Automated exposure control, adjustment of the mA and/or kV according to patient size, use of iterative reconstruction technique). Reading Location: [facility] Charges/Coding Visit Charges Inpatient E&M: 61342 Init Hosp L2
--- NOTE | 2024-10-10 11:55 | ED.RN ---
Patient ambulated to bathroom.
[2024-10-10] MEDS: Morphine 4 MG/ML Syringe IV (14:13)
[2024-10-10] MEDS: 0.9% Normal Saline (1000mL) 1,000 ML 150 ML IV ×2 (15:37→22:20)
[2024-10-10] MEDS: 0.9% Saline Lock 10 ML Syringe IV (15:37)
[2024-10-10] MEDS: Morphine 2 MG/ML Syringe IV ×2 (15:38→21:57)
--- NOTE | 2024-10-10 15:51 | PCM.HP.STD ---
HPI - General General Date of Admission: 10/10/24 Date of Service: 10/10/24 Chief Complaint: Mid abdominal pain HPI Narrative MADAY IGLESIAS, is a 84 M who presents to the emergency room at [facility] with complaints of mid abdominal pain which started approximately 3 days ago. Patient is a poor informant due to underlying dementia which is not severe however. Patient denies any nausea and vomiting, he was seen in the emergency room on 10/09/2024, underwent imaging studies which showed evidence of pancreatitis, his lipase at that time was slightly elevated. He was sent home but returned the following morning with complaints of increased abdominal pain. Workup in the emergency room included a CBC which showed an elevated white blood cell count at 19.8, chemistry profile was remarkable for a glucose of 177, bilirubin was elevated at 1.85, and lipase was 26. Urinalysis was unremarkable. Abdomen and pelvic CT was performed which showed findings suggestive of mild degree of acute pancreatitis involving the head of the pancreas with surrounding inflammatory changes and punctate calcification. There was also noted to be fatty infiltration of the liver and cyst in both kidneys. Abdominal ultrasound showed fatty infiltration of the liver, there were no gallbladder stones or sludge or gallbladder wall thickening or tenderness. Common bile duct was normal. The ER physician contacted general surgery, they did not feel the patient needed surgical intervention and requested that the hospitalist service admit the patient and they would participate in his care. Patient was admitted to [place] [id number] for acute pancreatitis, he will be given IV fluids, he will be on a clear liquid diet, and be given IV narcotics. [facility] Medical History Dizziness Chronic shortness of breath GERD (gastroesophageal reflux disease) Coronary artery disease Pulmonary embolism Restrictive lung disease Diabetes type 2, controlled COPD (chronic obstructive pulmonary disease) Home Medications ?Medication ?Instructions ?Recorded ?Last Taken ?Type apixaban 5 mg tablet (Eliquis) 5 mg PO BID BLOOD CLOTS 08/11/17 Unknown History atorvastatin 80 mg tablet 80 mg PO QHS CHOLESTEROL 08/11/17 Unknown History tamsulosin 0.4 mg capsule 0.4 mg PO QHS PROSTATE/URINATION 08/11/17 Unknown History loratadine 10 mg capsule 10 mg PO DAILY PRN Allergies 06/04/18 Unknown History ondansetron 4 mg disintegrating 4 mg PO Q8H PRN PRN Nausea #10 tabs 06/05/18 Unknown Rx tablet acetaminophen 325 mg tablet 325 mg PO Q6H PRN Pain 11/09/21 Unknown History ezetimibe 10 mg tablet 10 mg PO DAILY 11/09/21 Unknown History fluticasone furoate 100 1 inh inhalation DAILY 11/09/21 Unknown History mcg-vilanterol 25 mcg/dose inhalation powder insulin glargine 100 unit/mL 55 unit subcut QPM 11/09/21 Unknown History subcutaneous solution nitroglycerin 0.4 mg sublingual 0.4 mg sublingual Q5M PRN Chest 11/09/21 Unknown History tablet Pain pantoprazole 20 mg tablet,delayed 20 mg PO DAILY 11/09/21 Unknown History release semaglutide 1 mg/dose (4 mg/3 mL) 0.25 mg subcut QWEEK 11/09/21 Unknown History subcutaneous pen injector Allergy/AdvReac Type Severity Reaction Status Date / Time No Known Allergies Allergy Verified 10/10/24 04:57 Surgical History H/O adenoidectomy Hx of tonsillectomy H/O hernia repair Social History household members: spouse housing: house Smoking Status: Never smoker ROS ROS Narrative Complete review of systems was unobtainable due to the patient's mild dementia, he does answer some questions appropriately however. Vital Signs Vital Signs Vital Signs: 10/10/24 04:57 10/10/24 06:57 10/10/24 08:37 Temperature 98.3 F Temperature Source Oral Pulse Rate 99 85 88 Respiratory Rate 17 16 16 Blood Pressure 146/99 H 157/75 H 168/89 H Blood Pressure Mean 114 102 115 Pulse Ox 98 95 97 Oxygen Delivery Method Room Air Room Air Room Air 10/10/24 10:22 10/10/24 12:00 10/10/24 12:52 Temperature 98.3 F Temperature Source Pulse Rate 94 88 85 Respiratory Rate 17 16 16 Blood Pressure 142/63 H 157/84 H 134/58 H Blood Pressure Mean 89 108 83 Pulse Ox 98 98 98 Oxygen Delivery Method Room Air Room Air 10/10/24 12:53 10/10/24 14:01 Temperature 98.3 F 98.3 F Temperature Source Oral Oral Pulse Rate 85 88 Respiratory Rate 16 16 Blood Pressure 134/58 H 165/86 H Blood Pressure Mean 83 112 Pulse Ox 98 98 Oxygen Delivery Method Room Air Room Air Weight Weight: 89.3 kg Body Mass Index (BMI) 25.2 Physical Exam Const alert, no apparent distress, average body habitus and healthy appearing General Appearance: cooperative, well kempt and well developed Orientation / Consciousness: awake, oriented to person and oriented to place HEENT normocephalic, head/scalp atraumatic, hearing grossly normal bilaterally and moist oral mucous membranes Eyes PERRL, EOMs intact bilaterally and conjunctivae normal Neck supple, no JVD, thyroid normal and no carotid bruits General: trachea midline Resp normal respiratory effort, no retractions, no use of accessory muscles and clear to auscultation bilaterally Auscultation: Negative for rales, rhonchi or wheezes Cardio regular rate, regular rhythm, S1 normal heart sound, S2 normal heart sound, no murmurs, no rub and no gallops GI normal to inspection, nondistended, normoactive bowel sounds and non-tender GI Narrative: Abdomen is nondistended, bowel sounds are diminished in all 4 quadrants, there is tenderness to palpation in the right upper quadrant and the upper mid abdominal area. No rebound abdominal tenderness is noted Extremity no clubbing, cyanosis or edema Skin no rashes or lesions noted General Skin Exam: no breakdown Neuro CN's II-XII intact bilaterally, no focal motor deficits and no sensory deficits noted Neuro Narrative: Patient exhibits mild cognitive impairment Sensorium / Orientation: awake, alert, oriented to person and oriented to place Speech: speech normal Psych Psych Narrative: Patient exhibits mild cognitive impairment Results Lab / Micro Data 10/10/24 05:00 10/10/24 05:00 Labs: Laboratory Results - last 24 hr 10/10/24 05:00: WBC 19.8 H, RBC 4.39 L, Hgb 13.4, Hct 38.3 L, MCV 87.2, MCH 30.5, MCHC 35.0, RDW Std Deviation 43.0, RDW Coeff of Melany 13.5, Plt Count 187, MPV 10.0, Immature Gran % (Auto) 0.700, Neut % (Auto) 84.7 H, Lymph % (Auto) 7.8 L, [place] % (Auto) 6.4, Eos % (Auto) 0.2, Baso % (Auto) 0.2, Absolute Neuts (auto) 16.8 H, Absolute Lymphs (auto) 1.54, Nucleated RBC % 0, Sodium 137, Potassium 3.6, Chloride 100, Carbon Dioxide 21.8, Anion Gap 15, BUN 14, Creatinine 0.97, Estim Creat Clear Calc 68.26, Est GFR (MDRD) Non-Af 78, BUN/Creatinine Ratio 14.0, Glucose 177 H, Calcium 9.5, Total Bilirubin 1.85 H, Direct Bilirubin 0.82 H, AST 26, ALT 26, Alkaline Phosphatase 88, Total Protein 7.5, Albumin 4.2, Globulin 3.3, Lipase 26 10/10/24 05:20: Lactic Acid 1.3 10/10/24 06:30: Urine Color Yellow, Urine Clarity Clear, Urine pH 7.0, Ur Specific [place] 1.010, Urine Protein 15 H, Urine Glucose (UA) 100 H, Urine Ketones 15 H, Urine Occult Blood Negative, Urine Nitrite Negative, Urine Bilirubin Negative, Urine Urobilinogen Normal, Ur Leukocyte Esterase 25 H, Urine RBC 0 SEEN, Urine WBC 0-5 SEEN, Ur Squamous Epith Cells 0-5 SEEN, Ur Renal Epithelial Cell 0-5 SEEN, Urine Bacteria 0 SEEN, Urine Mucus 0 SEEN Rhythm Strip Rhythm Strip: Sinus Rhythm Rate: 91 Ectopy: None Imaging Radiology Impression Abdomen Ultrasound 10/10/24 06:48 IMPRESSION: Fatty infiltration of the liver. Reading Location: [facility] Abdomen/Pelvis CT 10/10/24 10:35 IMPRESSION: Findings suggestive of mild degree of acute pancreatitis involving the head of the pancreas with surrounding inflammatory changes and punctate calcification. Fatty infiltration of the liver. Cysts in both kidneys. Sigmoid diverticulosis. One or more dose reduction techniques were used (e.g., Automated exposure control, adjustment of the mA and/or kV according to patient size, use of iterative reconstruction technique). Reading Location: [id number] Assessment & Plan Assessment/Plan (1) Pancreatitis: PLAN: Plan 1. Acute pancreatitis-secondary to Ozempic usage-patient was admitted to [facility], he will be given IV fluids and IV analgesics, general surgery is participating in his care. #2 leukocytosis-etiology unclear, CBC will be repeated tomorrow #3 type 2 diabetes-patient's blood sugars will be monitored via Accu-Cheks, sliding scale insulin will be administered as necessary #4 mild/moderate dementia-complicates care, management, recovery, and prognosis #5 chronic use of oral anticoagulant-patient uses Eliquis chronically due to previous history of VTE, this will be given to the patient while he is in the hospital #6 hyperlipidemia-patient is on atorvastatin and Zetia #7 BPH-patient is on Flomax #8 fatty liver-complicates care, management, recovery, and prognosis Total clinical time spent by myself addressing the patient's medical issues, reviewing all of his data, and collaborating with patient's care team: 75-minute
[2024-10-10] MEDS: Insulin Lispro 100 UNIT/ML INSULN.PEN SC (18:42)
[2024-10-10 19:08] LABS: Bedside Glucose 166 mg/dL (74-106)
[2024-10-10] MEDS: Atorvastatin Calcium 80 MG Tablet PO (20:37)
[2024-10-10] MEDS: APIXABAN 5 MG TABLET PO (20:37)
[2024-10-10] MEDS: Tamsulosin HCl 0.4 MG Capsule PO (20:37)
[2024-10-11 00:14] LABS: Bedside Glucose 148 mg/dL (74-106)
[2024-10-11 01:23] VITALS: BP 143/52; PULSE 75; RESP 16; TEMP 36.4; O2SAT 98
[2024-10-11 05:10] VITALS: BP 149/83; PULSE 84; RESP 16; TEMP 36.3; O2SAT 97
[2024-10-11] MEDS: Insulin Lispro 100 UNIT/ML INSULN.PEN SC (05:26)
[2024-10-11 06:36] LABS: Absolute Neutrophil Count 8.8 X10^3/uL (2.0-7.7); Basophil# 0.03 X10^3/uL; Basophil% 0.3 % (0-1); Eosinophil# 0.13 X10^3/uL; Eosinophils% 1.2 % (0-5); Hematocrit 31.7 % (40-54); Hemoglobin 11.1 g/dL (13.0-16.5); Lymphocyte % 11.8 % (19-41); Mean Corpuscular Volume 88.5 fL (80-94); Mean Platelet Vol. 9.4 fl (6.2-12.0); Monocyte# 0.68 X10^3/uL; Monocyte% 6.2 % (0-10); NRBC Flagged by Analyzer 0 % (0-5); Neutrophil # 8.81 X10^3/uL (2.7-7.7); Neutrophil % 80.2 % (47-70); Platelet Count 149 K/mm3 (150-450); RBC Distribution Width CV 13.4 % (11.6-14.6); RBC Distribution Width SD 43.7 fl (35.1-43.9); Red Blood Count 3.58 M/mm3 (4.6-6.2)
[2024-10-11 06:39] LABS: Bedside Glucose 158 mg/dL (74-106)
[2024-10-11] MEDS: Morphine 4 MG/ML Syringe IV ×3 (08:07→19:34)
[2024-10-11] MEDS: 0.9% Saline Lock 10 ML Syringe IV (08:07)
[2024-10-11 08:20] VITALS: BP 172/87; PULSE 86; RESP 16; TEMP 36.4; O2SAT 97
[2024-10-11 08:22] LABS: ALB/GLOB Ratio 1.2 RATIO (0.9-2.4); AST(SGOT) 20 U/L (<=37); Alanine Aminotransfer ALT/SGPT 17 U/L (<=46); Albumin, Serum 3.3 g/dL (3.4-4.8); Alkaline Phosphatase 64 U/L (40-129); Anion Gap 10 (5-15); BUN 8 mg/dL (4-19); BUN/Creat Ratio 9.4 RATIO (10-20); Calcium,Total 8.5 mg/dL (7.6-11.0); Carbon Dioxide 23.6 mmol/L (21.0-32.0); Chloride 105 mmol/L (98-108); Creatinine, Serum 0.86 mg/dL (0.70-1.20); EST Glomerular Filtration Rate 86 (>60); Globulin 2.8 g/dL (2.2-4.2); Glucose 142 mg/dL (70-99); Potassium 3.9 mmol/L (3.3-5.1); Protein, Total 6.1 g/dL (5.9-8.4); Sodium Level 138 mmol/L (133-145); Total Bilirubin 1.73 mg/dL (0.00-1.30)
[2024-10-11] MEDS: Pantoprazole Sodium 20 MG Tablet PO (08:24)
[2024-10-11] MEDS: Ezetimibe 10 MG Tablet PO (08:24)
[2024-10-11] MEDS: APIXABAN 5 MG TABLET PO ×2 (08:24→21:43)
--- NOTE | 2024-10-11 11:27 | PN_ITS ---
Subjective Subjective Patient seen and examined. He complained of abdominal pain and nausea. He is on clear liquid diet but says he has not been able to tolerated very well due to the pain. Review of systems otherwise negative. Objective Data Objective Data Vital Signs: Vital Signs Temp Pulse Resp BP Pulse Ox O2 Del Method O2 Flow Rate 97.6 F L 86 16 172/87 H 97 Room Air 2 10/11/24 08:20 10/11/24 08:20 10/11/24 08:20 10/11/24 08:20 10/11/24 08:20 10/11/24 08:27 10/11/24 05:10 Oxygen Flow Rate (L/min) 2 Oxygen Delivery Method Room Air Weight: 196 lb 13.965 oz Body Mass Index (BMI) 25.2 Intake & Output: Intake and Output for Last 24 Hours 10/09/24 10/10/24 10/11/24 23:59 23:59 23:59 Intake Total 1735 / 1735 1200 / 1200 Balance 1735 / 1735 1200 / 1200 Lab / Micro Data 10/11/24 06:18 10/11/24 06:18 Labs: Laboratory Results - last 24 hr 10/10/24 18:38: POC Glucose 166 H 10/10/24 23:54: POC Glucose 148 H 10/11/24 05:25: POC Glucose 158 H 10/11/24 06:18: WBC 11.0, RBC 3.58 L, Hgb 11.1 L, Hct 31.7 L, MCV 88.5, MCH 31.0, MCHC 35.0, RDW Std Deviation 43.7, RDW Coeff of Melany 13.4, Plt Count 149 L, MPV 9.4, Immature Gran % (Auto) 0.300, Neut % (Auto) 80.2 H, Lymph % (Auto) 11.8 L, [place] % (Auto) 6.2, Eos % (Auto) 1.2, Baso % (Auto) 0.3, Absolute Neuts (auto) 8.8 H, Absolute Lymphs (auto) 1.30, Nucleated RBC % 0, Sodium 138, Potassium 3.9, Chloride 105, Carbon Dioxide 23.6, Anion Gap 10, BUN 8, Creatinine 0.86, Estim Creat Clear Calc 77.00, Est GFR (MDRD) Non-Af 86, BUN/Creatinine Ratio 9.4 L, Glucose 142 H, Calcium 8.5, Total Bilirubin 1.73 H, AST 20, ALT 17, Alkaline Phosphatase 64, Total Protein 6.1, Albumin 3.3 L, Globulin 2.8, Albumin/Globulin Ratio 1.2 Rhythm Strip Rhythm Strip: Sinus Rhythm Rate: 91 Ectopy: None Physical Exam Const alert and oriented x3 Constitutional Narrative: looks uncomfortable due to pain HEENT normocephalic, head/scalp atraumatic, moist oral mucous membranes and oropharynx normal Eyes PERRL and EOMs intact bilaterally Lymph Lymphatic: no lymphadenopathy noted and no lymphedema noted Resp normal respiratory effort, normal air movement and clear to auscultation bilaterally Cardio regular rate, regular rhythm, S1 normal heart sound, S2 normal heart sound and no murmurs GI normal to inspection, nondistended, normoactive bowel sounds and soft to palpation GI Narrative: moderate epigastric tenderness, no guarding or rebound tenderness. Extremity normal capillary refill, no clubbing, cyanosis or edema and no calf tenderness General Extremity: no tenderness to palpation of joints or extremities Skin General Skin Exam: no breakdown Neuro CN's II-XII intact bilaterally, no focal motor deficits and no sensory deficits noted Motor Exam: strength 5/5 throughout and general weakness Psych thought process normal and cooperative Appearance: appropriate Assessment & Plan Assessment/Plan (1) Pancreatitis: PLAN: Plan #Acute pancreatitis * admitted with a complaint of abdominal pain. * CT abdomen showed evidence of acute pancreatitis. Thought to be due to Ozempic use. * Patient was on clear liquids but has not been tolerating because of the abdominal pain. Keep patient n.p.o. and hydrate aggressively with IV fluids. On IV morphine as needed for pain #Type 2 diabetes mellitus: * Ozempic will need to be discontinued due to the pancreatitis. * On insulin sliding scale. * Accu-Cheks ACHS. * lantus on hold #Leukocytosis: Resolved. WBC is down to 11. Was likely reactive. #Elevated blood pressure: * Blood pressure at 172/87 this morning. Patient on a known hypertensive. * The pain may be contributing to it. * Placed on IV hydralazine as needed. * If remains elevated will start on oral BP medication. #Elevated bilirubin: * Bilirubin is 1.73. * Was 1.85 on admission. * AST and ALT as well as ALP are within normal limits. * CT of the abdomen showed mild degree of acute pancreatitis involving the head of the pancreas with surrounding inflammatory changes and punctate calcification as well as fatty infiltration of the liver, cyst in both kidneys and sigmoid diverticulosis. * Abdominal ultrasound showed diffusely echogenic liver and decayed and fatty infiltration and no stones, sludge, wall thickening or tenderness of the gallbladder and common bile duct was normal. * This is therefore likely due to fatty liver. * Follow-up with PCP and gastroenterology on outpatient basis. 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 #Hyperlipidemia: On Zetia and atorvastatin #BPH: On Flomax DVT prophylaxis: Already on Eliquis as stated above. Charges/Coding Visit Charges Inpatient E&M: 52256 Subs Hosp L2
[2024-10-11 11:57] LABS: Bedside Glucose 183 mg/dL (74-106)
[2024-10-11] MEDS: 0.9% Normal Saline (1000mL) 1,000 ML 125 ML IV ×2 (12:03→20:25)
--- NOTE | 2024-10-11 14:40 | CASEMGMT ---
Addendum entered by Tiffany Angel 10/11/24 16:17: Spoke with Shital at [facility], they will not have an answer until Monday if they can accept pt for services. Addendum entered by Tiffany Angel 10/11/24 15:25: Updated by dc medical assistant float that pt deferred to his and she chose [facility]. TC to [facility], left referral via . Original Note: RN CM into pt room, pt present at bedside as well as her two sisters. Pt agreeable to discussion with them present. Pt reports he is typically indep at home. He lives with his in a single story home with 2 steps to enter. Pt has a cane, walker, w/c, shower chair, toilet rails at home. Pt does not use his CPAP. Pt follows with Martha GUERIN, Dr. Mae. Pt reports he would not prefer to trf at this time. [facility] aware [facility]. Pt is interested in some [facility] for SN and PT. He is aware that the dc medical assistant float will bring him a list to select his preferences. Pt and family deny further needs at this time.
--- NOTE | 2024-10-11 14:57 | CASEMGMT ---
Discharge Planning A list of?HH providers including quality and resource use data and consistent with the patient's preferred geographic region, medical needs, and insurance network was created in [facility].? This list was provided to the pt. Yocasta Gill, Discharge Planning Ass
--- NOTE | 2024-10-11 15:31 | CASEMGMT ---
Spoke with patients to complete HARRIS form. HARRIS form explained and understanding voiced. Original form placed in pt?s chart and copy placed in pts room. Yocasta Gill, Discharge Planning Asst
[2024-10-11 15:33] VITALS: BP 174/83; PULSE 86; RESP 16; TEMP 36.2; O2SAT 98
[2024-10-11 19:17] LABS: Bedside Glucose 115 mg/dL (74-106)
[2024-10-11] MEDS: Atorvastatin Calcium 80 MG Tablet PO (21:43)
[2024-10-11] MEDS: Tamsulosin HCl 0.4 MG Capsule PO (21:43)
[2024-10-11 21:44] VITALS: BP 142/71; PULSE 77; RESP 18; TEMP 36.6; O2SAT 95
[2024-10-12] MEDS: 0.9% Normal Saline (1000mL) 1,000 ML 125 ML IV (03:04)
[2024-10-12 03:05] VITALS: BP 127/56; PULSE 74; RESP 18; TEMP 36.6; O2SAT 98
[2024-10-12 03:27] LABS: Bedside Glucose 105 mg/dL (74-106)
[2024-10-12 06:50] LABS: Bedside Glucose 118 mg/dL (74-106)
[2024-10-12 07:19] LABS: Absolute Lymphocyte Count 1.25 X10^3/uL (0.83-4.51); Absolute Neutrophil Count 5.3 X10^3/uL (2.0-7.7); Basophil# 0.03 X10^3/uL; Basophil% 0.4 % (0-1); Eosinophil# 0.28 X10^3/uL; Eosinophils% 3.8 % (0-5); Hematocrit 31.3 % (40-54); Hemoglobin 10.9 g/dL (13.0-16.5); Lymphocyte # 1.25 X10^3/ul (0.83-4.51); Lymphocyte % 16.9 % (19-41); Mean Corp Hgb Conc 34.8 g/dL (32-36); Mean Corpuscular Hgb 30.8 pg (27.0-32.0); Mean Corpuscular Volume 88.4 fL (80-94); Mean Platelet Vol. 9.6 fl (6.2-12.0); Monocyte# 0.49 X10^3/uL; Monocyte% 6.6 % (0-10); NRBC Flagged by Analyzer 0 % (0-5); Neutrophil # 5.32 X10^3/uL (2.7-7.7); Platelet Count 151 K/mm3 (150-450); RBC Distribution Width CV 13.3 % (11.6-14.6); RBC Distribution Width SD 43.1 fl (35.1-43.9); Red Blood Count 3.54 M/mm3 (4.6-6.2); White Blood Count 7.4 K/mm3 (4.4-11.0)
[2024-10-12] MEDS: Morphine 4 MG/ML Syringe IV ×2 (08:10→16:15)
[2024-10-12] MEDS: Pantoprazole Sodium 20 MG Tablet PO (08:18)
[2024-10-12] MEDS: Ezetimibe 10 MG Tablet PO (08:18)
[2024-10-12] MEDS: APIXABAN 5 MG TABLET PO ×2 (08:18→21:12)
[2024-10-12 08:46] LABS: Anion Gap 11 (5-15); BUN 11 mg/dL (4-19); BUN/Creat Ratio 13.3 RATIO (10-20); Calcium,Total 8.3 mg/dL (7.6-11.0); Carbon Dioxide 22.6 mmol/L (21.0-32.0); Chloride 105 mmol/L (98-108); Creatinine, Serum 0.79 mg/dL (0.70-1.20); EST Glomerular Filtration Rate 89 (>60); Estimated Creatinine Clearance 82.77 ml/min (50-250); Glucose 113 mg/dL (70-99); Potassium 3.5 mmol/L (3.3-5.1); Sodium Level 139 mmol/L (133-145)
[2024-10-12 08:52] VITALS: BP 127/52; PULSE 82; RESP 16; TEMP 36.3; O2SAT 98
[2024-10-12] MEDS: Insulin Lispro 100 UNIT/ML INSULN.PEN SC ×2 (11:26→16:21)
[2024-10-12 11:45] LABS: Bedside Glucose 172 mg/dL (74-106)
[2024-10-12 11:49] VITALS: BP 126/77; PULSE 80; RESP 16; TEMP 36.4; O2SAT 96
--- NOTE | 2024-10-12 11:50 | PN_ITS ---
Subjective Subjective Patient seen and examined. He still having abdominal pain but is a bit better relative to yesterday. He denies any nausea or vomiting. Review of systems otherwise negative. He has remained hemodynamically stable. Objective Data Objective Data Vital Signs: Vital Signs Temp Pulse Resp BP Pulse Ox O2 Del Method O2 Flow Rate 97.6 F L 80 16 126/77 H 96 Room Air 2 10/12/24 11:49 10/12/24 11:49 10/12/24 11:49 10/12/24 11:49 10/12/24 11:49 10/12/24 11:49 10/12/24 03:05 Oxygen Flow Rate (L/min) 2 Oxygen Delivery Method Room Air Weight: 196 lb 13.965 oz Body Mass Index (BMI) 25.2 Intake & Output: Intake and Output for Last 24 Hours 10/10/24 10/11/24 10/12/24 23:59 23:59 23:59 Intake Total 1735 / 1735 2200 / 2200 1931.25 / 193.25 Balance 1735 / 1735 2200 / 2200 1931. / 1930.25 Lab / Micro Data 10/12/24 06:57 10/12/24 06:57 Labs: Laboratory Results - last 24 hr 10/11/24 11:37: POC Glucose 183 H 10/11/24 18:58: POC Glucose 115 H 10/12/24 03:03: POC Glucose 105 10/12/24 06:32: POC Glucose 118 H 10/12/24 06:57: WBC 7.4, RBC 3.54 L, Hgb 10.9 L, Hct 31.3 L, MCV 88.4, MCH 30.8, MCHC 34.8, RDW Std Deviation 43.1, RDW Coeff of Melany 13.3, Plt Count 151, MPV 9.6, Immature Gran % (Auto) 0.300, Neut % (Auto) 72.0 H, Lymph % (Auto) 16.9 L, [place] % (Auto) 6.6, Eos % (Auto) 3.8, Baso % (Auto) 0.4, Absolute Neuts (auto) 5.3, Absolute Lymphs (auto) 1.25, Nucleated RBC % 0, Sodium 139, Potassium 3.5, Chloride 105, Carbon Dioxide 22.6, Anion Gap 11, BUN 11, Creatinine 0.79, Estim Creat Clear Calc 82.77, Est GFR (MDRD) Non-Af 89, BUN/Creatinine Ratio 13.3, G lucose 113 H, Calcium 8.3 10/12/24 11:24: POC Glucose 172 H Rhythm Strip Rhythm Strip: Sinus Rhythm Rate: 91 Ectopy: None Physical Exam Const alert, oriented x3, no apparent distress and average body habitus Constitutional Narrative: looks a bit better today. General Appearance: cooperative and well kempt Orientation / Consciousness: awake, oriented to person and oriented to place HEENT normocephalic, head/scalp atraumatic, hearing grossly normal bilaterally, moist oral mucous membranes and oropharynx normal Eyes PERRL, EOMs intact bilaterally and conjunctivae normal Neck supple, no JVD, thyroid normal and no carotid bruits General: trachea midline Lymph Lymphatic: no lymphadenopathy noted and no lymphedema noted Resp normal respiratory effort, normal air movement, no retractions, no use of accessory muscles and clear to auscultation bilaterally Cardio regular rate, regular rhythm, S1 normal heart sound, S2 normal heart sound and no murmurs GI normal to inspection, nondistended, normoactive bowel sounds, soft to palpation and non-tender GI Narrative: mild epigastric tenderness, no guarding or rebound tenderness.l Extremity normal capillary refill, no clubbing, cyanosis or edema and no calf tenderness General Extremity: no tenderness to palpation of joints or extremities Skin no rashes or lesions noted General Skin Exam: no breakdown Neuro CN's II-XII intact bilaterally, no focal motor deficits and no sensory deficits noted Sensorium / Orientation: awake, alert, oriented to person and oriented to place Speech: speech normal Motor Exam: strength 5/5 throughout and general weakness Psych thought process normal and cooperative Psych Narrative: Patient exhibits mild cognitive impairment Appearance: appropriate Assessment & Plan Assessment/Plan (1) Pancreatitis: PLAN: Plan #Acute pancreatitis * admitted with a complaint of abdominal pain. * CT abdomen showed evidence of acute pancreatitis. Thought to be due to Ozempic use. * Abdominal pain has improved a bit today so we will start patient on clear liquids today. IV morphine as needed for pain as well as p.o. oxycodone * #Type 2 diabetes mellitus: * Ozempic will need to be discontinued due to the pancreatitis. * On insulin sliding scale. * Accu-Cheks ACHS. * lantus on hold #Leukocytosis: Resolved. WBC is down to 11. Was likely reactive. #Elevated blood pressure: * Also known hypertensive. Blood pressure has improved today and is 126/77. * On IV hydralazine as needed * If remains elevated will start on oral BP medication. #Elevated bilirubin: * Bwas up to 1.73 yesterday * Was 1.85 on admission. * AST and ALT as well as ALP are within normal limits. * CT of the abdomen showed mild degree of acute pancreatitis involving the head of the pancreas with surrounding inflammatory changes and punctate calcification as well as fatty infiltration of the liver, cyst in both kidneys and sigmoid diverticulosis. * Abdominal ultrasound showed diffusely echogenic liver and decayed and fatty infiltration and no stones, sludge, wall thickening or tenderness of the gallbladder and common bile duct was normal. * This is therefore likely due to fatty liver. * Follow-up with PCP and gastroenterology on outpatient basis. 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 #Hyperlipidemia: On Zetia and atorvastatin #BPH: On Flomax DVT prophylaxis: Already on Eliquis as stated above. Charges/Coding Visit Charges Inpatient E&M: 98834 Subs Hosp L2
[2024-10-12 15:16] VITALS: BP 135/61; PULSE 81; RESP 16; TEMP 36.6; O2SAT 98
[2024-10-12] MEDS: 0.9% Saline Lock 10 ML Syringe IV (16:15)
[2024-10-12 16:42] LABS: Bedside Glucose 153 mg/dL (74-106)
[2024-10-12] MEDS: Acetaminophen 325 MG Tablet 650 MG PO (16:58)
[2024-10-12 21:06] VITALS: BP 136/68; PULSE 74; RESP 18; TEMP 36.6; O2SAT 97
[2024-10-12] MEDS: Tamsulosin HCl 0.4 MG Capsule PO (21:12)
[2024-10-12] MEDS: Atorvastatin Calcium 80 MG Tablet PO (21:12)
[2024-10-12 21:34] LABS: Bedside Glucose 146 mg/dL (74-106)
[2024-10-13 03:50] VITALS: BP 134/58; PULSE 76; RESP 18; TEMP 36.6; O2SAT 97
[2024-10-13] MEDS: Acetaminophen 325 MG Tablet 650 MG PO (03:56)
[2024-10-13 06:41] LABS: Absolute Lymphocyte Count 1.29 X10^3/uL (0.83-4.51); Absolute Neutrophil Count 3.9 X10^3/uL (2.0-7.7); Basophil# 0.04 X10^3/uL; Basophil% 0.7 % (0-1); Eosinophil# 0.26 X10^3/uL; Eosinophils% 4.4 % (0-5); Hematocrit 31.2 % (40-54); Lymphocyte # 1.29 X10^3/ul (0.83-4.51); Lymphocyte % 21.8 % (19-41); Mean Corp Hgb Conc 35.3 g/dL (32-36); Mean Corpuscular Hgb 30.5 pg (27.0-32.0); Mean Corpuscular Volume 86.4 fL (80-94); Mean Platelet Vol. 9.6 fl (6.2-12.0); Monocyte% 6.8 % (0-10); NRBC Flagged by Analyzer 0 % (0-5); Neutrophil # 3.92 X10^3/uL (2.7-7.7); Neutrophil % 66.1 % (47-70); Platelet Count 166 K/mm3 (150-450); RBC Distribution Width CV 13.2 % (11.6-14.6); RBC Distribution Width SD 41.3 fl (35.1-43.9); Red Blood Count 3.61 M/mm3 (4.6-6.2); White Blood Count 5.9 K/mm3 (4.4-11.0)
[2024-10-13] MEDS: Insulin Lispro 100 UNIT/ML INSULN.PEN SC ×2 (06:46→11:03)
[2024-10-13 07:09] LABS: Anion Gap 11 (5-15); BUN 12 mg/dL (4-19); BUN/Creat Ratio 14.5 RATIO (10-20); Calcium,Total 8.5 mg/dL (7.6-11.0); Carbon Dioxide 21.9 mmol/L (21.0-32.0); Chloride 104 mmol/L (98-108); Creatinine, Serum 0.85 mg/dL (0.70-1.20); EST Glomerular Filtration Rate 87 (>60); Glucose 187 mg/dL (70-99); Potassium 3.2 mmol/L (3.3-5.1); Sodium Level 137 mmol/L (133-145)
[2024-10-13 07:10] LABS: Bedside Glucose 175 mg/dL (74-106)
[2024-10-13] MEDS: APIXABAN 5 MG TABLET PO (08:02)
[2024-10-13] MEDS: Pantoprazole Sodium 20 MG Tablet PO (08:02)
[2024-10-13] MEDS: Ezetimibe 10 MG Tablet PO (08:02)
[2024-10-13 08:09] VITALS: BP 134/74; PULSE 75; RESP 16; TEMP 36.6; O2SAT 97
[2024-10-13 11:20] VITALS: BP 143/66; PULSE 72; RESP 16; TEMP 36.6; O2SAT 100
[2024-10-13 11:22] LABS: Bedside Glucose 185 mg/dL (74-106)
--- NOTE | 2024-10-13 11:58 | DCINST_ITS ---
Discharge Instructions Diet Discharge Diet: Low fat / Low cholesterol and 1800 Calorie Control Diet DC O2, CPAP, BIPAP needs Home O2 Discharge instructions: No Dressing / Incision Discharge Activity: Return to Normal Activity Weight Bearing Status: Weight bearing as tolerated Dressing / Incision Call your doctor if you observe: Fever of 101 or Higher, Shortness of breath, Dizziness, Swelling in the ankles, Chest pain and Uncontrolled pain Follow Up Care Test Results: Test results from this visit will be discussed in further detail at your follow- up appointment, if applicable. Discharge Plan Admission Admit Date/Time: 10/11/24 15:23 Primary Reason for Your Visit: acute pancreatitis Attending Provider: Mel Dubon Primary Care Provider: [facility],[place] Consulting Providers: Alaina Aguialr; Han Mart Instructions Patient Instructions: Pancreatitis Acute Dc Discharge Orders/Prescriptions Prescriptions: New oxycodone 5 mg tablet 5 mg PO Q6H PRN (Reason: pain) 3 Days Qty: 12 0RF Continued atorvastatin 80 MG tablet 80 mg PO QHS tamsulosin 0.4 MG capsule 0.4 mg PO QHS Eliquis 5 MG tablet 5 mg PO BID loratadine 10 MG capsule 10 mg PO DAILY PRN (Reason: Allergies) ondansetron 4 MG tablet 4 mg PO Q8H PRN PRN (Reason: Nausea) Qty: 10 0RF acetaminophen 325 mg Tablet 325 mg PO Q6H PRN (Reason: Pain) insulin glargine 100 unit/mL Solution 55 unit SUBCUT QPM pantoprazole 20 mg Tablet,Delayed Release (Dr/Ec) 20 mg PO DAILY nitroglycerin 0.4 mg Tablet, Sublingual 0.4 mg SUBLINGUAL Q5M PRN (Reason: Chest Pain) ezetimibe 10 mg Tablet 10 mg PO DAILY fluticasone furoate-vilanterol 100-25 mcg/dose Blister With Device 1 inh INHALATION DAILY finasteride 5 mg tablet 5 mg PO DAILY Discontinued semaglutide 1 mg/dose (4 mg/3 mL) Pen Injector 0.25 mg SUBCUT QWEEK Referrals / Follow Up: [facility],[place] [Primary Care Provider] - Within 1 Week Disposition Disposition (needs filled in before D/C Order can be placed): Home, Self Care
--- NOTE | 2024-10-13 11:59 | DS.PCM_ITS ---
Providers Date of Admission: 10/11/24 Date of Discharge: 10/13/24 Primary Care Physician: [facility] Consultations 10/10/24 14:53 Consult: General Surgery Routine Consulting Provider: Alaina Aguilar Reason for Consult: Pancreatitis EMERGENT Consult: No MD Notified: Yes Date Notified: 10/10/24 Time Notified: 13:01 Method of Notification: Verbal Reason For Visit: ABDOMINAL PAIN Diagnosis Discharge Diagnosis (1) Pancreatitis: Status: Acute Code(s): K85.90 - Acute pancreatitis without necrosis or infection, unspecified Plan #Acute pancreatitis * admitted with a complaint of abdominal pain. * CT abdomen showed evidence of acute pancreatitis. Thought to be due to Ozempic use. * Abdominal pain has improved a bit today so we will start patient on clear liquids today. IV morphine as needed for pain as well as p.o. oxycodone * #Type 2 diabetes mellitus: * Ozempic will need to be discontinued due to the pancreatitis. * On insulin sliding scale. * Accu-Cheks ACHS. * lantus on hold #Leukocytosis: Resolved. WBC is down to 11. Was likely reactive. #Elevated blood pressure: * Also known hypertensive. Blood pressure has improved today and is 126/77. * On IV hydralazine as needed * If remains elevated will start on oral BP medication. #Elevated bilirubin: * Bwas up to 1.73 yesterday * Was 1.85 on admission. * AST and ALT as well as ALP are within normal limits. * CT of the abdomen showed mild degree of acute pancreatitis involving the head of the pancreas with surrounding inflammatory changes and punctate calcification as well as fatty infiltration of the liver, cyst in both kidneys and sigmoid diverticulosis. * Abdominal ultrasound showed diffusely echogenic liver and decayed and fatty infiltration and no stones, sludge, wall thickening or tenderness of the gallbladder and common bile duct was normal. * This is therefore likely due to fatty liver. * Follow-up with PCP and gastroenterology on outpatient basis. 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 #Hyperlipidemia: On Zetia and atorvastatin #BPH: On Flomax DVT prophylaxis: Already on Eliquis as stated above. Medications at Discharge Home Medications apixaban 5 mg tablet (Eliquis) 5 mg PO BID BLOOD CLOTS 08/11/17 atorvastatin 80 mg tablet 80 mg PO QHS CHOLESTEROL 08/11/17 tamsulosin 0.4 mg capsule 0.4 mg PO QHS PROSTATE/URINATION 08/11/17 loratadine 10 mg capsule 10 mg PO DAILY PRN Allergies 06/04/18 ondansetron 4 mg disintegrating tablet 4 mg PO Q8H PRN PRN Nausea #10 tabs 06/05/18 acetaminophen 325 mg tablet 325 mg PO Q6H PRN Pain 11/09/21 ezetimibe 10 mg tablet 10 mg PO DAILY 11/09/21 fluticasone furoate 100 mcg-vilanterol 25 mcg/dose inhalation powder 1 inh inhalation DAILY 11/09/21 insulin glargine 100 unit/mL subcutaneous solution 55 unit subcut QPM 11/09/21 nitroglycerin 0.4 mg sublingual tablet 0.4 mg sublingual Q5M PRN Chest Pain 11/09/21 pantoprazole 20 mg tablet,delayed release 20 mg PO DAILY 11/09/21 finasteride 5 mg tablet 5 mg PO DAILY 10/11/24 oxycodone 5 mg tablet 5 mg PO Q6H PRN pain 3 days #12 tabs 10/13/24 Hospital Course Operations None Procedures None Summary of Care Provided Minutes Spent on Discharge: 45 Hospital Course: Patient is an 84-year-old male with a past medical history as outlined was admitted to the ED on 10/10/2024 with complaint of abdominal pain which have been going on for about 3 days prior to admission. Pain was mainly in the epigastric region. He denied any nausea or vomiting. His lipase was slightly elevated when he came in. He had been seen in the ED on 10/09/[address] of the abdomen done showed evidence of acute pancreatitis. He was discharged home but came back the next day with complaints of worsening abdominal pain. In the ED, bilirubin was elevated at 1.85 with lipase which was [address] of the abdomen and pelvis done showed evidence of mild acute pancreatitis involving the head of the pancreas with surrounding inflammatory changes and punctate calcification as well as fatty infiltration of the liver. Abdominal ultrasound showed fatty infiltration of the liver with no gallstones or gallbladder sludge or wall thickening. Common bile duct was not dilated. ED discussed with general surgery who did not think that patient needed any surgical intervention. Patient was on Ozempic which was thought to be possibly the cause of the acute pancreatitis. He was admitted and managed for acute pancreatitis likely precipitated by Ozempic use. He was kept n.p.o. and hydrated with IV fluids and also given IV and oral pain medication. His pain gradually improved and he felt better. He was started on clear liquid diet which he tolerated and this was advanced to a soft diet. Patient tolerated this as well. He was therefore discharged on 10/13/2024. Was given a prescription for p.o. oxycodone 5 mg every 6 hours as needed for total of 12 tablets for 3 days. OARRS score was checked with no red flags seen. Ozempic was discontinued permanently and patient was counseled that he will need to follow-up with his PCP for adjustment of his insulin dose as needed. He was continued on his Lantus 55 units daily. As stated he is follow-up with his primary care doctor within 1 to 2 weeks. Patient seen and examined prior to discharge. He felt well and had no complaints. He had an uneventful night. Review of symptoms otherwise negative. Labs and vitals reviewed. Home medication reviewed and reconciled. Physical Exam Const alert, oriented x3, no apparent distress, average body habitus and healthy appearing General Appearance: cooperative, comfortable, well kempt and well developed Orientation / Consciousness: awake, oriented to person and oriented to place Exam Limitations: no limitations HEENT normocephalic, head/scalp atraumatic, hearing grossly normal bilaterally, moist oral mucous membranes and oropharynx normal Mouth: oral and palatal mucosa normal Eyes PERRL, EOMs intact bilaterally and conjunctivae normal Neck supple, no JVD, thyroid normal and no carotid bruits General: trachea midline Lymph Lymphatic: no lymphadenopathy noted and no lymphedema noted Resp normal respiratory effort, normal air movement, no retractions, no use of accessory muscles and clear to auscultation bilaterally Auscultation: Negative for rales, rhonchi or wheezes Cardio regular rate, regular rhythm, S1 normal heart sound, S2 normal heart sound, no murmurs, no rub and no gallops GI normal to inspection, nondistended, normoactive bowel sounds, soft to palpation and non-tender GI Narrative: mild epigastric tenderness, no guarding or rebound tenderness. Extremity normal to inspection, full ROM, normal capillary refill, no clubbing, cyanosis or edema and no calf tenderness General Extremity: no tenderness to palpation of joints or extremities Skin no rashes or lesions noted General Skin Exam: no breakdown Neuro CN's II-XII intact bilaterally, no focal motor deficits and no sensory deficits noted Neuro Narrative: Patient exhibits mild cognitive impairment Sensorium / Orientation: awake, alert, oriented to person and oriented to place Speech: speech normal Motor Exam: strength 5/5 throughout and general weakness Psych thought process normal and cooperative Psych Narrative: Patient exhibits mild cognitive impairment Appearance: appropriate Weight / BMI Weight Weight: 196 lb 13.965 oz Body Mass Index (BMI) 25.2 ABG / Lab / Microbiology Data 10/13/24 06:19 10/13/24 06:19 Laboratory: Laboratory Results - last 24 hr 10/12/24 16:20: POC Glucose 153 H 10/12/24 21:11: POC Glucose 146 H 10/13/24 06:19: WBC 5.9, RBC 3.61 L, Hgb 11.0 L, Hct 31.2 L, MCV 86.4, MCH 30.5, MCHC 35.3, RDW Std Deviation 41.3, RDW Coeff of Melany 13.2, Plt Count 166, MPV 9.6, Immature Gran % (Auto) 0.200, Neut % (Auto) 66.1, Lymph % (Auto) 21.8, Haines % (Auto) 6.8, Eos % (Auto) 4.4, Baso % (Auto) 0.7, Absolute Neuts (auto) 3.9, Absolute Lymphs (auto) 1.29, Nucleated RBC % 0, Sodium 137, Potassium 3.2 L, Chloride 104, Carbon Dioxide 21.9, Anion Gap 11, BUN 12, Creatinine 0.85, Estim Creat Clear Calc 77.90, Est GFR (MDRD) Non-Af 87, BUN/Creatinine Ratio 14.5, G lucose 187 H, Calcium 8.5 10/13/24 06:46: POC Glucose 175 H 10/13/24 11:02: POC Glucose 185 H D/C Instructions Discharge Diet: Low fat / Low cholesterol and 1800 Calorie Control Diet Discharge Activity: Return to Normal Activity Weight Bearing Status: Weight bearing as tolerated Call your doctor if you observe: Fever of 101 or Higher, Shortness of breath, Dizziness, Swelling in the ankles, Chest pain and Uncontrolled pain DC O2, CPAP, BIPAP Needs Home O2 Discharge instructions: No DC home with Oxygen: No Meaningful Use Info Meaningful Use Meaningful Use Diagnoses (Choose all that apply): None applicable Ischemic Stroke Statin Dosing Therapy Reference: STATIN DOSE THERAPY REFERENCE: * Patients > 75 years receive moderate or high dose statin therapy. * Patients 75 years or YOUNGER should receive HIGH intensity statin dose unless contraindicated. You will be required to document reason for non-treatment if statin daily dose does not meet guidelines. HIGH DOSE STATIN THERAPY DAILY Atorvastatin > than or = to 40 mg Rosuvastatin > than or = to 20 mg Amlodipine + Atorvastatin > than or = to 2.5/40 mg Ezetimibe + Simvastatin 10/80 mg Simvastatin 80mg Discharge Plan Admission Admit Date/Time: 10/11/24 15:23 Primary Reason for Your Visit: acute pancreatitis Attending Provider: Mel Dubon Primary Care Provider: [facility] Consulting Providers: Alaina Aguilar; [facility] Instructions Patient Instructions: Pancreatitis Acute Dc Discharge Orders/Prescriptions Prescriptions: New oxycodone 5 mg tablet 5 mg PO Q6H PRN (Reason: pain) 3 Days Qty: 12 0RF Continued atorvastatin 80 MG tablet 80 mg PO QHS tamsulosin 0.4 MG capsule 0.4 mg PO QHS Eliquis 5 MG tablet 5 mg PO BID loratadine 10 MG capsule 10 mg PO DAILY PRN (Reason: Allergies) ondansetron 4 MG tablet 4 mg PO Q8H PRN PRN (Reason: Nausea) Qty: 10 0RF acetaminophen 325 mg Tablet 325 mg PO Q6H PRN (Reason: Pain) insulin glargine 100 unit/mL Solution 55 unit SUBCUT QPM pantoprazole 20 mg Tablet,Delayed Release (Dr/Ec) 20 mg PO DAILY nitroglycerin 0.4 mg Tablet, Sublingual 0.4 mg SUBLINGUAL Q5M PRN (Reason: Chest Pain) ezetimibe 10 mg Tablet 10 mg PO DAILY fluticasone furoate-vilanterol 100-25 mcg/dose Blister With Device 1 inh INHALATION DAILY finasteride 5 mg tablet 5 mg PO DAILY Discontinued semaglutide 1 mg/dose (4 mg/3 mL) Pen Injector 0.25 mg SUBCUT QWEEK Referrals / Follow Up: [facility] [Primary Care Provider] - Within 1 Week Disposition Disposition (needs filled in before D/C Order can be placed): Home, Self Care Charges/Coding Visit Charges Inpatient E&M: 39642 Disch Hosp >30min
--- NOTE | 2024-10-15 12:37 | CASEMGMT ---
Received notification from Shital at [facility], they will accept pt for care. She will call pt to make aware of services.
== END 2024-10-13 13:53 | disposition home or self-care (01) | DRG 440 ==
LOC: ED 05:44 → SDC 09:45 → ACINP 09:46 → MS3 15:39 → SDC 17:28 → MS3 17:28
PROVIDERS: Emergency Medicine; Admitting Provider Internal Medicine; Emergency Provider Emergency Medicine; Visit Provider Student in an Organized Health Care Education/Training Program
DX: K85.90 Acute pancreatitis without necrosis or infection, unspecified (principal); E11.65 Type 2 diabetes mellitus with hyperglycemia; J44.9 Chronic obstructive pulmonary disease, unspecified; F03.A0 Unspecified dementia, mild, without behavioral disturbance, psychotic disturbance, mood disturbance, and anxiety; K76.0 Fatty (change of) liver, not elsewhere classified; Z79.4 Long term (current) use of insulin; E78.5 Hyperlipidemia, unspecified; K21.9 Gastro-esophageal reflux disease without esophagitis; I25.10 Atherosclerotic heart disease of native coronary artery without angina pectoris; K57.30 Diverticulosis of large intestine without perforation or abscess without bleeding; Z86.718 Personal history of other venous thrombosis and embolism; N28.1 Cyst of kidney, acquired; R03.0 Elevated blood-pressure reading, without diagnosis of hypertension; Z79.85 Long-term (current) use of injectable non-insulin antidiabetic drugs
CPT/HCPCS: 36415; 74177; 76705; 80048; 80053; 80076; 81001; 82962; 83605; 83690; 85025; 93005; 97802; 99285; Q9967; A4216; J2405

== ENCOUNTER 2024-12-05 20:16 | Emergency (ER) | payer OTHER, SELFPAY ==
[2022-01-05 12:43] VITALS: BMI 27.5
[2024-12-05 20:19] VITALS: BP 148/90; PULSE 87; RESP 18; TEMP 36.2; O2SAT 99; BMI 26.1
[2024-12-05 21:23] LABS: Bedside Glucose 189 mg/dL (74-106)
--- NOTE | 2024-12-05 22:05 | CT_ITS ---
PROCEDURE: BRAIN/HEAD WITHOUT CONTRAST 12/05/2024 REASON FOR EXAM: HEADACHE TECHNIQUE: Head CT without intravenous contrast. Coronal and Sagittal reconstruction series were provided. One or more dose reduction techniques were used (e.g., Automated exposure control, adjustment of the mA and/or kV according to patient size, use of iterative reconstruction technique. COMPARISON: CT brain 02/13/2024 FINDINGS: No acute intracranial hemorrhage, mass, mass effect, midline shift or pathologic extra-axial fluid collection. Mild parenchymal atrophy with commensurate increase in CSF containing spaces. Small focus of encephalomalacia right lentiform nucleus, from prior lacunar infarct. Patchy white matter hypodensities, patient demographics favor chronic microvascular ischemic changes. Near complete opacification bilateral maxillary sinuses. Mild-moderate paranasal sinus mucosal thickening otherwise. Trace mastoid effusions. Bilateral lens replacements. The calvarium is grossly intact. CT/Brain/Head without Contrast IMPRESSION: No acute intracranial abnormality. Chronic microvascular ischemia and involutional changes. Reading Location: [facility]
[2024-12-05 22:18] VITALS: BP 167/81; PULSE 77; RESP 18
[2024-12-05] MEDS: DiphenhydrAMINE 50 MG/ML Syringe 25 MG IV (22:20)
[2024-12-05] MEDS: Metoclopramide 10 MG/2 ML Vial IV (22:20)
[2024-12-05] MEDS: Ketorolac 15 MG/ML Vial IV (22:20)
[2024-12-05] MEDS: 0.9% Normal Saline (500mL Bag) 500 ML 999 ML IV (22:22)
--- NOTE | 2024-12-05 23:35 | EX.ED.DYSGE1 ---
HPI History of Present Illness Chief Complaint: Vision Prob Informant: patient and spouse/S.O. Narrative Narrative: Patient is 84-year-old male with past medical history of GERD hypertension hyperlipidemia and insulin-dependent type 2 diabetes. Patient states that he has remote history of migraine headache that was diagnosed roughly when he was a teenager. He states that headaches improved throughout the adult life but in the last years he will get them intermittently. He states over the last month they have been more recurrent. He states that today he got changes in vision followed by headache which he states is a normal prodrome for him. He states he is sensitive to light and sound. He denies any recent trauma or sick symptoms. He states he typically can take [id number] medication and take a nap and the headache resolves but tonight it could not do so. He reports that he has had spontaneous improvement of his vision but the headache has persisted and therefore he presents for evaluation [facility] Medical History Dizziness Chronic shortness of breath GERD (gastroesophageal reflux disease) Coronary artery disease Pulmonary embolism Restrictive lung disease Diabetes type 2, controlled COPD (chronic obstructive pulmonary disease) Home Medications ?Medication ?Instructions ?Recorded ?Last Taken ?Type apixaban 5 mg tablet (Eliquis) 5 mg PO BID BLOOD CLOTS 08/11/17 Unknown History atorvastatin 80 mg tablet 80 mg PO QHS CHOLESTEROL 08/11/17 Unknown History tamsulosin 0.4 mg capsule 0.4 mg PO QHS PROSTATE/URINATION 08/11/17 Unknown History loratadine 10 mg capsule 10 mg PO DAILY PRN Allergies 06/04/18 Unknown History ondansetron 4 mg disintegrating 4 mg PO Q8H PRN PRN Nausea #10 tabs 06/05/18 Unknown Rx tablet acetaminophen 325 mg tablet 325 mg PO Q6H PRN Pain 11/09/21 Unknown History ezetimibe 10 mg tablet 10 mg PO DAILY 11/09/21 Unknown History fluticasone furoate 100 1 inh inhalation DAILY 11/09/21 Unknown History mcg-vilanterol 25 mcg/dose inhalation powder insulin glargine 100 unit/mL 55 unit subcut QPM 11/09/21 Unknown History subcutaneous solution nitroglycerin 0.4 mg sublingual 0.4 mg sublingual Q5M PRN Chest 11/09/21 Unknown History tablet Pain pantoprazole 20 mg tablet,delayed 20 mg PO DAILY 11/09/21 Unknown History release finasteride 5 mg tablet 5 mg PO DAILY 10/11/24 Unknown History oxycodone 5 mg tablet 5 mg PO Q6H PRN pain 3 days #12 10/13/24 Unknown Rx tabs Allergy/AdvReac Type Severity Reaction Status Date / Time No Known Allergies Allergy Verified 12/05/24 20:19 Surgical History H/O adenoidectomy Hx of tonsillectomy H/O hernia repair Social History household members: spouse housing: house Smoking Status: Never smoker ROS ROS ED Constitutional Constitutional ED: Denies chills or fever(s) Eyes Eyes: Reports change in vision ENT ENT ED: Reports rhinorrhea; Denies sore throat Cardiovascular Cardiovascular: Denies chest pain Respiratory/Chest Respiratory/Chest: Denies cough or dyspnea Gastrointestinal Gastrointestinal: Reports nausea; Denies abdominal pain, diarrhea or vomiting Genitourinary Genitourinary ED: Denies dysuria Musculoskeletal Musculoskeletal: Denies myalgias Integumentary Denies rash Neurologic Neurologic: Reports headache(s) Hematologic/Lymphatic Hematologic/Lymphatic: Reports easy bleeding and easy bruising EXAM Physical Exam Const Vital Signs: 12/05/24 20:19 12/05/24 22:18 12/05/24 23:41 Temperature 97.1 F L 97.6 F L Temperature Source Temporal Pulse Rate 87 77 70 Respiratory Rate 18 18 17 Blood Pressure 148/90 H 167/81 H 135/79 H Blood Pressure Mean 109 109 97 Pulse Ox 99 98 Oxygen Delivery Method Room Air Positive well nourished and well developed General Appearance ED: well developed; Negative for pallor HEENT HEENT Narrative: Normocephalic atraumatic Eyes PERRL and EOMs intact bilaterally Eyes Narrative: No paleness to the macula noted No blood and thunder appearance present General Eye ED: Negative for pale conjunctiva or scleral icterus Neck supple Neck Narrative: No nuchal rigidity or meningeal signs Resp normal respiratory effort Resp Narrative: Breath sounds are diminished throughout with faint expiratory wheeze and rhonchi consistent with history of COPD but no signs of respiratory distress Cardio regular rate and regular rhythm GI normal to inspection, nondistended, normoactive bowel sounds, non-tender, non-distended and no masses Auscultation: normoactive bowel sounds Palpation: soft Extremity normal to inspection Neuro oriented x3, CN's II-XII intact bilaterally and no sensory deficits noted Neuro Narrative: GCS of 15 Cranial nerves II through XII are grossly intact without focal neurologic deficit No pronator drift no dysmetria no truncal ataxia NIH stroke scale score of 0 Sensorium / Orientation: alert Motor Exam: strength 5/5 throughout Psych mental status grossly normal Skin no rashes or lesions noted and no wounds General Skin Exam: Negative for jaundice or pallor MDM MDM MDM Narrative Medical decision making narrative: Patient arrived to the ER hypertensive but otherwise with stable vitals. He reported a long history of migraine headache and states this 1 is similar in nature with prodrome of vision change. However he presents because the headache did not resolve with his typical medication. With his report of Eliquis use there is concern for spontaneous subarachnoid or subdural hemorrhage so I did elect to perform a CT scan. CT scan showed age-related changes without acute bleed or mass. The patient did receive IV fluids as well as Toradol Benadryl and Reglan. On repeat evaluation he reports resolution of his headache and his neurologic exam remains normal. Therefore at this time with resolution of symptoms and a normal head CT do not feel there is need for further workup and is otherwise safe for discharge History & Record Review Discussion w/independent historian: Patient and Significant other Lab Data Labs: Laboratory Results - last 24 hr 12/05/24 21:04 POC Glucose 189 H Radiography Diagnostic Testing: Clinical Impression(s) from Imaging Studies Brain CT 12/05/24 22:05 IMPRESSION: No acute intracranial abnormality. Chronic microvascular ischemia and involutional changes. Reading Location: [facility] Discharge Plan Triage Chief Complaint: Vision Prob ED Provider: Chandu Gill Dx/Rx/DC Orders Clinical Impression: Atypical migraine, Hyperlipidemia, Hypertension, Type 2 diabetes mellitus Instructions: Migraine Triggers, ED, Migraine (Classical) Prescriptions: No Action atorvastatin 80 MG tablet 80 mg PO QHS tamsulosin 0.4 MG capsule 0.4 mg PO QHS Eliquis 5 MG tablet 5 mg PO BID loratadine 10 MG capsule 10 mg PO DAILY PRN (Reason: Allergies) ondansetron 4 MG tablet 4 mg PO Q8H PRN PRN (Reason: Nausea) Qty: 10 0RF acetaminophen 325 mg Tablet 325 mg PO Q6H PRN (Reason: Pain) insulin glargine 100 unit/mL Solution 55 unit SUBCUT QPM pantoprazole 20 mg Tablet,Delayed Release (Dr/Ec) 20 mg PO DAILY nitroglycerin 0.4 mg Tablet, Sublingual 0.4 mg SUBLINGUAL Q5M PRN (Reason: Chest Pain) ezetimibe 10 mg Tablet 10 mg PO DAILY fluticasone furoate-vilanterol 100-25 mcg/dose Blister With Device 1 inh INHALATION DAILY finasteride 5 mg tablet 5 mg PO DAILY oxycodone 5 mg tablet 5 mg PO Q6H PRN (Reason: pain) 3 Days Qty: 12 0RF Primary Care Provider[facility] [facility] [Primary Care Provider] - Activity Restrictions/Additional Instructions: Please return to the ER if you have any further concerns or worsening of symptoms. Otherwise follow-up with your family doctor to discuss potential neurology referral secondary to your recurrent headaches Print Language: Slovenian Disposition Disposition: Home, Self Care Discharge Date/Time: 12/05/24 23:47
[2024-12-05 23:41] VITALS: BP 135/79; PULSE 70; RESP 17; TEMP 36.4; O2SAT 98
== END 2024-12-05 23:47 | disposition home or self-care (01) ==
PROVIDERS: Emergency Provider Emergency Medicine; Visit Provider Emergency Medicine
DX: G43.909 Migraine, unspecified, not intractable, without status migrainosus (principal); J44.9 Chronic obstructive pulmonary disease, unspecified; E11.9 Type 2 diabetes mellitus without complications; I10 Essential (primary) hypertension; I25.10 Atherosclerotic heart disease of native coronary artery without angina pectoris; E78.5 Hyperlipidemia, unspecified; K21.9 Gastro-esophageal reflux disease without esophagitis
CPT/HCPCS: 70450; 82962; 96361; 96374; 96375; 99284

== ENCOUNTER 2025-06-08 13:24 | Emergency (ER) | payer OTHER, SELFPAY ==
[2022-01-05 12:43] VITALS: BMI 27.5
[2025-06-08 13:24] VITALS: BP 163/80; PULSE 80; RESP 16; TEMP 36.3; O2SAT 99; BMI 26.4
[2025-06-08 15:24] VITALS: BP 172/73; PULSE 71; RESP 15; O2SAT 96
--- NOTE | 2025-06-08 15:25 | ED.VIS.BACK ---
HPI History of Present Illness Chief Complaint: Back Narrative Narrative: Chief complaint and HPI: 85-year-old male with past medical history of DM2, DVT/PE on Eliquis, HTN, HLD, left sciatica presents for evaluation of sciatica flare. Patient states he intermittently has flares of his sciatica. [facility] States 2 days ago he was walking the dog when he tweaked his back. States he has had increased pain in the lumbar back that radiates into his buttocks. States it feels like his typical sciatica flares. Has been using heating pad, Tylenol, muscle relaxer at home with some relief. States that the pain is worse with raising of his left leg. Denies fever, chills, nausea, vomiting, numbness, weakness, urinary retention, stool or urinary incontinence, saddle anesthesia. Review of systems: See HPI Medications: As listed on the chart Allergies: As listed on the chart PFSH: Per chart Vital signs: As listed on the chart. Reviewed. Physical exam: Gen: A&O x3, NAD Head: Normocephalic, atraumatic Eyes: No sclera icterus, conjunctiva clear ENT: Moist mucous membranes full range of motion, nontender Neck: Trachea midline, CV: RRR, no murmurs, no peripheral edema Resp: Lungs CTA BL, no w/r/c GI: Abd soft, non-distended, non-tender, no r/r/g Musc: Full range of motion of all extremities, no deformity, strength +5/5 in all extremities, no midline spinal tenderness, no bony step-offs, mild tenderness to palpation of the paraspinal musculature of the left lumbar spine-recreates his pain, DP/PT pulses +2 bilaterally, no saddle paresthesias, no external signs of trauma or infection Skin: Warm, dry Neuro: Alert, oriented, grossly intact, sensation intact Psych: Cooperative, appropriate mood and affect [facility] Medical History Dizziness Chronic shortness of breath GERD (gastroesophageal reflux disease) Coronary artery disease Pulmonary embolism Restrictive lung disease Diabetes type 2, controlled COPD (chronic obstructive pulmonary disease) Home Medications ?Medication ?Instructions ?Recorded ?Last Taken ?Type apixaban 5 mg tablet (Eliquis) 5 mg PO BID BLOOD CLOTS 08/11/17 06/08/25 History atorvastatin 80 mg tablet 80 mg PO QHS CHOLESTEROL 08/11/17 06/07/25 History tamsulosin 0.4 mg capsule 0.4 mg PO QHS PROSTATE/URINATION 08/11/17 06/07/25 History loratadine 10 mg capsule 10 mg PO DAILY Allergies 06/04/18 06/07/25 History acetaminophen 325 mg tablet 500 mg PO QHS Pain 11/09/21 06/07/25 History ezetimibe 10 mg tablet 10 mg PO DAILY 11/09/21 06/08/25 History insulin glargine 100 unit/mL 32 unit subcut QPM 11/09/21 Unknown History subcutaneous solution finasteride 5 mg tablet 5 mg PO DAILY 10/11/24 06/08/25 History enalapril maleate 5 mg tablet 2.5 mg PO DAILY 06/08/25 06/07/25 History glipizide 5 mg tablet 5 mg PO DAILY 06/08/25 06/08/25 History Allergy/AdvReac Type Severity Reaction Status Date / Time No Known Allergies Allergy Verified 06/08/25 13:26 Family History no significant family his Surgical History H/O adenoidectomy Hx of tonsillectomy H/O hernia repair Social History household members: spouse housing: house Smoking Status: Never smoker EXAM Physical Exam Const Vital Signs: 06/08/25 13:24 06/08/25 15:24 Temperature 97.4 F L Temperature Source Oral Pulse Rate 80 71 Respiratory Rate 16 15 Blood Pressure 163/80 H 172/73 H Blood Pressure Mean 107 106 Pulse Ox 99 96 Oxygen Delivery Method Room Air Room Air MDM MDM MDM Narrative Medical decision making narrative: 85-year-old male with past medical history of DM2, DVT/PE on Eliquis, HTN, HLD, left sciatica presents for evaluation of sciatica flare. Patient states he intermittently has flares of his sciatica. [facility]. States 2 days ago he was walking the dog when he tweaked his back. States he has had increased pain in the lumbar back that radiates into his buttocks. States it feels like his typical sciatica flares. See physical exam findings. Differential diagnosis includes but is not limited to left-sided sciatica, myofascial spasm. There has been no trauma. There is nothing to suggest any infectious etiology. There is no neurologic findings to suggest an acute cauda equina syndrome, infectious etiology, or any acute radiculopathy. At this point I do not feel any emergent imaging is warranted. Patient symptoms will be treated with p.o. Valium, IM morphine, and Lidoderm patch. On reevaluation, patient's pain has almost completely resolved. He is ambulated without difficulty. Patient stable to discharge home. Continue home Tylenol and muscle relaxers. Will give Lidoderm patch prescription. [facility] He confirmed understand the plan. Return precautions explained. Patient will discharge home. Impression: 1. Left sciatica flare 2. History of sciatica Discharge Plan Triage Chief Complaint: Back ED Provider: Bruce Owusu Dx/Rx/DC Orders Prescriptions: No Action atorvastatin 80 MG tablet 80 mg PO QHS tamsulosin 0.4 MG capsule 0.4 mg PO QHS Eliquis 5 MG tablet 5 mg PO BID loratadine 10 MG capsule 10 mg PO DAILY acetaminophen 325 mg Tablet 500 mg PO QHS insulin glargine 100 unit/mL Solution 32 unit SUBCUT QPM ezetimibe 10 mg Tablet 10 mg PO DAILY glipizide 5 mg tablet 5 mg PO DAILY enalapril maleate 5 mg tablet 2.5 mg PO DAILY finasteride 5 mg tablet 5 mg PO DAILY [place] [facility] [place] [Primary Care Provider, None] Print Language: [place]
[2025-06-08] MEDS: Lidocaine 5% Patch 1 PATCH TOPICAL (15:26)
[2025-06-08 16:16] VITALS: BP 156/76; PULSE 78; RESP 18; TEMP 36.3; O2SAT 97
== END 2025-06-08 16:22 | disposition home or self-care (01) ==
PROVIDERS: Emergency Provider Surgery; Visit Provider Surgery
DX: M54.32 Sciatica, left side (principal); J44.9 Chronic obstructive pulmonary disease, unspecified; E11.9 Type 2 diabetes mellitus without complications; I25.10 Atherosclerotic heart disease of native coronary artery without angina pectoris; Z86.718 Personal history of other venous thrombosis and embolism; Z86.711 Personal history of pulmonary embolism; I10 Essential (primary) hypertension; K21.9 Gastro-esophageal reflux disease without esophagitis; Z79.84 Long term (current) use of oral hypoglycemic drugs; Z79.899 Other long term (current) drug therapy; Z79.01 Long term (current) use of anticoagulants
CPT/HCPCS: 96372; 99282